=== PATIENT | female | born 1945 | race Caucasian/White ===

== ENCOUNTER 2025-06-15 09:45 | Outpatient (AMB) | payer OTHER, MEDICARE, SELFPAY ==
--- NOTE | 2025-06-15 09:57 | MHC.OFFVIS ---
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 Patient had CT abdomen/pelvis with contrast on 05/16/25. 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 From reports it appears to be stage II to stage III. 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 This was an incidental finding. She reports she does not know about this previously. 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 She has a known history of osteoarthritis and bursitis of the left hip. She is a nonsmoker but reports a fair amount of secondhand smoke. She is a nondiabetic with the last hemoglobin A1c at 6.3. She reports no other issues at the current time. She is quite concerned about this hypogastric aneurysm as she has a family history of embolism and stroke. She now presents for vascular evaluation. Review of Systems Const All systems reviewed & are unremarkable except as noted in HPI and below Reports no additional complaints ENT Reports Normal hearing present Card Denies chest pain, Denies chest pain at rest, Denies chest pain with activity and Denies pedal edema Resp Denies cough GI Denies abdominal pain Musc Denies abnormal gait, Denies muscle cramps and Denies radiating pain into limb Skin/Breast Denies skin ulcer and Denies wounds Neuro Reports Normal hearing present and Denies abnormal gait Psych Reports no additional complaints Physical Exam Const General: cooperative, healthy appearing and comfortable Orientation/consciousness: oriented to person, oriented to place and oriented to time HEENT Head: Yes normal to inspection Neck Neck: Yes normal visual inspection Carotids: no bruits Chest Chest palpation & inspection: normal inspection of the chest Resp Effort & Inspection: normal respiratory effort and able to speak in complete sentences Auscultation: clear to auscultation bilaterally, no crackles, no rales, no rhonchi and no wheezes Cardio Other: Bilateral palpable dorsalis pedis pulses Rate: regular rate Rhythm: regular rhythm Heart sounds: S1 normal heart sound present and S2 normal heart sound present Bruits: no carotid bruits Peripheral pulses: Peripheral pulses 2+ throughout GI Inspection: Yes normal to inspection Skin Wounds: no wounds Hair: normal Neuro General: oriented to person, oriented to place and oriented to time Cranial nerves: Yes CN's II-XII intact bilaterally and Yes Normal hearing present Cognition (Neuro): normal cognition Motor exam (neuro): 5/5 motor strength present throughout Extrem Other: venous exam: +2 edema with skin color changes General: No clubbing, No cyanosis and No edema Psych Appearance: grossly normal Mental Status: mental status grossly normal Speech and movement: Normal speech and movement present Results Reviewed Results Reviewed: Written report from CAT scan dated 05/16/2025 demonstrates 3 x 3.5 left internal iliac artery aneurysm completely thrombosed compared to 2.9 x 3.1 on prior exam. No evidence of abdominal aortic aneurysm. 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 We have discussed the pathophysiology of hypogastric aneurysms and the risk of ruptures. We have discussed rupture risk based on size. In addition we did discuss that she is at a low risk of rupture as it appears to be thrombosed now. In addition this is not at risk for embolization to the brain as well which was her big concern. In addition we have discussed conservative measures and risk factor modification for prevention of increase in size of the aneurysm. the patient is scheduled for surveillance follow-up in approximately 3 months for surveillance.. Thank you for allowing us to participate in the care of this patient Orders: Orders Blood Urea Nitrogen 3 Months I72.3 - Aneurysm of iliac artery Creatinine 3 Months I72.3 - Aneurysm of iliac artery CT angio abdomen pelvis 3 Months I72.3 - Aneurysm of iliac artery Coding Level of Care Code New Pt Level 4 (55821) Complex EM visit Add On G2211 Diagnoses Aneurysm of left internal iliac artery I72.3
--- OUTSIDE RECORDS SUMMARY | 2025-06-15 10:26 | XMS_ITS | Clinical Summary ---
Author Organization [facility], Address [address] [place] [address] Phone Care Team Providers Care Escalator Service Mechanic Name Role Phone Rachna Dickerson Primary Care Provider [phone] Allergies Active Allergy Reactions Criticality Noted Date Comments Oxycodone-Acetaminophen 05/08/2022 Sulfa Antibiotics Nausea And Vomiting 6 Medications hydroCHLOROthia zide 25 MG tablet Take 1 tablet by mouth 1 (one) time each day if needed For swelling 1 Active lisinopril 20 MG tablet Take 10 mg by mouth 1 (one) time each day if needed For Bps >130/80 1 Active dicyclomine (BENTYL) 20 MG tablet Take 20 mg by mouth every 6 (six) hours Active ibuprofen (ADVIL,MOTRIN) 600 MG tablet Take 600 mg by mouth every 6 (six) hours if needed for mild pain Active Diclofenac Sodium 1 % gel Apply topically Active diphenhydrAMINE (BENADRYL) 25 MG capsule Take 25 mg by mouth at night if needed for itching Active Active Problems Problem Noted Date Diagnosed Date Acute nontraumatic kidney injury, not otherwise specified 05/14/2022 Stage 3a chronic kidney disease 05/06/2022 Hyperlipidemia 06/11/2020 Hypertension 06/11/2020 Type 2 diabetes mellitus without complication Overview (05/06/2022): Has not been on med tx, she declined in the past. A1c stable Resolved Problems Problem Noted Date Diagnosed Date Resolved Date Primary osteoarthritis of left hip 07/15/2021 05/06/2022 Trochanteric bursitis of left hip 07/15/2021 05/06/2022 Gluten sensitivity 05/31/2021 2 Overweight 06/11/2020 05/06/2022 Immunizations Immunization Administration Dates Next Due Influenza Split High Dose Preservative Free IM 1 11/06/2017 Influenza, Trivalent, Adjuvanted 09/01/2017 Influenza, Unspecified 08/03/2017 Tdap 02/27/2016 Zoster 08/03/2017 Family History Medical History Relation Comments No Known Problems Father No Known Problems Mother Relation Status Comments Father Mother Social History Tobacco Use Types Packs/Day Years Used Date Smoking Tobacco: Never Smokeless Tobacco: Never Alcohol Use Standard Drinks/Week Comments Yes 0 (1 standard drink = 0.6 oz pur e alcohol) Rarely Comments Unknown Sex and Gender Information Value Date Recorded Sex Assigned at Not on file Legal Sex Female 1:48 PM EDT Gender Identity Not on file Sexual Orientation Not on file Last Filed Vital Signs Vital Sign Reading Time Taken Comments Blood Pressure 128/78 05/14/2022 4:05 PM EDT Pulse - - Temperature - - Respiratory Rate - - Oxygen Saturation - - Inhaled Oxygen Concentration - - Weight - - Height - - Body Mass Index - - Plan of Treatment Health Maintenance Due Date Last Done Comments Pneumococcal Vaccine: 50+ Years (1 of 2 - PCV) 1965 Diabetes: Hemoglobin A1C 03/13/2022 Diabetes: Ophthalmology Exam 03/13/2022 Diabetes: Pedal Pulse Checked 03/13/2022 Diabetes: Sensory Foot Exam 03/13/2022 Diabetes: Visual Foot Exam 03/13/2022 Influenza Vaccine (#1) 2025 8, 09/01/2017, 08/03/2017 Hepatitis B Vaccine Aged Out No longe r eligible based on patient's age to complete this topic Insurance [facility] Health Care Teams Escalator Service Mechanic Relationship Specialty Start Date End Date Rachna Dickerson [address] [place] [phone] PCP - General 03/12/22
--- OUTSIDE RECORDS SUMMARY | 2025-06-15 10:26 | XMS_ITS | Clinical Summary ---
Author Organization [facility] Address [address] [place] [address] Phone Care Team Providers Care Dynamite Packing Machine Feeder Name Role Phone Avtargeni Natashasukhdev Primary Care Provider [phone] Surgical History Surgery Date Site/Laterality Comments ABDOMINAL SURGERY PROCEDURE: HISTORICAL ABDOMINAL SURGERY Medical History Medical History Date Comments Headache DX:Headache Double vision DX:Double vision Essential hypertension DX:Essent ial hypertension Diabetes mellitus type 2, co ntrolled, with complications (CMS/HCC V24, CMS/HCC V28) DX:Diabetes mellitus type 2, controlled, with complications ([facility]) Social History Tobacco Use Types Packs/Day Years Used Date Smoking Tobacco: Never Smokeless Tobacco: Never Comments Unknown Sex and Gender Information Value Date Recorded Sex Assigned at Not on file Legal Sex Female 11:07 AM EDT Gender Identity Not on file Sexual Orientation Not on file Obstetrics History Last Filed Vital Signs Vital Sign Reading Time Taken Comments Blood Pressure - - Pulse - - Temperature - - Respiratory Rate - - Oxygen Saturation - - Inhaled Oxygen Concentration - - Weight 90.7 kg (200 lb) 02/04/2024 2:51 PM EDT Height 162.6 cm (5' 4 ) 02/04/2024 2:51 PM EDT Body Mass Index 34.33 02/04/2024 2:51 PM EDT Plan of Treatment Health Maintenance Due Date Last Done Comments DTaP,Tdap,and Td Vaccines (1 - Tdap) 1964 Pneumococcal Vaccine: 50+ Ye ars (1 of 1 - PCV) 1996 Zoster Vaccines (1 of 2) 1996 RSV Immunization Adult Patie nts (1 - 1-dose 75+ series) 2021 Falls Risk Assessment 05/27/2024 Hepatitis C Screening 05/27/2024 Medicare Annual Wellness Visit 05/27/2024 Osteoporosis Screening (Bone Density Screening) 05/27/2024 Social Influencers of Health Screening 05/27/2024 COVID-19 Vaccine (1 - 2023-2 5 season) 2024 Depression Screening 11/02/2024 Influenza Vaccine (#1) 2025 HIB Vaccines Aged Out No longer eligi ble based on patient's age to complete this topic HPV Vaccines Aged Out No longer eligi ble based on patient's age to complete this topic Hepatitis A Vaccines Aged Out No long er eligible based on patient's age to complete this topic Hepatitis B Vaccines Aged Out No long er eligible based on patient's age to complete this topic IPV Vaccines Aged Out No longer eligi ble based on patient's age to complete this topic MMR Vaccines Aged Out No longer eligi ble based on patient's age to complete this topic Meningococcal ACWY Vaccine Aged Out N o longer eligible based on patient's age to complete this topic Meningococcal B Vaccine Aged Out No l onger eligible based on patient's age to complete this topic RSV Immunization Patients Un bubba 20 months Aged Out No longer eligible b ased on patient's age to complete this topic Varicella Vaccines Aged Out No longer eligible based on patient's age to complete this topic Insurance [employer] Care Teams Dynamite Packing Machine Feeder Relationship Specialty Start Date End Date Duke Lopes DO [address] [place] [address] [phone] PCP - General 01/25/24
--- OUTSIDE RECORDS SUMMARY | 2025-06-15 10:26 | XMS_ITS | Encounter Summary ---
Author Organization [facility] Address [address] [place] [address] [place] [address] Phone Care Team Providers Care Dermatologist And Dermatopathologist Name Role Phone Pcp, Unknown Unavailable Unavailable Duke Lopes DO Primary Care Provider [phone] Mer Sellers MD Unavailable [phone] Hung Merchant EQUIPMENT MAINT TECH Primary Care Provider [phone] Encounter Details Date Type Department Care Team (Late st Contact Info) Description 03/01/2024 Procedure Pass [facility], Ct Scan - [address] [address] Social History Tobacco Use Types Packs/Day Years Used Date Smoking Tobacco: Never Smokeless Tobacco: Never Alcohol Use Standard Drinks/Week Comments Yes 0 (1 standard drink = 0.6 oz pur e alcohol) occ Education Answer Date Recorded Are you interested in more education? Not on bentley e 02/27/2023 Are you concerned about learning? Not on file 02/27/2023 No 02/27/2023 No 02/27/2023 Digital Access Answer Date Recorded No 03/30/2023 No 03/30/2023 Reliable internet access at home? Not on file 03/30/2023 Device with a working camera? Not on file Comments No Sex and Gender Information Value Date Recorded Sex Assigned at Not on file Legal Sex Female 10:37 PM EDT Gender Identity Not on file Sexual Orientation Not on file documented as of this encounter Plan of Treatment Upcoming Encounters Date Type Department Care Team (Late st Contact Info) Description 05/23/2025 Procedure Pass [facility], Mammography- [address] [address] 11/24/2025 10:00 AM EST Office Visit [facility] [address] [place] [address] Mer Sellers MD [address] [place] [phone] [email or web address] 11/29/2025 4:00 PM EST Office Visit [address] [address] Hung Merchant CNP [address] [place] [address] 01/05/2026 10:45 AM EST Appointment [address] [address] Mer Sellers MD [address] [place] [email or web address] documented as of this encounter Visit Diagnoses Not on filedocumented in this encounter Additional Health Concerns Assessment Noted Time PHQ-2 Depression Total Score: 0 05/31/20 21 12:36 PM EDT documented as of this encounter Care Teams Dermatologist And Dermatopathologist Relationship Specialty Start Date End Date Duke Lopes DO [address] [place] [phone] [email or web address] PCP - General Internal Medicine 03/05/23 05/10/24 Hung Merchant, EQUIPMENT MAINT TECH [address] [place] [phone] PCP - General Nurse Practitioner 05/11/24 Pcp, Unknown 11/05/17 Mer Sellers MD [address] [place] [address] [email or web address] Medical Oncology 04/14/23 documented as of this encounter Additional Source Comments The information contained in this document represents components of the legal health record. It is not the complete legal health record.[facility]
== END 2025-06-15 10:31 | disposition home or self-care (01) ==
LOC: HO.HVS 09:46
PROVIDERS: Visit Provider Surgery Vascular Surgery
DX: I72.3 Aneurysm of iliac artery (principal)
CPT/HCPCS: 99204; G2211

== ENCOUNTER 2025-08-23 09:19 | Outpatient (REF) | payer OTHER, SELFPAY ==
[2025-08-23 09:44] LABS: MANUAL DIFF FLAG NO
--- OUTSIDE RECORDS SUMMARY | 2025-08-23 10:41 | XMS_ITS | Encounter Summary ---
Author Organization [facility] Address [address] [place] [address] [place] [address] Phone Care Team Providers Care Senior Application Programmer Name Role Phone Pcp, Unknown Unavailable Unavailable Mer Sellers MD Unavailable [phone] Hung Merchant CNP Primary Care Provider [phone] Reason for Visit * Reason Comments Medication Refill Encounter Details Date Type Department Care Team (Late st Contact Info) Description 07/19/2025 Refill [facility] Family Medicine [address] [place] [address] Hung Merchant CNP [address] [place] [address] [email or web address] Medication Refill Social History Tobacco Use Types Packs/Day Years Used Date Smoking Tobacco: Never Smokeless Tobacco: Never Alcohol Use Standard Drinks/Week Comments Yes 1 (1 standard drink = 0.6 oz pur e alcohol) occ Child or Family Care Answer Date Record ed Do you have problems with on e of the following making it difficult for you to work, study, or receive health care? I choose not to answer 05/11/2024 Education Answer Date Recorded Are you interested in more education? Not on bentley e 02/27/2023 Are you concerned about learning? Not on file 02/27/2023 No 02/27/2023 No 02/27/2023 Food Answer Date Recorded Within the past 6 months we worried whether our food would run out before we got money to buy more. Never True 05/11/2024 Within the past 6 months the food we bought just didn't last and we didn't have enough money to get more. Never True Residential Stability Answer Date Recor ded What is your housing situation today? I have della jaramillo 05/11/2024 How many times have you move d in the past 12 months? Zero (I did not move) 05/11/2024 Paying for Meds Answer Date Recorded Do you have trouble paying for medicines? I stephon se not to answer 05/11/2024 Paying Utility Bills Answer Date Record ed Do you have trouble paying your heating or elect ricity bill? No 05/11/2024 Transportation Answer Date Recorded Has the lack of transportati on kept you from medical appointments or from getting medications? No 05/11/2024 Digital Access Answer Date Recorded No 05/11/2024 No 05/11/2024 Do you have reliable internet access at home? I choose not to answer 05/11/2024 Do you have a device (e.g., phone, tablet, computer) with a working camera? I choose not to answer 05/11/2024 Comments No Sex and Gender Information Value Date Recorded Sex Assigned at Not on file Legal Sex Female 10:37 PM EDT Gender Identity Not on file Sexual Orientation Not on file documented as of this encounter Progress Notes * Darlene Lucas - 07/19/2025 12:36 PM EDT Called patient again left a VM to see if she is taking this more often the usual Patient has not called back yet Refill will not be sent until we hear back from patient. documented in this encounter Plan of Treatment Upcoming Encounters Date Type Department Care Team (Late st Contact Info) Description 05/23/2025 Procedure Pass [address] [place] [address] 09/19/2025 9:30 AM EST Procedure visit [facility] Orthopedics & Sports Medicine [address] [place] [address] Ana Kirkpatrick MD [address] [place] [address] Orthopedics & Sports Medicine, [facility] [place] [address] 11/24/2025 10:00 AM EST Office Visit [facility] at [address] [address] Mer Sellers MD [address] [place] [address] 11/29/2025 4:00 PM EST Office Visit [address] [address] Hung Merchant CNP [address] [place] [address] 12/06/2025 8:15 AM EST Appointment [facility] [address] [address] Hung eMrchant CNP [address] [place] [address] 01/05/2026 10:45 AM EST Appointment [address] [address] Mer Sellers MD [address] [place] [address] documented as of this encounter Visit Diagnoses Diagnosis Bilateral hip pain Pain in joint, pelvic region and thigh documented in this encounter Additional Health Concerns Assessment Noted Time PHQ-2 Depression Total Score: 0 05/31/20 21 12:36 PM EDT documented as of this encounter Care Teams Senior Application Programmer Relationship Specialty Start Date End Date Hung Merchant CNP [address] [place] [address] PCP - General Nurse Practitioner 05/11/24 Pcp, Unknown 11/05/17 Mer Sellers MD [address] [place] [address] [email or web address] Medical Oncology 04/14/23 documented as of this encounter Additional Source Comments The information contained in this document represents components of the legal health record. It is not the complete legal health record.[facility]
--- OUTSIDE RECORDS SUMMARY | 2025-08-23 10:41 | XMS_ITS | Encounter Summary ---
Author Organization [facility] Address [address] [place] [address] [place] [address] Phone Care Team Providers Care Claims Coordinator Name Role Phone Pcp, Unknown Unavailable Unavailable Duke Lopes DO Primary Care Provider [phone] Mer Sellers MD Unavailable [phone] Hung Merchant CNP Primary Care Provider [phone] Encounter Details Date Type Department Care Team (Late st Contact Info) Description 09/10/2023 Procedure Pass [address] [address] Social History Tobacco Use Types Packs/Day Years [...] (Late st Contact Info) Description 05/23/[address] [address] 09/19/2025 9:30 AM EST Procedure visit [facility] Orthopedics & Sports Medicine [address] [place] [address] Ana Kirkpatrick MD [address] [place] [address] Orthopedics & Sports Medicine, [facility] [place] [address] 11/24/2025 10:00 AM EST Office Visit [facility] at [address] [address] Mer Sellers MD [address] [place] [address] 11/29/2025 4:00 PM EST Office Visit [address] [address] Hung Merchant, DRYWALL TAPER [address] [place] [address] 12/06/2025 8:15 AM EST Appointment [address] [address] Hung Merchant, DRYWALL TAPER [address] [place] [address] 01/05/2026 10:45 AM EST Appointment [address] [address] Mer Sellers MD [address] [place] [address] documented as of this encounter Visit Diagnoses Not on filedocumented in this encounter Additional Health Concerns Assessment Noted Time PHQ-2 Depression Total Score: 0 05/31/20 21 12:36 PM EDT documented as of this encounter Care Teams Claims Coordinator Relationship Specialty Start Date End Date Duke Lopes DO [address] [place] [address] [phone] [email or web address] PCP - General Internal Medicine 03/05/23 05/10/24 Hung Merchant CNP [address] [place] [phone] PCP - General Nurse Practitioner 05/11/24 Pcp, Unknown 11/05/17 Mer Sellers MD [address] [place] [address] Medical Oncology 04/14/23 documented as of this encounter Additional Source Comments The information contained in this document represents components of the legal health record. It is not the complete legal health record.[facility]
--- OUTSIDE RECORDS SUMMARY | 2025-08-23 10:41 | XMS_ITS | Encounter Summary ---
Author Organization [facility] Address [address] [place] [address] [place] [address] Phone Care Team Providers Care Sheet Hanger Name Role Phone Pcp, Unknown Unavailable Unavailable Duke Lopes DO Primary Care Provider [phone] Mer Sellers MD Unavailable [phone] Hung Merchant CNP Primary Care Provider [phone] Encounter Details Date Type Department Care Team (Late st Contact Info) Description 05/01/2023 Procedure Pass [address] [address] Social History Tobacco Use Types Packs/Day Years [...] (Late st Contact Info) Description 05/23/[address] [address] 09/19/2025 9:30 AM EST Procedure visit [facility] Orthopedics & Sports Medicine [address] [place] [address] Ana Kirkpatrick MD [address] [place] [address] Orthopedics & Sports Medicine, [place] [address] 11/24/2025 10:00 AM EST Office Visit [facility] at [address] [address] Mer Sellers MD [address] [place] [address] 11/29/2025 4:00 PM EST Office Visit [address] [address] Hung Merchant, CHEMIST HELPER [address] [place] [address] 12/06/2025 8:15 AM EST Appointment [address] [address] Hung Merchant, CHEMIST HELPER [address] [place] [address] 01/05/2026 10:45 AM EST Appointment [address] [address] Mer Sellers MD [address] [place] [address] documented as of this encounter Visit Diagnoses Not on filedocumented in this encounter Additional Health Concerns Assessment Noted Time PHQ-2 Depression Total Score: 0 05/31/20 21 12:36 PM EDT documented as of this encounter Care Teams Sheet Hanger Relationship Specialty Start Date End Date Duke Lopes DO [address] [place] [address] [phone] [email or web address] PCP - General Internal Medicine 03/05/23 05/10/24 Hung Merchant CNP [address] [place] [address] PCP - General Nurse Practitioner 05/11/24 Pcp, Unknown 11/05/17 Mer Sellers MD [address] [place] [address] Medical Oncology 04/14/23 documented as of this encounter Additional Source Comments The information contained in this document represents components of the legal health record. It is not the complete legal health record.[facility]
--- OUTSIDE RECORDS SUMMARY | 2025-08-23 10:41 | XMS_ITS | Encounter Summary ---
Author Organization [facility] Address [address] [place] [address] Phone Care Team Providers Care Elevator Mechanic Apprentice Name Role Phone Pcp, Unknown Unavailable Unavailable Mer Sellers MD Unavailable [phone] Hung Merchant KNITTER HAND Primary Care Provider [phone] Reason for Referral * MRI/CAT Scan - Closed Specialty Diagnoses / Procedures Referred By Contac t Referred To Contact Radiology Diagnoses Meningioma Brain mass Procedures MRI Brain CHG MRI BRAIN COMBO Roxanne Hansen PA [address] [place] [address] Phone: tel: fax: Referral ID Status Reason Start Date Expiration Date Visits Re quested Visits Authorized [id number] Closed 09/28/2024 11/26/2024 1 1 Encounter Details Date Type Department Care Team (Late st Contact Info) Description 09/28/2024 Transcribe Orders Virtual Department [address] [place] [address] Roxanne Hansen PA [address] [place] [address] Meningioma (Primary Dx); Brain mass Social History Tobacco Use Types Packs/Day Years [...] your housing situation today? I have della sing 05/11/2024 How many times have you move [...] st Contact Info) Description 05/23/2025 Procedure Pass [address] [address] 09/19/2025 9:30 AM EST Procedure visit [facility] Orthopedics & Sports Medicine [address] [place] [address] Ana Kirkpatrick MD [address] [place] [address] Orthopedics & Sports Medicine, [facility] [place] [place] [address] 11/24/2025 10:00 AM EST Office Visit [facility] at [address] [address] Mer Sellers MD [address] [place] [phone] [email or web address] 11/29/2025 4:00 PM EST Office Visit [address] [address] Hung Merchant, KNITTER HAND [address] [place] [phone] [email or web address] 12/06/2025 8:15 AM EST Appointment [address] [address] Hung Merchant, KNITTER HAND [address] [place] [address] 01/05/2026 10:45 AM EST Appointment [address] [address] Mer Sellers MD [address] [place] [address] documented as of this encounter Results * MRI BRAIN (SKULL BASE) WITH AND WITHOUT CONTRAST (11/07/2024 3:29 PM EST) Anatomical Region Laterality Modality Head Magnetic Resonan ce 11/09/2024 1:29 PM EST Impressions 11/09/2024 1:48 PM EST 1. No significant interval change in size and appearance of an enhancing mass centered in the posterior aspect of the right cavernous sinus, likely representing a meningioma. 2. 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 3. No acute intracranial abnormality. Narrative 11/09/2024 1:48 PM EST MRI BRAIN (SKULL BASE) WITH AND WITHOUT CONTRAST Referring clinician's provided indication for this examination in Epic: Outside Radiology Order; meningioma TECHNIQUE: Multi-sequence, multi-planar MRI of the brain including high resolution images of the skull base was performed before and after intravenous contrast. COMPARISON: MRI BRAIN (SKULL BASE) WITH AND WITHOUT CONTRAST FINDINGS: Petrous Apices, Clivus, Basilar Cisterns, Cavernous Sinuses, Sella, Cranial Nerves, Jugular Foramina and Post-styloid Parapharyngeal Spaces: There is redemonstration of a diffusely enhancing mass centered in the posterior aspect of the right cavernous sinuses. A current measurement of this mass is limited by appears unchanged compared to prior study, now measuring 1.6 x 1 cm, previously measured 1.7 x 1 cm. There is redemonstration of minimal extension into the superior aspect of the right Meckel's cave and minimal dorsal extension into the right prepontine cistern. This mass again encases the proximal aspect of the right cavernous ICA without evidence of caliber change or stenosis of the vessel. Brain Parenchyma: No evidence of acute infarct, mass, hemorrhage or abnormal enhancement. There are scattered foci of T2 hyperintensity in the white matter, likely a manifestation of chronic small vessel disease. Ventricular System and Extra-Axial Spaces: There is no evidence of midline shift or hydrocephalus. There is redemonstration of a 0.7 x 0.8 x 0.7 cm mildly lobulated cystic mass and the right posterior aspect of the pituitary gland, not significantly changed, previously measured 0.8 x 0.7 x 0.6 cm (remeasured). Miscellaneous: There are normal flow voids of the major intracranial vessels. There is mild mucosal thickening in the visualized paranasal sinuses. The mastoid air cells appear clear. The orbits and soft tissues are unremarkable. Procedure Note Deb Rosario MD - 11/09/2024 MRI BRAIN (SKULL BASE) WITH AND WITHOUT CONTRAST Referring clinician's provided indication for this examination in [facility]:Outside Radiology Order; meningioma TECHNIQUE: Multi-sequence, multi-planar MRI of the brain including highresolution images of the skull base was performed before and afterintravenous contrast. COMPARISON: MRI BRAIN (SKULL BASE) WITH AND WITHOUT CONTRAST FINDINGS: Petrous Apices, Clivus, Basilar Cisterns, Cavernous Sinuses, Sella,Cranial Nerves, Jugular Foramina and Post-styloid Parapharyngeal Spaces:There is redemonstration of a diffusely enhancing mass centered in theposterior aspect of the right cavernous sinuses. A current measurement ofthis mass is limited by appears unchanged compared to prior study, nowmeasuring 1.6 x 1 cm, previously measured 1.7 x 1 cm. There isredemonstration of minimal extension into the superior aspect of the rightMeckel's cave and minimal dorsal extension into the right prepontinecistern. This mass again encases the proximal aspect of the rightcavernous ICA without evidence of caliber change or stenosis of thevessel. Brain Parenchyma: No evidence of acute infarct, mass, hemorrhage orabnormal enhancement. There are scattered foci of T2 hyperintensity in thewhite matter, likely a manifestation of chronic small vessel disease. Ventricular System and Extra-Axial Spaces: There is no evidence of midlineshift or hydrocephalus. There is redemonstration of a 0.7 x 0.8 x 0.7 cmmildly lobulated cystic mass and the right posterior aspect of thepituitary gland, not significantly changed, previously measured 0.8 x 0.7x 0.6 cm (remeasured). Miscellaneous: There are normal flow voids of the major intracranialvessels. There is mild mucosal thickening in the visualized paranasalsinuses. The mastoid air cells appear clear. The orbits and soft tissuesare unremarkable. IMPRESSION: 1. No significant interval change in size and appearance of an enhancingmass centered in the posterior aspect of the right cavernous sinus, likelyrepresenting a meningioma. 2. No significant interval change in size of a 0.8 cm mildly lobulatedcystic mass in the right posterior aspect of the pituitary gland, likelyrepresenting a Rathke's cleft cyst. 3. No acute intracranial abnormality. Roxanne KING IMG MR HEAD/NECK Final Res ult documented in this encounter Visit Diagnoses Diagnosis Meningioma- Primary Benign neoplasm of cerebral meninges Brain mass Unspecified condition of brain Meningioma Benign neoplasm of cerebral meninges Brain mass Unspecified condition of brain documented in this encounter Additional Health Concerns Assessment Noted Time PHQ-2 Depression Total Score: 0 05/31/20 21 12:36 PM EDT documented as of this encounter Care Teams Elevator Mechanic Apprentice Relationship Specialty Start Date End Date Hung Merchant CNP [address] [place] [address] PCP - General Nurse Practitioner 05/11/24 Pcp, Unknown 11/05/17 Mer Sellers MD [address] [place] [address] Medical Oncology 04/14/23 documented as of this encounter Additional Source Comments The information contained in this document represents components of the legal health record. It is not the complete legal health record.[facility]
--- OUTSIDE RECORDS SUMMARY | 2025-08-23 10:41 | XMS_ITS | Encounter Summary ---
Author Organization [facility] Address [address] [place] [address] [place] [address] Phone Care Team Providers Care Irrigation Equipment Installer Name Role Phone Pcp, Unknown Unavailable Unavailable Duke Lopes DO Primary Care Provider [phone] Mer Sellers MD Unavailable [phone] Hung Merchant CNP Primary Care Provider [phone] Reason for Referral * MRI/CAT Scan - Closed Specialty Diagnoses / Procedures Referred By Malik brown Referred To Contact Radiology Diagnoses Pituitary lesion Procedures MRI Brain CHG MRI BRAIN COMBO Juanito Hassan MD [address] [place] [address], [address] [place] [address] Phone: tel: fax: [email or web address] Referral ID Status Reason Start Date Expiration Date Visits Re quested Visits Authorized [id number] Closed 09/10/2023 11/09/2023 1 1 Encounter Details Date Type Department Care Team (Latest Contact Info) Description 09/10/2023 Transcribe Orders Virtual Department [address] [place], [place] [phone] Juanito Hassan MD [address] [place] [address], [address] [place] [phone] [email or web address] Pituitary lesion (Primary Dx) Social History Tobacco Use Types Packs/Day Years [...] st Contact Info) Description 05/23/2025 Procedure Pass [facility], [address] [address] 09/19/2025 9:30 AM EST Procedure visit [facility] Orthopedics & Sports Medicine [address] [place] [address] Ana Kirkpatrick MD [address] [place] [address] Orthopedics & Sports Medicine, [place] [address] 11/24/2025 10:00 AM EST Office Visit [facility] at [address] [address] Mer Sellers MD [address] [place] [address] 11/29/2025 4:00 PM EST Office Visit [facility] [address] [place] [address] Hung Merchant, FLORENTINO [address] [place] [address] 12/06/2025 8:15 AM EST Appointment [facility], Bone Density [address] [address] Hung Merchant, FLORENTINO [address] [place] [address] 01/05/2026 10:45 AM EST Appointment [address] [address] Mer Sellers MD [address] [place] [address] [email or web address] documented as of this encounter Results * MRI BRAIN (SKULL BASE) WITH AND WITHOUT CONTRAST (10/19/2023 3:17 PM EST) Anatomical Region Laterality Modality Head Magnetic Resonan ce 10/22/2023 7:17 AM EST Impressions 10/23/2023 9:39 PM EST Similar ill-defined approximately 1.5 cm mass along the posterior aspect of the right cavernous sinus, minimally extending into the prepontine cistern and superior aspect of Meckel's cave on the right, likely a meningioma. 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 Narrative 10/23/2023 9:39 PM EST MRI BRAIN (SKULL BASE) WITH AND WITHOUT CONTRAST Referring clinician's provided indication for this examination in Epic: Outside Radiology Order; PITUITARY LESION TECHNIQUE: Multi-sequence, multi-planar MRI of the brain including high resolution images of the skull base was performed before and after intravenous contrast. COMPARISON: Brain MRI 09/12/2022 FINDINGS: Brain Parenchyma: No evidence of acute infarct, mass lesion, or hemorrhage. There is redemonstration of an a 7 x 8 x 5 mm (AP x TRV x SI) nonenhancing cystic lesion along the posterior pituitary gland. Skull base and associated structures: There is redemonstration of asymmetric mild soft tissue prominence involving the posterior right cavernous sinus, with minimal extension into the prepontine cistern, with the overall abnormality difficult to precisely measure but likely at least 1.5 x 1.1 cm (12:119). There is partial encasement of the cavernous portion of right internal carotid artery without significant narrowing. There is also minimal effacement of the superior aspect of Meckel's cave on the right on 600:96. Ventricular System and Extra-Axial Spaces: Normal. No evidence of midline shift or hydrocephalus. Extracranial Structures: Arterial flow voids in the skull base are present. Right maxillary sinus mucus retention cysts. Procedure Note Henry Reyes MD - 10/23/2023 MRI BRAIN (SKULL BASE) WITH AND WITHOUT CONTRAST Referring clinician's provided indication for this examination in Epic:Outside Radiology Order; PITUITARY LESION TECHNIQUE: Multi-sequence, multi-planar MRI of the brain including highresolution images of the skull base was performed before and afterintravenous contrast. COMPARISON: Brain MRI 09/12/2022 FINDINGS: Brain Parenchyma: No evidence of acute infarct, mass lesion, orhemorrhage. There is redemonstration of an a 7 x 8 x 5 mm (AP x TRV x SI)nonenhancing cystic lesion along the posterior pituitary gland. Skull base and associated structures: There is redemonstration ofasymmetric mild soft tissue prominence involving the posterior rightcavernous sinus, with minimal extension into the prepontine cistern, withthe overall abnormality difficult to precisely measure but likely at least1.5 x 1.1 cm (12:119). There is partial encasement of the cavernousportion of right internal carotid artery without significant narrowing.There is also minimal effacement of the superior aspect of Meckel's caveon the right on 600:96. Ventricular System and Extra-Axial Spaces: Normal. No evidence of midlineshift or hydrocephalus. Extracranial Structures: Arterial flow voids in the skull base arepresent. Right maxillary sinus mucus retention cysts. IMPRESSION: Similar ill-defined approximately 1.5 cm mass along the posterior aspectof the right cavernous sinus, minimally extending into the prepontinecistern and superior aspect of Meckel's cave on the right, likely ameningioma. 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 Juanito Hassan MD IMG MR HEAD/NECK Final Resul t documented in this encounter Visit Diagnoses Diagnosis Pituitary lesion- Primary Pituitary lesion documented in this encounter Additional Health Concerns Assessment Noted Time PHQ-2 Depression Total Score: 0 05/31/20 21 12:36 PM EDT documented as of this encounter Care Teams Irrigation Equipment Installer Relationship Specialty Start Date End Date Duke Lopes DO [address] [place] [address] [address] [place] [address] [email or web address] PCP - General Internal Medicine 03/05/23 05/10/24 Hung Merchant CNP [address] [place] [address] PCP - General Nurse Practitioner 05/11/24 Pcp, Unknown 11/05/17 Mer Sellers MD [address] [place] [address] Medical Oncology 04/14/23 documented as of this encounter Additional Source Comments The information contained in this document represents components of the legal health record. It is not the complete legal health record.[facility]
--- OUTSIDE RECORDS SUMMARY | 2025-08-23 10:41 | XMS_ITS | Encounter Summary ---
Author Organization [facility] Address [address] [place] [address] [place] [address] Phone Care Team Providers Care Statistical Methods Professor Name Role Phone Pcp, Unknown Unavailable Unavailable Duke Lopes DO Primary Care Provider [phone] Mer Sellers MD Unavailable [phone] Hung Merchant ENVIRONMENTAL COMPLIANCE ENGINEER Primary Care Provider [phone] Encounter Details Date Type Department Care Team (Late st Contact Info) Description 03/01/2024 Procedure Pass [facility], Ct Scan - [address] [address] Social History Tobacco Use Types Packs/Day Years [...] st Contact Info) Description 05/23/2025 Procedure Pass [facility], Mammography- [facility] [address] [place] [address] 09/19/2025 9:30 AM EST Procedure visit [facility] Orthopedics & Sports Medicine [address] [place] [address] Ana Kirkpatrick MD [address] [place] [address] Orthopedics & Sports Medicine, [facility] [place] [address] 11/24/2025 10:00 AM EST Office Visit [facility] at [address] [address] Mer Sellers MD [address] [place] [address] 11/29/2025 4:00 PM EST Office Visit [address] [address] Hung Merchant, ENVIRONMENTAL COMPLIANCE ENGINEER [address] [place] [address] 12/06/2025 8:15 AM EST Appointment [address] [address] Hung Merchant, ENVIRONMENTAL COMPLIANCE ENGINEER [address] [place] [address] 01/05/2026 10:45 AM EST Appointment [address] [address] Mer Sellers MD [address] [place] [email or web address] documented as of this encounter Visit Diagnoses Not on filedocumented in this encounter Additional Health Concerns Assessment Noted Time PHQ-2 Depression Total Score: 0 05/31/20 21 12:36 PM EDT documented as of this encounter Care Teams Statistical Methods Professor Relationship Specialty Start Date End Date Duke Lopes DO [address] [place] [phone] [email or web address] PCP - General Internal Medicine 03/05/23 05/10/24 Hung Merchant CNP [address] [place] [address] PCP - General Nurse Practitioner 05/11/24 Pcp, Unknown 11/05/17 Mer Sellers MD [address] [place] [address] Medical Oncology 04/14/23 documented as of this encounter Additional Source Comments The information contained in this document represents components of the legal health record. It is not the complete legal health record.[facility]
--- OUTSIDE RECORDS SUMMARY | 2025-08-23 10:41 | XMS_ITS | Clinical Summary ---
Author Organization [facility] Address [address] [place] [address] Phone Care Team Providers Care Truck Shop Mechanic Name Role Phone Pcp, Unknown Unavailable Unavailable Mer Sellers MD Unavailable [phone] Hung Merchant CNP Primary Care Provider [phone] Allergies Active Allergy Reactions Criticality Noted Date Comments Oxycodone-Acetaminophen 05/08/2022 Sulfa (Sulfonamide Antibiotics) Nausea and/or Vomiting 02/27/2016 Medications diclofenac sodium (VOLTAREN) 1 % Gel Apply topically. Active ibuprofen (ADVIL,MOTRIN) 600 MG tablet Take 600 mg by mouth every 6 (six) hours as needed. Active fluorouraciL (EFUDEX) 5 % cream Apply 1 Application topically 2 (two) times a day. 11/09/19 25 Active lisinopril (PRINIVIL,ZESTRIL) 20 MG tablet TAKE 1 TABLET(20 MG) BY MOUTH DAILY 90 tablet 05/24/20 25 Active hydroCHLOROthiazid e 25 MG tablet TAKE 1 TABLET(25 MG) BY MOUTH DAILY 90 tablet 05/24/20 25 Active atorvastatin (LIPITOR) 40 MG tabletIndications: Mixed hyperlipidemia Take 1 tablet (40 mg total) by mouth daily. 90 tablet 07/21/20 25 Active traMADoL (ULTRAM) 50 mg tabletIndications: Bilateral hip pain Take 1 tablet (50 mg total) by mouth every 6 (six) hours as needed for pain (specific location in comments) (hip pain). 30 tablet 08/07/20 25 Active colchicine (COLCRYS) 0.6 mg tablet Take 1 tablet (0.6 mg total) by mouth daily. 30 tablet 08/08/20 25 Active traMADoL (ULTRAM) 50 mg tabletIndications: Bilateral hip pain Take 1 tablet (50 mg total) by mouth every 6 (six) hours as needed for pain (specific location in comments). 20 tablet 07/21/20 025 Discontin ued(Reord er) Active Problems Problem Noted Date Diagnosed Date Postmenopausal 08/07/2025 Assessment & Plan (08/07/2025 2:37 PM EDT): Requesting to complete bone density for screening, has never completed. Order entered and phone # provided for patient for scheduling Bilateral hip pain 03/01/2025 Assessment & Plan (08/07/2025 2:37 PM EDT): Met with Dr. Hernandez Likely will benefit from hip replacement in the future. For now, is going to do injections scheduled 09/19/25. Using Tramadol sparingly as needed, requesting refill. PDMP verified. Advised after injections, hope to no longer use. Continue with Tylenol/Ibuprofen as needed Assessment & Plan (03/02/2025 9:59 AM EDT): Intermittent pain, worse on left side, primarily affected when working in the yard. Is not interested in PT/ortho. Has used OTC remedies with no improvement. Had rx for Tramadol and uses sparingly, requesting refill. Advised short rx sent for patient to use only as needed when pain is severe, no driving/ETOH use. Reviewed risks/benefits. PDMP verified and rx sent Medicare annual wellness visit, subsequent 11/23 Assessment & Plan (11/23/2024 8:28 PM EST): Preventive care reviewed. Fasting labs done 01/2024. Reports has HCP/will. Immunizations reviewed and will confirm with [facility] for what she is due for as that is where she gets them done. Plan for recheck in 3 months, aware to follow- up sooner if needed Female stress incontinence 08/26/2022 High alkaline phosphatase 08/26/2022 History of colon cancer 07/29/2022 Assessment & Plan (03/02/2025 9:58 AM EDT): Following with Dr. Sellers through [facility], has CT scan scheduled 05/2025 Assessment & Plan (11/23/2024 8:23 PM EST): Sees Dr. Sellers every six months. Has repeat CT scans 05/2025 Assessment & Plan (05/12/2024 6:49 AM EDT): Following with Dr. Sellers every six months. Sees [facility], last colonoscopy 03/2023 and on [address] abdomen/pelvis and chest scheduled later this month. Feels well with no acute concerns Primary adenocarcinoma of colon 07/29/2022 Stage 3a chronic kidney disease 05/06/2022 Assessment & Plan (05/12/2024 6:51 AM EDT): Last CMP done 01/2024 and normal/baseline creatinine/GFR Trochanteric bursitis of left hip 07/15/2021 Primary osteoarthritis of left hip 07/15/2021 Gluten intolerance 05/31/2021 Hyperlipidemia 06/11/2020 Assessment & Plan (08/07/2025 2:36 PM EDT): Lipid panel done 01/2025 with LDL slightly above goal, working on diet/exercise. Assessment & Plan (03/01/2025 3:48 PM EDT): Tolerating statin without apparent side effects. Lipid panel done recently and improvement in LDL. Will keep at current dose with plan to work on diet/exercise. Assessment & Plan (11/23/2024 8:26 PM EST): Has been on statin but stopped as was unsure if it was causing weakness in her legs. Last lipid panel 01/2024. Is agreeable to restart and will she how she tolerates, if develops side effects could consider changing agent. Plan for repeat fasting labs 12/2024 Assessment & Plan (05/12/2024 6:50 AM EDT): Last lipid panel 01/2024 and LDL above goal. Had been on Atorvastatin but caused her skin to be itchy therefore stopped. Declines to restart a statin, prefers to focus on diet/exercise White coat syndrome with diagnosis of hypertensi on 06/11/2020 Assessment & Plan (08/07/2025 2:38 PM EDT): BP at goal, continue medications as prescribed Assessment & Plan (03/01/2025 3:47 PM EDT): BP at goal today, continue medications as prescribed. DASH diet/regular exercise, CMP done 08/2024 Assessment & Plan (11/23/2024 8:25 PM EST): Notes BP always elevated during office visits. Checks BP consistently at home, typically 130/70's. Is taking medications as prescribed. Routine labs done 01/2024, plan to repeat 12/3024 Assessment & Plan (05/12/2024 6:49 AM EDT): Managed on current regimen of medications. Labs done 01/2024. Encourage healthy diet/regular exercise Overweight 06/11/2020 Type 2 diabetes mellitus without complications 0 06/11/2020 Overview (05/31/2021): Has not been on med tx, she declined in the past. A1c stable Assessment & Plan (08/07/2025 2:36 PM EDT): POC today 4%, unsure how accurate as much lower than previous. Lab draw ordered, prefers to do with labs at [facility], ordered by Dr. Harris, orders printed/provided for patient, will follow-up with results once received Assessment & Plan (03/01/2025 3:47 PM EDT): Most recent A1C at goal. Continue to work on diet/exercise Assessment & Plan (11/23/2024 8:27 PM EST): Not currently on medication. Last A1C 07/2024. Ordered to repeat and will follow- up with results. Encourage healthy diet/regular exercise Assessment & Plan (05/12/2024 6:50 AM EDT): Is not currently on medications and declines. Feels working on diet/exercise is helping. Last A1C 01/2024 6.5%. Will repeat today to ensure remains stable/normal with continued focus on diet/exercise Encounters Date Type Department Care Team Description 08/08/[address] [address] Darlene Lucas 08/07/2025 1:45 PM EDT Office Visit [address] [address] Hung Merchant CNP Bilateral hip pain (Primary Dx); Type 2 diabetes mellitus without complication, without long-term current use of insulin; White coat syndrome with diagnosis of hypertension; Postmenopausal; Mixed hyperlipidemia 07/31/2025 2:15 PM EDT Office Visit [facility] Orthopedics & Sports Medicine [address] [place] [address] Ana Kirkpatrick MD Primary localized osteoarthritis of left hip (Primary Dx); Pain; Primary localized osteoarthritis of right hip 07/31/2025 2:12 PM EDT - 07/31/2025 11:59 PM EDT Hospital Encounter [address] [address] Ana Kirkpatrick MD Discharge Disposition: Home or Self Care [address] [address] Hung Merchant CNP Medication Refill [address] [address] Hung Merchant CNP Medication Refill [address] [address] Hung Merchant CNP Triage (Hip pain ) [address] [place] [address] Hung Merchant CNP 07/19/[address] [address] Hung Merchant CNP Medication Refill 07/17/[address] [address] Hung Merchant CNP Medication Refill 06/23/2025 Orders Only [place] [address] [place] [address] Provider, MD Cesilia 06/01/[address] [address] Hung Merchant CNP Results; Request For Records 05/25/[address] [address] Hung Merchant CNP Referral 05/24/[address] [address] Hung Merchant CNP Medication Refill (Lisinopril, hydrochlorothiazide) 05/23/2025 11:00 AM EDT Office Visit [facility] at [address] [address] Mer Sellers MD Screening mammogram for breast cancer (Primary Dx) from Last 3 Months Immunizations Immunization Administration Dates Next Due COVID-19 (Pre-08/24) Luis E Vaccine, rS-Ad26, P F 03/01/2021 INFLUENZA, SPLIT VIRUS, TRIVALENT W/ PRESERVATIV E IM 08/06/2011 Influenza High-Dose Trivalent Preservative Free IM 09/06/2018 Influenza Quadrivalent Adjuvanted Preservative F ree IM 08/04/2022 Influenza Trivalent Adjuvanted Preservative free IM 09/01/2017 Influenza, Unspecified Formulation 08/03/2017 Pneumococcal conjugate PCV20 05/16/2023 Tdap 02/27/2016 Zoster live 08/03/2017 Family History Medical History Relation Comments Hodgkins lymphoma Brother Hodgkins lymphoma Sister Breast cancer Neg Hx Colon cancer Neg Hx Relation Status Comments Brother Father Mother Sister Social History Tobacco Use Types Packs/Day Years Used Date Smoking Tobacco: Never Smokeless Tobacco: Never Tobacco Cessation:Counseling Given: Not Answered Alcohol Use Standard Drinks/Week Comments Yes 1 [...] Sign Reading Time Taken Comments Blood Pressure 132/72 08/07/2025 1:54 PM EDT Pulse 78 08/07/2025 1:54 PM EDT Temperature 36.6 C (97.8 F) 08/07/2025 1:54 PM EDT Respiratory Rate 20 03/01/2025 3:16 PM EDT Oxygen Saturation 96% 08/07/2025 1:54 PM EDT Inhaled Oxygen Concentration - - Weight 94.4 kg (208 lb 3.2 oz) 08/07/2025 1:54 P M EDT Height 163 cm (5' 4.17 ) 05/23/2025 11:13 AM EDT Body Mass Index 35.55 05/23/2025 11:13 AM EDT Plan of Treatment Upcoming Encounters Date Type Department Care Team (Late st Contact Info) Description 05/23/2025 Procedure Pass [facility], [address] [address] 09/19/2025 9:30 AM EST Procedure visit [facility] Orthopedics & Sports Medicine [address] [place] [address] Ana Kirkpatrick MD [address] [place] [address] Orthopedics & Sports Medicine, [place] [address] 11/24/2025 10:00 AM EST Office Visit Located Within [facility] at [address] [address] Mer Sellers MD [address] [place] [address] 11/29/2025 4:00 PM EST Office Visit [address] [address] Hung Merchant, FLORENTINO [address] [place] [address] 12/06/2025 8:15 AM EST Appointment [facility], Bone Density [address] [address] Hung Merchant, PHYS THER [address] [place] [address] 01/05/2026 10:45 AM EST Appointment [facility], Mammography[address] [address] Mer Sellers MD [address] [place] [address] [email or web address] Health Maintenance Due Date Last Done Comments ZOSTER VACCINES (1 of 2) 09/28/2017 08/03/2017 RSV VACCINE (1 - 1-dose 75+ series) 2021 INFLUENZA VACCINE (#1) 2025 , 09/06/2018, 09/01/2017, Additional history exists COVID-19 VACCINE (2 - season) 2025 03/01/2021 HEMOGLOBIN A1C 08/22/2025 02/20/2025, 07/04, 01/25/2024, Additional history exists BLOOD PRESSURE 02/05/2026 08/07/2025 Adult Td,Tdap Booster 02/26/2026 02/27/2016 CREATININE LEVEL 05/18/2026 05/18/2025, , 02/26/2024, Additional history exists POTASSIUM LEVEL 05/18/2026 05/18/2025, 08/03, 02/26/2024, Additional history exists DIABETIC EYE EXAM 06/23/2026 06/23/2025 DEPRESSION SCREENING 08/07/2026 08/07/2025, 06/11/20 OSTEOPOROSIS SCREENING INITIAL (ONE-TIME) 06/13/2030 Postponed from 2011 (Patient Cannot Afford / Insurance Does Not Cover) HEPATITIS C SCREENING Completed 10/24/2020 PNEUMOCOCCAL VACCINES (50+ years) Completed 05/16/2023 SMOKING STATUS SCREENING (Once After 26 Yrs) Completed 08/07/2025 HEPATITIS A VACCINES Aged Out No long er eligible based on patient's age to complete this topic HIB VACCINES Aged Out No longer eligi ble based on patient's age to complete this topic MENINGOCOCCAL VACCINES (ACWY) Aged Out No longer eligible based on patient's age to complete this topic MENINGOCOCCAL VACCINES (B) Aged Out N o longer eligible based on patient's age to complete this topic Medical Devices Not on file Procedures Procedure Name Priority Date/Time Associated Diagnosis Comments XR HIPS BILATERAL 1-2 VIEWS Routine 07/31/2025 2:23 PM EDT Pain DIABETES EYE EXAM FOR RESULT ENTRY ONLY Routine 06/23/2025 4:49 PM EDT COMPREHENSIVE METABOLIC PANEL STAT 05/18/2025 9:03 AM EDT History of colon cancer HEMOGLOBIN A1C Routine 02/20/2025 12:49 PM EDT Type 2 diabetes mellitus without complication, without long-term current use of insulin HEPATITIS C ANTIBODY, QUALITATIVE Routine 10/24/2020 8:17 AM EST Well adult health check from Last 3 Months or Most Recently Relevant to Health Maintenance Results * XR HIPS BILATERAL 1-2 VIEWS (07/31/2025 2:23 PM EDT) Narrative SYSTEMGENERATED, DOCUMENTATION - 07/31/2025 2:23 PM EDT This image report has been auto-finalized and has not been read by a Radiologist. Interpretation has been included in the provider encounter note for this date of service. Ana Kirkpatrick MD IMG XR PELVIS Final Res ult * DIABETES EYE EXAM FOR RESULT ENTRY ONLY (06/23/2025 4:49 PM EDT) Historical Provider HEALTH MAINTENANCE Edited Result - Final * (ABNORMAL) Comprehensive metabolic panel (05/18/2025 9:03 AM EDT) SODIUM 139 133 - 146 mmol/L [facility] POTASSIUM 3.8 3.3 - 5.1 mmol/L [facility] CHLORIDE 98 96 - 108 mmol/L [facility] CO2 29 21 - 35 mmol/L [facility] BUN 36(H) 6 - 19 mg/dL [facility] CREATININE 1.40 0.5 - 1.5 mg/dL [facility] GLUCOSE 143(H) 70 - 99 mg/dL [facility] ALBUMIN 4.5 3.9 - 4.8 g/dL [facility] TOTAL PROTEIN 7.6 6.5 - 8.0 g/dL [facility] CALCIUM 10.1 8.4 - 10.3 mg/dL [facility] ALKALINE PHOSPHATASE 110 39 - 117 U/L [facility] TOTAL BILIRUBIN 0.7 0.0 - 1.2 mg/dL [facility] AST 27 0 - 37 U/L [facility] ALT 28 0 - 40 U/L [facility] GLOBULIN 3.1 1 - 4.8 g/dL [facility] EGFR 39(L) >59 mL/min/1.7 3m2 [facility] Comment:Estimated glomerular filtration rate calculated using the CKD-EPI refit equation. ANION GAP 16 10 - 20 mmol/L [facility] Blood 05/18/2025 9:03 AM EDT 05/18/2025 9:08 AM EDT us Mer Sellers MD LAB BLOOD ORDERABLES Final Re sult [address] [address] * (ABNORMAL) Hemoglobin A1c (02/20/2025 12:49 PM EDT) HEMOGLOBIN A1C 6.3(H) 4.3 - 5.8 % [facility] Blood 02/20/2025 12:4 9 PM EDT 02/20/2025 12:54 PM EDT us Hung Merchant CNP LAB BLOOD ORDERABLES Final Result [address] [address] * Hepatitis C antibody, qualitative (10/24/2020 8:17 AM EST) HCV NON-REACTIV E NON-REACTI VE [facility] Blood 10/24/2020 8:17 AM EST 10/24/2020 8:21 AM EST us Vignesh Serrano MD LAB BLOOD ORDERABLES Final Resu lt [address] [address] from Last 3 Months or Most Recently Relevant to Health Maintenance Insurance [employer] RE[employer] [place] RE[employer] [place] H[employer] [facility]PLACEMENT [facility] [address] [place], [place] [facility] [address] [place], [place] [facility] [address] [place] [facility] [address] [place], [place] Care Teams Truck Shop Mechanic Relationship Specialty Start Date End Date Hung Merchant CNP [address] [place] [id number] [email or web address] PCP - General Nurse Practitioner 05/11/24 Pcp, Unknown 11/05/17 Mer Sellers MD [address] [place] [email or web address] Medical Oncology 04/14/23 Additional Source Comments The information contained in this document represents components of the legal health record. It is not the complete legal health record.[facility]
--- OUTSIDE RECORDS SUMMARY | 2025-08-23 10:41 | XMS_ITS | Encounter Summary ---
Author Organization [facility] Address [address] [place] [address] [place] [address] Phone Care Team Providers Care Optical Coating Technician Name Role Phone Pcp, Unknown Unavailable Unavailable Duke Lopes DO Primary Care Provider [phone] Mer Sellers MD Unavailable [phone] Hung Merchant LIFE SCIENCES MANAGER Primary Care Provider [phone] Encounter Details Date Type Department Care Team (Late st Contact Info) Description 03/01/2024 Procedure Pass [facility], Ct Scan - [address] [address] Social History Tobacco Use Types Packs/Day Years [...] st Contact Info) Description 05/23/2025 Procedure Pass [facility], Mammography- [facility] [address] [place] [address] 09/19/2025 9:30 AM EST Procedure visit [facility] Orthopedics & Sports Medicine [address] [place] [address] Ana Kirkpatrick MD [address] [place] [address] Orthopedics & Sports Medicine, [facility] [place] [address] 11/24/2025 10:00 AM EST Office Visit [facility] at [address] [address] Mer Sellers MD [address] [place] [address] 11/29/2025 4:00 PM EST Office Visit [address] [address] Hung Merchant, LIFE SCIENCES MANAGER [address] [place] [address] 12/06/2025 8:15 AM EST Appointment [address] [address] Hung Merchant, LIFE SCIENCES MANAGER [address] [place] [address] 01/05/2026 10:45 AM EST Appointment [address] [address] Mer Sellers MD [address] [place] [address] documented as of this encounter Visit Diagnoses Not on filedocumented in this encounter Additional Health Concerns Assessment Noted Time PHQ-2 Depression Total Score: 0 05/31/20 21 12:36 PM EDT documented as of this encounter Care Teams Optical Coating Technician Relationship Specialty Start Date End Date Duke Lopes DO [address] [place] [phone] [email or web address] PCP - General Internal Medicine 03/05/23 05/10/24 Hung Merchant CNP [address] [place] [address] PCP - General Nurse Practitioner 05/11/24 Pcp, Unknown 11/05/17 Mer Sellers MD [address] [place] [address] Medical Oncology 04/14/23 documented as of this encounter Additional Source Comments The information contained in this document represents components of the legal health record. It is not the complete legal health record.[facility]
--- OUTSIDE RECORDS SUMMARY | 2025-08-23 10:41 | XMS_ITS | Encounter Summary ---
Author Organization [facility] Address [address] [place] [address] Phone Care Team Providers Care Building Equipment Operator Name Role Phone Pcp, Unknown Unavailable Unavailable Mer Sellers MD Unavailable [phone] Hung Merchant CNP Primary Care Provider [phone] Encounter Details Date Type Department Care Team (Late st Contact Info) Description 09/28/2024 Procedure Pass [facility], [address] [address] Social History Tobacco Use Types Packs/Day Years [...] st Contact Info) Description 05/23/2025 Procedure Pass [address] [address] 09/19/2025 9:30 AM EST Procedure visit [facility] Orthopedics & Sports Medicine [address] [place] [address] Ana Kirkpatrick MD [address] [place] [address] Orthopedics & Sports Medicine, [place] [address] 11/24/2025 10:00 AM EST Office Visit [facility] at [address] [address] Mer Sellers MD [address] [place] [email or web address] 11/29/2025 4:00 PM EST Office Visit [address] [address] Hung Merchant, [address] [place] [address] 12/06/2025 8:15 AM EST Appointment [facility] Bone Density [address] [address] Hung Merchant CNP [address] [place] [address] 01/05/2026 10:45 AM EST Appointment [facility] [address]amm[address] [address] Mer Sellers MD [address] [place] [address] documented as of this encounter Visit Diagnoses Not on filedocumented in this encounter Additional Health Concerns Assessment Noted Time PHQ-2 Depression Total Score: 0 05/31/20 21 12:36 PM EDT documented as of this encounter Care Teams Building Equipment Operator Relationship Specialty Start Date End Date Hung Merchant CNP [address] [place] [address] PCP - General Nurse Practitioner 05/11/24 Pcp, Unknown 11/05/17 Mer Sellers MD [address] [place] [address] Medical Oncology 04/14/23 documented as of this encounter Additional Source Comments The information contained in this document represents components of the legal health record. It is not the complete legal health record.[facility]
--- OUTSIDE RECORDS SUMMARY | 2025-08-23 10:41 | XMS_ITS | Encounter Summary ---
Author Organization [facility] Address [address] [place] [address] [place] [address] Phone Care Team Providers Care Personnel Counselor Name Role Phone Pcp, Unknown Unavailable Unavailable Mer Sellers MD Unavailable [phone] Hung Merchant CNP Primary Care Provider [phone] Reason for Visit * Reason Comments Medication Refill Encounter Details Date Type Department Care Team (Late st Contact Info) Description 07/17/2025 Refill [facility] [address] [place] [address] Hung Merchant CNP [address] [place] [address] [email or web address] Medication Refill Social History [...] encounter Progress Notes * Darlene Lucas - 07/17/2025 3:21 PM EDT VM left for patient to see how often she is using the medication as it was just filled on 06/10/25, asked patient to give us a call back and let us know. * Hung Merchant CNP - 07/17/2025 3:15 PM EDT Please call patient, has she been using this medication more frequently. Had only been using sparingly and last filled 06/10/25 * Darlene Lucas - 07/17/2025 2:45 PM EDT Rx Care Gap Status - Instructions for Clinical Staff (prescriber discretion applies): > Mismatch review guide > Check PDMP for all controlled medication requests. Visit Info Last visit: 03/01/2025 Hung Merchant, FLORENTINO - Family Medicine [facility] Neftali VERGARA > Requested f/u: Return in about 6 months (around 08/31/2025) for Recheck. Upcoming visit: 11/29/2025 Hung Merchant CNP - Family [facility] Neftali [facility] [employer] ACTIONS TAKEN BY Darlene Lucas - Checked PDMP/MassPAT. 06/10/2025 1 Tramadol Hcl 50 Mg Tablet 20 5 Opioid Rx Protocol - tramadol HClPRESCRIBER ATTENTION REQUIRED - Please evaluate Controlled substance renewals are at prescriber discretion. Pain mgmt profile/toxicology (urine/saliva) may be considered annually or more frequently if indicated. In-person visit in past 2 years: Yes (Last in-person visit: 03/01/2025 (Hung Merchant CNP - [facility]ftali [facility] [employer])) Visit in past 4 months: No No benzodiazepine on medication list Opioid agreement on file: No Pain management profile/toxicology in past 12 months: No documented in this encounter Plan of Treatment Upcoming Encounters Date Type Department Care Team (Late st Contact Info) Description 05/23/2025 Procedure Pass [address] [address] 09/19/2025 9:30 AM EST Procedure visit [facility] Orthopedics & Sports Medicine [address] [place] [address] Ana Kirkpatrick MD [address] [place] [address] Orthopedics & Sports Medicine, [facility] [place] [address] 11/24/2025 10:00 AM EST Office Visit [facility] at [address] [address] Mer Sellers MD [address] [place] [address] [email or web address] 11/29/2025 4:00 PM EST Office Visit [address] [address] Hung Merchant CNP [address] [place] [email or web address] 12/06/2025 8:15 AM EST Appointment [address] [address] Hung Merchant CNP [address] [place] [address] 01/05/2026 10:45 AM EST Appointment [address] [address] Mer Sellers MD [address] [place] [address] documented as of this encounter Visit Diagnoses Diagnosis Bilateral hip pain Pain in joint, pelvic region and thigh documented in this encounter Additional Health Concerns Assessment Noted Time PHQ-2 Depression Total Score: 0 05/31/20 21 12:36 PM EDT documented as of this encounter Care Teams Personnel Counselor Relationship Specialty Start Date End Date Hung Merchant, FLORENTINO [address] [place] [address] PCP - General Nurse Practitioner 05/11/24 Pcp, Unknown 11/05/17 Mer Sellers MD [address] [place] [address] [email or web address] Medical Oncology 04/14/23 documented as of this encounter Additional Source Comments The information contained in this document represents components of the legal health record. It is not the complete legal health record.[facility]
--- OUTSIDE RECORDS SUMMARY | 2025-08-23 10:41 | XMS_ITS | Encounter Summary ---
Author Organization [facility] Address [address] [place] [address] [place] [address] Phone Care Team Providers Care Clinical Sciences Professor Name Role Phone Pcp, Unknown Unavailable Unavailable Duke Lopes DO Primary Care Provider [phone] Mer Sellers MD Unavailable [phone] Hung Merchant HOT STONE SETTER Primary Care Provider [phone] Encounter Details Date Type Department Care Team (Late st Contact Info) Description 05/01/2023 Procedure Pass [facility], Ct Scan - [address] [address] Social History Tobacco Use Types Packs/Day Years [...] st Contact Info) Description 05/23/2025 Procedure Pass [facility], Mammography- [address] [address] 09/19/2025 9:30 AM EST Procedure visit [facility] Orthopedics & Sports Medicine [address] [place] [address] Ana Kirkpatrick MD [address] [place] [address] Orthopedics & Sports Medicine, [facility] [place] [address] 11/24/2025 10:00 AM EST Office Visit [facility] at [address] [address] Mer Sellers MD [address] [place] [address] 11/29/2025 4:00 PM EST Office Visit [address] [address] Hung Merchant, HOT STONE SETTER [address] [place] [address] 12/06/2025 8:15 AM EST Appointment [address] [address] Hung Merchant, HOT STONE SETTER [address] [place] [address] 01/05/2026 10:45 AM EST Appointment [address] [address] Mer Sellers MD [address] [place] [address] documented as of this encounter Visit Diagnoses Not on filedocumented in this encounter Additional Health Concerns Assessment Noted Time PHQ-2 Depression Total Score: 0 05/31/20 21 12:36 PM EDT documented as of this encounter Care Teams Clinical Sciences Professor Relationship Specialty Start Date End Date Duke Lopes DO [address] [place] [address] [phone] [email or web address] PCP - General Internal Medicine 03/05/23 05/10/24 Hung Merchant CNP [address] [place] [address] [email or web address] PCP - General Nurse Practitioner 05/11/24 Pcp, Unknown 11/05/17 Mer Sellers MD [address] [place] [address] Medical Oncology 04/14/23 documented as of this encounter Additional Source Comments The information contained in this document represents components of the legal health record. It is not the complete legal health record.[facility]
--- OUTSIDE RECORDS SUMMARY | 2025-08-23 10:41 | XMS_ITS | Encounter Summary ---
Author Organization [facility] Address [address] [place] [address] [place] [address] Phone Care Team Providers Care Network Operations Specialist Name Role Phone Pcp, Unknown Unavailable Unavailable Duke Lopes DO Primary Care Provider [phone] Mer Sellers MD Unavailable [phone] Hung Merchant KETTLE OPERATOR Primary Care Provider [phone] Encounter Details Date Type Department Care Team (Late st Contact Info) Description 05/01/2023 Procedure Pass [facility], Ct Scan - [address] [address] Social History Tobacco Use Types Packs/Day Years [...] st Contact Info) Description 05/23/2025 Procedure Pass [facility], Mammography- [address] [address] 09/19/2025 9:30 AM EST Procedure visit [facility] Orthopedics & Sports Medicine [address] [place] [address] Ana Kirkpatrick MD [address] [place] [address] Orthopedics & Sports Medicine, [facility] [place] [address] 11/24/2025 10:00 AM EST Office Visit [facility] at [address] [address] Mer Sellers MD [address] [place] [address] 11/29/2025 4:00 PM EST Office Visit [address] [address] Hung Merchant, KETTLE OPERATOR [address] [place] [address] 12/06/2025 8:15 AM EST Appointment [address] [address] Hung Merchant, KETTLE OPERATOR [address] [place] [address] 01/05/2026 10:45 AM EST Appointment [address] [address] Mer Sellers MD [address] [place] [address] documented as of this encounter Visit Diagnoses Not on filedocumented in this encounter Additional Health Concerns Assessment Noted Time PHQ-2 Depression Total Score: 0 05/31/20 21 12:36 PM EDT documented as of this encounter Care Teams Network Operations Specialist Relationship Specialty Start Date End Date Duke Lopes DO [address] [place] [address] [phone] [email or web address] PCP - General Internal Medicine 03/05/23 05/10/24 Hung Merchant CNP [address] [place] [phone] [email or web address] PCP - General Nurse Practitioner 05/11/24 Pcp, Unknown 11/05/17 Mer Sellers MD [address] [place] [address] [email or web address] Medical Oncology 04/14/23 documented as of this encounter Additional Source Comments The information contained in this document represents components of the legal health record. It is not the complete legal health record.[facility]
--- OUTSIDE RECORDS SUMMARY | 2025-08-23 10:42 | XMS_ITS | Encounter Summary ---
Author Organization [facility] Address [address] [place] [address] Phone Care Team Providers Care Wallpaper Remover Steam Name Role Phone Pcp, Unknown Unavailable Unavailable Mer Sellers MD Unavailable [phone] Hung Merchant CNP Primary Care Provider [phone] Encounter Details Date Type Department Care Team (Late st Contact Info) Description 08/31/2024 Procedure Pass [facility], Ct Scan - [address] [address] Social History Tobacco Use Types Packs/Day Years [...] is your housing situation today? I have delal sing 05/11/2024 How many times have you [...] st Contact Info) Description 05/23/2025 Procedure Pass [address] [address] 09/19/2025 9:30 AM EST Procedure visit [facility] Orthopedics & Sports Medicine [address] [place] [address] Ana Kirkpatrick MD [address] [place] [address] Orthopedics & Sports [place], [place] [address] 11/24/2025 10:00 AM EST Office Visit [facility] at [address] [address] Mer Sellers MD [address] [place] [address] 11/29/2025 4:00 PM EST Office Visit [address] [address] Hung Merchant, [address] [place] [address] 12/06/2025 8:15 AM EST Appointment [facility], Bone Density [address] [address] Hung Merchant CNP [address] [place] [address] 01/05/2026 10:45 AM EST Appointment [address] [address] Mer Sellers MD [address] [place] [address] documented as of this encounter Visit Diagnoses Not on filedocumented in this encounter Additional Health Concerns Assessment Noted Time PHQ-2 Depression Total Score: 0 05/31/20 21 12:36 PM EDT documented as of this encounter Care Teams Wallpaper Remover Steam Relationship Specialty Start Date End Date Hung Merchant CNP [address] [place] [address] [email or web address] PCP - General Nurse Practitioner 05/11/24 Pcp, Unknown 11/05/17 Mre Sellers MD [address] [place] [address] Medical Oncology 04/14/23 documented as of this encounter Additional Source Comments The information contained in this document represents components of the legal health record. It is not the complete legal health record.[facility]
--- OUTSIDE RECORDS SUMMARY | 2025-08-23 10:42 | XMS_ITS | Encounter Summary ---
Author Organization [facility] [place] [facility] Address [address] [place] [address] Phone Care Team Providers Care Developer Advocate Name Role Phone Pcp, Unknown Unavailable Unavailable Mer Sellers MD Unavailable [phone] Hung Merchant CNP Primary Care Provider [phone] Reason for Visit * Reason Onset Date Comments Triage 2025 Hip pain Encounter Details Date Type Department Care Team (Late st Contact Info) Description 2025 Telephone [employer] [facility] Medicine [address] [place] [address] Hung Merchant CNP [address] [place] [address] [email or web address] Triage (Hip pain ) Social History Tobacco Use Types Packs/Day Years [...] as of this encounter Progress Notes * Dilcia Jackson - 2025 9:59 AM EDT CD PEN Top Smart Phrases: Red Yellow Green Guidelines Select Red, Yellow, Green Triage Intake *Route to appropriate staff member/pool according to practice guidelines* Green Call Intake Call Back Number: (if not patient, name/relationship [phone] Green Symptom(s): Triage (Hip pain ) When did these symptoms start? On going Have you ever experienced these symptoms before? Reason patient was not scheduled? Additional Information: Pt needs RX Schedule appointment or offer Care Alternative Options provided in RYOG Tool Follow practice guidelines for routing directions Reason for Call = TRIAGE Comment = GREEN + symptom or NURSING ADVICE REQUEST if requesting to speak with nursing documented in this encounter Plan of Treatment Upcoming Encounters Date Type Department Care Team (Late st Contact Info) Description 05/23/2025 Procedure Pass [address] [address] 09/19/2025 9:30 AM EST Procedure visit [facility] Orthopedics & Sports Medicine [address] [place] [address] Ana Kirkpatrick MD [address] [place] [address] Orthopedics & Sports Medicine, [place] [address] 11/24/2025 10:00 AM EST Office Visit [facility] at [address] [address] Mer Sellers MD [address] [place] [address] 11/29/2025 4:00 PM EST Office Visit [address] [address] Hung Merchant, SAW STRAIGHTENER [address] [place] [address] 12/06/2025 8:15 AM EST Appointment [facility] Bone Density [address] [address] Hung Merchant, SAW STRAIGHTENER [address] [place] [address] [email or web address] 01/05/2026 10:45 AM EST Appointment [address] [address] Mer Sellres MD [address] [place] [address] documented as of this encounter Visit Diagnoses Not on filedocumented in this encounter Additional Health Concerns Assessment Noted Time PHQ-2 Depression Total Score: 0 05/31/20 21 12:36 PM EDT documented as of this encounter Care Teams Developer Advocate Relationship Specialty Start Date End Date Hung Merchant CNP [address] [place] [address] PCP - General Nurse Practitioner 05/11/24 Pcp, Unknown 11/05/17 Mer Sellers MD [address] [place] [address] Medical Oncology 04/14/23 documented as of this encounter Additional Source Comments The information contained in this document represents components of the legal health record. It is not the complete legal health record.[facility]
--- OUTSIDE RECORDS SUMMARY | 2025-08-23 10:42 | XMS_ITS | Encounter Summary ---
Author Organization [facility] Address [address] [place] [address] Phone Care Team Providers Care Fruit Loader Machine Operator Name Role Phone Pcp, Unknown Unavailable Unavailable Mer Sellers MD Unavailable [phone] Hung Merchant CNP Primary Care Provider [phone] Encounter Details Date Type Department Care Team (Late st Contact Info) Description 08/31/2024 Procedure Pass [facility], Ct Scan - [address] [address] Social History Tobacco Use Types Packs/Day Years [...] st Contact Info) Description 05/23/2025 Procedure Pass [address] [address] 09/19/2025 9:30 AM EST Procedure visit [facility] Orthopedics & Sports Medicine [address] [place] [address] Ana Kirkpatrick MD [address] [place] [address] Orthopedics & Sports Medicine, [place] [address] 11/24/2025 10:00 AM EST Office [facility] Center at [address] [address] Mer Sellers MD [address] [place] [address] 11/29/2025 4:00 PM EST Office Visit [address] [address] Hung Merchant, [address] [place] [address] [email or web address] 12/06/2025 8:15 AM EST Appointment [facility], Bone Density [address] [address] Hung Merchant CNP [address] [place] [address] 01/05/2026 10:45 AM EST Appointment [address] [address] Mer Sellers MD [address] [place] [address] documented as of this encounter Visit Diagnoses Not on filedocumented in this encounter Additional Health Concerns Assessment Noted Time PHQ-2 Depression Total Score: 0 05/31/20 21 12:36 PM EDT documented as of this encounter Care Teams Fruit Loader Machine Operator Relationship Specialty Start Date End Date Hung Merchant CNP [address] [place] [address] PCP - General Nurse Practitioner 05/11/24 Pcp, Unknown 11/05/17 Mer Sellers MD [address] [place] [address] Medical Oncology 04/14/23 documented as of this encounter Additional Source Comments The information contained in this document represents components of the legal health record. It is not the complete legal health record.[facility]
--- OUTSIDE RECORDS SUMMARY | 2025-08-23 10:42 | XMS_ITS | Clinical Summary ---
Author Organization [facility] Address [address] [place] [address] Phone Care Team Providers Care Arch Support Maker Name Role Phone Avtargeni Natashasukhdev Primary Care Provider [phone] Surgical History Surgery Date Site/Laterality Comments ABDOMINAL SURGERY PROCEDURE: HISTORICAL ABDOMINAL SURGERY Medical History Medical History Date Comments Headache DX:Headache Double vision DX:Double vision Essential hypertension DX:Essent ial hypertension Diabetes mellitus type 2, co ntrolled, with complications (CMS/HCC V24, CMS/HCC V28) DX:Diabetes mellitus type 2, controlled, with complications ([facility]) Social History Tobacco Use Types [...] 05/27/2024 Social Influencers of Health Screening 05/27/2024 Depression Screening 11/02/2024 COVID-19 Vaccine (1 - 2023-2 5 season) 2025 Influenza Vaccine (#1) 2025 HIB Vaccines Aged [...] [employer] [place] [employer] Care Teams Arch Support Maker Relationship Specialty Start Date End Date Duke Lopes DO [address] [place] [phone] PCP - General 01/25/24
--- OUTSIDE RECORDS SUMMARY | 2025-08-23 10:42 | XMS_ITS | Encounter Summary ---
Author Organization [facility] Address [address] [place] [address] [place] [address] Phone Care Team Providers Care Second Crusher Name Role Phone Pcp, Unknown Unavailable Unavailable Mer Sellers MD Unavailable [phone] Hung Merchant CNP Primary Care Provider [phone] Reason for Visit * Reason Onset Date Comments rx refill 03/01/2025 Encounter Details Date Type Department Care Team (Late st Contact Info) Description 03/01/[address] [facility] Medicine [address] [place] [address] Hung Merchant CNP [address] [place] [address] [email or web address] rx refill Social History Tobacco Use Types Packs/Day Years [...] as of this encounter Progress Notes * Yulissa Christopher MA - 03/02/2025 9:56 AM EDT Rx Care Gap Status - Instructions for Clinical Staff (prescriber discretion applies): > Please check PDMP/MassPAT for all controlled substances requested. Visit Info Last visit: 03/01/2025 Hung Merchant CNP - Family Medicine [facility] Neftali VERGARA > Requested f/u: Return in about 6 months (around 08/31/2025) for Recheck. Upcoming visit: 11/29/2025 Hung Merchant CNP - Family Medicine [facility] Neftali VERGARA ACTIONS TAKEN BY Yulissa Christopher MA - Refill protocol passed: no action needed. - Checked PDMP/MassPAT Opioid Rx Protocol - tramadol HCl Controlled substance renewals are at prescriber discretion. Pain management profile/toxicology testing (urine/saliva) may be considered annually or more frequently if clinically indicated. In-person visit in the past 2 years: Yes (Last in-person visit: 03/01/2025 (Hung Merchant, FLORENTINO - [facility] Neftali VERGARA)) Visit in the past 4 months: Yes No benzodiazepine on medication list Opioid agreement on file: No Pain management profile/toxicology testing in past 12 months: No * Lizbeth Patel - 03/01/2025 3:59 PM EDT Tramadol 50 MG send to [facility] documented in this encounter Plan of Treatment Upcoming Encounters Date Type Department Care Team (Late st Contact Info) Description 05/23/2025 Procedure Pass [address] [address] 09/19/2025 9:30 AM EST Procedure visit [facility] Orthopedics & Sports Medicine [address] [place] [address] Ana Kirkpatrick MD [address] [place] [address] Orthopedics & Sports Medicine, [place] [address] 11/24/2025 10:00 AM EST Office Visit [facility] at [address] [address] Mer Sellers MD [address] [place] [address] 11/29/2025 4:00 PM EST Office Visit [address] [address] Hung Merchant, FLORENTINO [address] [place] [address] 12/06/2025 8:15 AM EST Appointment [facility], Bone Density [address] [address] Hung Merchant CNP [address] [place] [address] 01/05/2026 10:45 AM EST Appointment [facility], Mammography[address] [address] Mer Sellers MD [address] [place] [address] documented as of this encounter Visit Diagnoses Diagnosis Bilateral hip pain Pain in joint, pelvic region and thigh documented in this encounter Additional Health Concerns Assessment Noted Time PHQ-2 Depression Total Score: 0 05/31/20 21 12:36 PM EDT documented as of this encounter Care Teams Second Crusher Relationship Specialty Start Date End Date Hung Merchant CNP [address] [place] [address] PCP - General Nurse Practitioner 05/11/24 Pcp, Unknown 11/05/17 Mer Sellers MD [address] [place] [address] Medical Oncology 04/14/23 documented as of this encounter Additional Source Comments The information contained in this document represents components of the legal health record. It is not the complete legal health record[facility]
--- OUTSIDE RECORDS SUMMARY | 2025-08-23 10:42 | XMS_ITS | Encounter Summary ---
Author Organization [facility] Address [address] [place] [address] Phone Care Team Providers Care Tip Printer Name Role Phone Pcp, Unknown Unavailable Unavailable Mer Sellers MD Unavailable [phone] Hung Merchant CNP Primary Care Provider [phone] Encounter Details Date Type Department Care Team (Late st Contact Info) Description 2025 Telephone [employer] [facility] [address] [place] [address] Hung Merchant, FLORENTINO [address] [place] [address] [email or web address] Social History Tobacco Use Types Packs/Day Years [...] st Contact Info) Description 05/23/2025 Procedure Pass [address] [address] 09/19/2025 9:30 AM EST Procedure visit [facility] [address] [place] [address] Ana Kirkpatrick MD [address] [place] [address] [facility] [place] [address] 11/24/2025 10:00 AM EST Office Visit [facility] at [address] [address] Mer Sellers MD [address] [place] [address] 11/29/2025 4:00 PM EST Office Visit [address] [address] Hung Merchant CNP [address] [place] [address] 12/06/2025 8:15 AM EST Appointment [facility] [address] [address] Hung Merchant CNP [address] [place] [address] 01/05/2026 10:45 AM EST Appointment [address] [address] Mer Sellers MD [address] [place] [address] documented as of this encounter Visit Diagnoses Not on filedocumented in this encounter Additional Health Concerns Assessment Noted Time PHQ-2 Depression Total Score: 0 05/31/20 21 12:36 PM EDT documented as of this encounter Care Teams Tip Printer Relationship Specialty Start Date End Date Hung Merchant CNP [address] [place] [address] PCP - General Nurse Practitioner 05/11/24 Pcp, Unknown 11/05/17 Mer Sellers MD [address] [place] [address] Medical Oncology 04/14/23 documented as of this encounter Additional Source Comments The information contained in this document represents components of the legal health record. It is not the complete legal health record.[facility]
[2025-08-23 11:15] LABS: Hematocrit 40.7 % (37.0-47.0); Hemoglobin 13.9 g/dl (12.0-16.0); Imm Gran Abs Auto 0.02 X10*3/uL (0.00-0.03); Imm Gran Pct Auto 0.2 % (0.0-0.4); Lymphocytes Absolute Auto 2.8 X10*3/uL (1.2-4.9); Mean Corpuscular HGB Conc 34.2 g/dl (31.0-35.0); Mean Corpuscular Hemoglobin 31.4 pg (27.0-33.0); Mean Corpuscular Volume 91.9 fL (80.0-98.0); NRBC Abs Auto 0.000 X10*3/uL (0.0-0.012); NRBC Pct Auto 0.0 /100WBC (0.0-0.2); Platelet Count 249 X10*3/uL (160-400); Red Blood Count 4.43 X10*6/uL (4.20-5.50); White Blood Count 8.6 X10*3/uL (4.8-10.8)
[2025-08-23 11:52] LABS: Alanine Aminotransferase 24 U/L (0-31); Albumin Level 4.7 g/dL (3.5-5.0); Alkaline Phosphatase 90 U/L (39-117); Anion Gap 16 (12-20); Aspartate Amino Transferase 25 U/L (5-31); Blood Urea Nitrogen 52 mg/dL (9-16); Calcium 9.3 mg/dL (8.4-10.2); Carbon Dioxide 26 mmol/L (22-29); Chloride 100 mmol/L (96-108); Estimated Glomerular Filt Rate 38; Potassium 3.5 mmol/L (3.3-5.1); Sodium 138 mmol/L (135-145); Total Protein 7.5 g/dL (6.5-8.0)
== END 2025-08-23 09:20 | disposition home or self-care (01) ==
LOC: HO.LAB 09:19
PROVIDERS: Absent Provider Surgery Vascular Surgery; PCP Registered Nurse; Visit Provider Registered Nurse
DX: E11.9 Type 2 diabetes mellitus without complications (principal); I10 Essential (primary) hypertension
CPT/HCPCS: 36415; 80053; 83036; 85025

== ENCOUNTER 2025-08-31 12:49 | Outpatient (REF) | payer OTHER, SELFPAY ==
--- NOTE | ~2025-08-31 | CT_ITS ---
EXAMINATION: CT ANGIOGRAM ABDOMEN AND PELVIS CLINICAL INFORMATION: I72.3. Aneurysm of iliac artery, left hypogastric. COMPARISON: None available. TECHNIQUE: Multiple axial images were obtained through the abdomen and pelvis following the administration of 80 mL of Omnipaque 350 intravenous contrast during the arterial phase. Images were reviewed on a dedicated 3-D workstation. Maximum intensity projections. This CT examination was performed using dose optimization techniques as appropriate, variously including the following: *Automated exposure control *Adjustment of mA and/or kV according to patient size (this includes techniques or standardized protocols for targeted exams where dose is matched to indication/reason for exam; i.e. extremities or head) *Use of iterative reconstruction technique DLP: 364 mGy-cm FINDINGS: Abdominal aorta: Normal patency. Irregular shaped mixed plaques throughout the wall. Suprarenal segment measures 22 mm in maximum diameter. Infrarenal segment measures 21 mm in maximum diameter. Distal segment measures 18 mm in maximum diameter. There is a 4 mm contrast-filled vascular abnormality at the 10:00 position of the wall. Right common iliac artery is patent and measures 10 mm in maximal diameter. Irregular shaped mixed plaque. Right external iliac artery is patent with a 6 mm diameter. Right internal iliac artery is patent with a 9 mm diameter. Left common iliac arteries patent and measures 13 mm in maximum diameter. Left external iliac artery is patent and measures 6 mm in maximum diameter. Left internal iliac artery is patent. There is a 41 mm nonenhancing low density measuring 45 Hounsfield units in the proximal to mid segment with punctate calcifications. Celiac trunk is patent without focal stenosis. Calcified plaque in the origin. Superior mesenteric artery is patent with focal calcification in the origin. No focal stenosis. No intimal flap. Normal diameter. Inferior mesenteric artery is patent without gross calcification. Right main renal artery is patent with mixed plaques. Left main renal artery is patent with a mixed plaque. Inadequate evaluation of the intra-abdominal and retroperitoneal organs secondary to the arterial phase acquisition. There is a hiatal hernia, moderate size. Spleen measures 10 cm. Liver measures 17 cm.. No peripancreatic fluid collection. Gallbladder is nondistended. No intrahepatic or extrahepatic biliary ductal dilatation. Soft tissue fullness, left adrenal gland without gross nodular lesions. Diastases abdominal rectus muscles in a gas-filled nondilated distal small bowel loops. Sutures in the transverse colon and absent right hemicolon. Prominent nonspecific mesenteric and retroperitoneal lymph nodes. Mixed plaques in the thoracic aorta and coronary arteries. Calcified uterine fibroids. Moderate to severe degenerative changes in the left coxofemoral joint. Moderate degenerative changes in the right coxofemoral joint. Sclerosis and the sacroiliac joints. Multilevel thoracolumbar spondylosis resulting in grade 1 anterolisthesis L4-5 on a degenerative basis. Osteopenia versus osteoporosis.. 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 Coronary artery disease and atherosclerosis disease. Umbilical hernia containing omental fat and nondilated segment of small bowel loop. Status post right hemicolectomy. Multilevel spondylosis resulting in grade 1 anterolisthesis L4-5. 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 Fleischner guidelines were followed. Electronically signed by: Eugene Poe MD 08/31/2025 02:15 PM EDT
[2025-08-31] MEDS: iohexoL 350 MG/ML 100 ML INFUS..BTL IV (13:55)
--- OUTSIDE RECORDS SUMMARY | 2025-08-31 15:42 | XMS_ITS | Clinical Summary ---
Author Organization [facility] Address [address] [place] [address] Phone Care Team Providers Care Margin Clerk Name Role Phone Pcp, Unknown Unavailable Unavailable Mer Sellers MD Unavailable [phone] Hung Merchant CNP Primary Care Provider [phone] Allergies Active Allergy Reactions Criticality Noted Date Comments Oxycodone-Acetaminophen 05/08/2022 Sulfa (Sulfonamide Antibiotics) Nausea and/or Vomiting 02/27/2016 Medications diclofenac sodium (VOLTAREN) 1 % Gel Apply topically. Active ibuprofen (ADVIL,MOTRIN) 600 MG tablet Take 600 mg by mouth every 6 (six) hours as needed. Active fluorouraciL (EFUDEX) 5 % cream Apply 1 Application topically 2 (two) times a day. Active atorvastatin (LIPITOR) 40 MG tabletIndications :Mixed hyperlipidemia Take 1 tablet (40 mg total) by mouth daily. 90 tablet 025 Active colchicine (COLCRYS) 0.6 mg tablet Take 1 tablet (0.6 mg total) by mouth daily. 30 tablet 025 Active lisinopril (PRINIVIL,ZESTRIL ) 20 MG tablet TAKE 1 TABLET(20 MG) BY MOUTH DAILY 90 tablet 025 Active hydroCHLOROthiazi de 25 MG tablet TAKE 1 TABLET(25 MG) BY MOUTH DAILY 90 tablet 025 Active traMADoL (ULTRAM) 50 mg tabletIndications :Bilateral hip pain Take 1 tablet (50 mg total) by mouth every 6 (six) hours as needed for pain (specific location in comments) (hip pain). 30 tablet 10/27/2 025 Active lisinopril (PRINIVIL,ZESTRIL ) 20 MG tablet TAKE 1 TABLET(20 MG) BY MOUTH DAILY 90 tablet 2024 Discontinued hydroCHLOROthiazi de 25 MG tablet TAKE 1 TABLET(25 MG) BY MOUTH DAILY 90 tablet 025 2024 Discontinued traMADoL (ULTRAM) 50 mg tabletIndications :Bilateral hip pain Take 1 tablet (50 mg total) by mouth every 6 (six) hours as needed for pain (specific location in comments). 20 tablet 025 2024 Discontinued(R eorder) traMADoL (ULTRAM) 50 mg tabletIndications :Bilateral hip pain Take 1 tablet (50 mg total) by mouth every 6 (six) hours as needed for pain (specific location in comments) (hip pain). 30 tablet 2024 Discontinued(R eorder) Active Problems Problem Noted Date Diagnosed Date [...] AM EDT): Following with Dr. Sellers through [facility], has CT scan scheduled 05/2025 Assessment & Plan (11/23/2024 8:23 PM EST): Sees Dr. Sellers every six months. Has repeat CT scans 05/2025 Assessment & Plan (05/12/2024 6:49 AM EDT): Following with Dr. Sellers every six months. Sees [facility], last colonoscopy 03/2023 and on 3 year [...] ordered, prefers to do with labs at [facility], ordered by Dr. Harris, orders printed/provided for [...] Encounters Date Type Department Care Team Description 08/31/2025 Orders Only [facility] [address] [place] [address] ProviderCesilia MD 08/28/2025 Telephone [facility] [address] [place] [address] Hung Merchant CNP 08/28/2025 Refill [facility] [address] [place] [address] Richard Mercado MA Medication Refill 08/25/2025 Refill [facility] [address] [place] [address] Judy Becerra PA-C Medication Refill 08/24/2025 Orders Only [facility] [address] [place] [address] Hung Merchant CNP Type 2 diabetes mellitus without complication, without long-term current use of insulin; White coat syndrome with diagnosis of hypertension 08/08/2025 Refill [facility] [address] [place] [address] Darlene Lucas 08/07/2025 1:45 PM EDT Office Visit [address] [address] Hung Merchant CNP Bilateral hip pain (Primary Dx); Type 2 diabetes mellitus without complication, without long-term current use of insulin; White coat syndrome with diagnosis of hypertension; Postmenopausal; Mixed hyperlipidemia 07/31/2025 2:15 PM EDT Office Visit [facility] Orthopedics & Sports Medicine [address] [place] [address] Ana Kirkpatrcik MD Primary localized osteoarthritis of left hip (Primary Dx); Pain; Primary localized osteoarthritis of right hip 07/31/2025 2:12 PM EDT - 07/31/2025 11:59 PM EDT Hospital Encounter [address] [address] Ana Kirkpatrick MD Discharge Disposition: Home or Self Care [address] [address] Hung Merchant CNP Medication Refill [address] [address] Hung Merchant CNP Medication Refill [address] [address] Hung Merchant CNP Triage (Hip pain ) [address] [address] Hung Merchant CNP 07/19/[address] [address] Hung Merchant CNP Medication Refill 07/17/[address] [address] Hung Merchant CNP Medication Refill 06/23/2025 Orders Only [facility] [address] [place] [address] ProviderCesilia MD 06/01/2025 Telephone [facility] [address] [place] [address] Hung Merchant CNP Results; Request For Records from Last 3 Months Immunizations Immunization Administration Dates Next Due COVID-19 (Pre-08/24) Morphy Vaccine, rS-Ad26, P F 03/01/2021 INFLUENZA, SPLIT [...] have trouble paying for medicines? I stephon lopes not to answer 05/11/2024 Paying Utility Bills [...] st Contact Info) Description 05/23/2025 Procedure Pass [facility] [address] [place] [address] 09/19/2025 9:30 AM EST Procedure visit [facility] Orth[facility] Medicine [address] [place] [address] Ana Kirkpatrick MD [address] [place] [address] Orthopedics & Sports Medicine, [facility] [place] [address] 11/24/2025 10:00 AM EST Office Visit [facility] at [address] [address] Mer Sellers MD [address] [place] [address] 11/29/2025 4:00 PM EST Office Visit [address] [address] Hung Merchant, DICE DEALER [address] [place] [email or web address] 12/06/2025 8:15 AM EST Appointment [address] [address] Hung Merchant, DICE DEALER [address] [place] [address] 01/05/2026 10:45 AM EST Appointment [address] [address] Mer Sellers MD [address] [place] [address] Health Maintenance Due Date Last Done Comments ZOSTER VACCINES (1 of 2) 09/28/2017 08/03/2017 RSV VACCINE (1 - 1-dose 75+ series) 2021 INFLUENZA VACCINE (#1) 2025 2, 09/06/2018, 09/01/2017, Additional history exists COVID-19 VACCINE (2 - 2024-26 season) 2025 03/01/2021 HEMOGLOBIN A1C 08/22/2025 02/20/2025, 07/04, 01/25/2024, Additional history exists BLOOD PRESSURE 02/05/2026 08/07/2025 Adult Td,Tdap Booster 02/26/2026 02/27/2016 POTASSIUM LEVEL 05/18/2026 05/18/2025, 08/03, 02/26/2024, Additional history exists DIABETIC EYE EXAM 06/23/2026 06/23/2025 DEPRESSION SCREENING 08/07/2026 08/07/2025, 06/11/20 CREATININE LEVEL 08/23/2026 08/23/2025, , 08/25/2024, Additional history exists OSTEOPOROSIS SCREENING INITIAL (ONE-TIME) 06/13/2030 Postponed from [...] Procedure Name Priority Date/Time Associated Diagnosis Comments OUTSIDE IMAGING Routine 08/31/2025 2:39 PM EDT HEMOGLOBIN A1C Routine 08/23/2025 12:06 PM EDT Type 2 diabetes mellitus without complication, without long-term current use of insulin COMPREHENSIVE METABOLIC PANEL Routine 08/23/2025 12:06 PM EDT Type 2 diabetes mellitus without complication, without long-term current use of insulin White coat syndrome with diagnosis of hypertension CBC Routine 08/23/2025 12:05 PM EDT Type 2 diabetes mellitus without complication, without long-term current use of insulin White coat syndrome with diagnosis of hypertension XR HIPS BILATERAL 1-2 VIEWS Routine 07/31/2025 2:23 PM EDT Pain HM DIABETES EYE EXAM FOR RESULT ENTRY ONLY [...] Recently Relevant to Health Maintenance Results * Outside Imaging Report Only (08/31/2025 2:39 PM EDT) Historical Provider MD GEE XR CHEST Final Res ult * Hemoglobin A1c (08/23/2025 12:06 PM EDT) Only the most recent of2 resultswithin the time period is included. Blood Hung Merchant [facility] LAB BLOOD ORDERABLES Final Result Performing Organization Address [facility] Co de Phone Number [address] [address] * Comprehensive metabolic panel (08/23/2025 12:06 PM EDT) Only the most recent of2 resultswithin the time period is included. Blood Hung Merchant [facility] LAB BLOOD ORDERABLES Final Result Performing Organization Address City/[facility]/ZIP Co de Phone Number [address] [address] * CBC (08/23/2025 12:05 PM EDT) Blood us Hung Merchant CNP LAB BLOOD ORDERABLES Final Result Performing Organization Address City/[facility]/ZIP Co de Phone Number [address] [address] * XR HIPS BILATERAL 1-2 VIEWS (07/31/2025 2:23 PM EDT) Narrative SYSTEMGENERATED, DOCUMENTATION - 07/31/2025 2:23 PM EDT This image report has been auto-finalized and has not been read by a Radiologist. Interpretation has been included in the provider encounter note for this date of service. us Ana Kirkpatrick MD IMG XR PELVIS Final Res ult * DIABETES EYE EXAM FOR RESULT ENTRY ONLY (06/23/2025 4:49 PM EDT) us Historical Provider HEALTH MAINTENANCE Edited Result - Final * Hepatitis C antibody, qualitative (10/24/2020 8:17 AM EST) HCV NON-REACTIV E NON-REACTI VE [facility] Blood 10/24/2020 8:17 AM EST 10/24/2020 8:21 AM EST us Vignesh Serrano MD LAB BLOOD ORDERABLES Final Resu lt Performing Organization Address [facility]/ZIP Co de Phone Number [address] [address] from Last 3 Months or Most Recently Relevant to Health Maintenance Insurance [employer] RE[employer] Care Teams Margin Clerk Relationship Specialty Start Date End Date Hung Merchant CNP [address] [facility] [place] [address] PCP - General Nurse Practitioner 05/11/24 Pcp, Unknown 11/05/17 Mer Sellers MD [address] [place] [address] Medical Oncology 04/14/23 Additional Source Comments The information contained in this document represents components of the legal health record. It is not the complete legal health record.[facility]
--- OUTSIDE RECORDS SUMMARY | 2025-08-31 15:42 | XMS_ITS | Data Portability ---
Author Organization [facility], [employer] Address [address] [place] [id number] Care Team Providers Care Swim Coach Name Role Phone YVONNE RANGEL Primary Care Provider Unavailabl e Assessment Encounter Date Assessment Date Assessment LastModified by Organization Details LastModified Time 07/29/2022 07/29/2022 45 minutes spent on clinical encounter including review of history and documentation on date of visit. [email or web address] Not available 07/29/2022 12:04:58 Plan of Treatment Reminders Order Date Submit Date Provider Last Modified By Organization Details Last Modified Time Details Appointments None recorded. Lab gamma-gluta myl transferase (ggt), serum 2021 [facility], [address] [place], [address], 10:44:19 TSH, serum or plasma 2021 [facility], [address] [place], [address], 10:44:20 vitamin D, 25-hydroxy, total, serum 2021 [facility], [address] [place], [address], 10:44:19 lipid panel, serum 2021 [facility], [address] [place], [address], 10:44:19 CMP, serum or plasma 2021 [facility], [address] [place], [address], 10:44:20 uric acid, serum or plasma 2021 [facility], [address], [place], [address], 20:09:27 HbA1c (hemoglobin A1c), blood 2021 [facility], [address], [place], [address], 19:54:59 lipid panel, serum 2021 [facility], [address], [place], [address], 20:09:26 CBC w/ auto diff 2021 [facility], [address], [place], [address], 19:26:37 ferritin, serum or plasma 2021 [facility], [address], [place], [address], 20:12:03 CMP, serum or plasma 2021 [facility], [address], [place], [address], 20:09:23 Referral None recorded. Procedures None recorded. Surgeries None recorded. Imaging MRI, brain, w/wo contrast - Double vision, unilateral COFFEY. Recent surgical revision of adenocarcin tracy. Concern form jannet/tumor. 2021 [facility] ([facility]), [address] [facility], [place], [address], 09:35:42 XR, foot, 3 or more view - Log fell on R foot - edema, erythema forefoot. Ecchymosis resolving. r/o fracure. Fracture vs gouty arthritis R great toe. 2021 [facility] ([facility]), [address], [place], [address], 14:13:45 Medication Orders lisinopril 20 mg tablet 2021 [id number], [address], [place], [place], [id number], 12:50:47 hydrochloro thiazide 25 mg tablet 2021 [id number], [address], [place], [place], [id number], 12:50:01 colchicine 0.6 mg tablet 2021 [id number], [address], [place], [place], [id number], 09:47:48 Patient TargetsNo targets recorded. Patient InstructionsNo instructions recorded. Reason for Referral None Reported. Results Created Date Observation Date Name Description Value Unit Range Abnormal Flag Note LastModifiedBy Organization Detail LastModifiedTime 07/29/2007/29/2022 COMPL ETE CBC WITH DIFF WBC 7.8 K/mm3 (4.0-1 1.0) Not Available [facility] (Centralized Electronic Ordering - All Locations) Patient Can Go To The Location Of Their Choice, 07/29/2022 19:26:37 07/29/2007/29/2022 COMPL ETE CBC WITH DIFF RBC 4.56 M/mm3 (4.20- 5.40) Not Available [facility] (Centralized Electronic Ordering - All Locations) Patient Can Go To The Location Of Their Choice, 07/29/2022 19:26:37 07/29/2007/29/2022 COMPL ETE CBC WITH DIFF HGB 11.8 gm/dL (11.7- 15.5) Not Available [facility] (Centralized Electronic Ordering - All Locations) Patient Can Go To The Location Of Their Choice, 07/29/2022 19:26:37 07/29/2007/29/2022 COMPL ETE CBC WITH DIFF HCT 37.8 % (35.7- 45.8) Not Available [facility] (Centralized Electronic Ordering - All Locations) Patient Can Go To The Location Of Their Choice, 07/29/2022 19:26:37 07/29/2007/29/2022 COMPL ETE CBC WITH DIFF MCV 82.9 fL (80.0- 100.0) Not Available [facility] (Centralized Electronic Ordering - All Locations) Patient Can Go To The Location Of Their Choice, 07/29/2022 19:26:37 07/29/2007/29/2022 COMPL ETE CBC WITH DIFF MCH 25.9 pg (27.0- 34.0) low Not Available [facility] (Centralized Electronic Ordering - All Locations) Patient Can Go To The Location Of Their Choice, 07/29/2022 19:26:37 07/29/2007/29/2022 COMPL ETE CBC WITH DIFF MCHC 31.2 g/dL (33.0- 37.0) low Not Available [facility] (Centralized Electronic Ordering - All Locations) Patient Can Go To The Location Of Their Choice, 07/29/2022 19:26:37 07/29/2007/29/2022 COMPL ETE CBC WITH DIFF plt 296 K/mm3 (150-4 60) Not Available [facility] (Centralized Electronic Ordering - All Locations) Patient Can Go To The Location Of Their Choice, 07/29/2022 19:26:37 07/29/2007/29/2022 COMPL ETE CBC WITH DIFF RDW-SD 64.3 fL (<47.0 ) high Not Available [facility] (Centralized Electronic Ordering - All Locations) Patient Can Go To The Location Of Their Choice, 07/29/2022 19:26:37 07/29/2007/29/2022 COMPL ETE CBC WITH DIFF MPV 9.2 fL (9.4-1 2.4) low Not Available [facility] (Centralized Electronic Ordering - All Locations) Patient Can Go To The Location Of Their Choice, 07/29/2022 19:26:37 07/29/2007/29/2022 COMPL ETE CBC WITH DIFF automated NRBC 0.0 #/100 _WBC' s Not Available [facility] (Centralized Electronic Ordering - All Locations) Patient Can Go To The Location Of Their Choice, 07/29/2022 19:26:37 07/29/2007/29/2022 COMPL ETE CBC WITH DIFF abs. NRBC 0.0 K/mm3 Not Available [facility] (Centralized Electronic Ordering - All Locations) Patient Can Go To The Location Of Their Choice, 07/29/2022 19:26:37 07/29/2007/29/2022 COMPL ETE CBC WITH DIFF neut # 3.7 K/mm3 (1.3-7 .0) Not Available [facility] (Centralized Electronic Ordering - All Locations) Patient Can Go To The Location Of Their Choice, 07/29/2022 19:26:07/29/2007/29/2022 COMPL ETE CBC WITH DIFF lymph # 3.0 K/mm3 (0.8-3 .1) Not Available [facility] (Centralized Electronic Ordering - All Locations) Patient Can Go To The Location Of Their Choice, 07/29/2022 19:26:37 07/29/2007/29/2022 COMPL ETE CBC WITH DIFF mono# 0.5 K/mm3 (0.4-0 .9) Not Available [facility] (Centralized Electronic Ordering - All Locations) Patient Can Go To The Location Of Their Choice, 07/29/2022 19:26:37 07/29/2007/29/2022 COMPL ETE CBC WITH DIFF eo # 0.6 K/mm3 (0.0-0 .4) high Not Available [facility] (Centralized Electronic Ordering - All Locations) Patient Can Go To The Location Of Their Choice, 07/29/2022 19:26:37 07/29/2007/29/2022 COMPL ETE CBC WITH DIFF baso # 0.0 K/mm3 (0.0-0 .1) Not Available [facility] (Centralized Electronic Ordering - All Locations) Patient Can Go To The Location Of Their Choice, 07/29/2022 19:26:37 07/29/2007/29/2022 COMPL ETE CBC WITH DIFF abs. imm gran 0.0 K/mm3 Not Available [facility] (Centralized [facility] Ordering - All Locations) Patient Can Go To The Location Of Their Choice, 07/29/2022 19:26:37 07/29/2007/29/2022 COMPL ETE CBC WITH DIFF neut 47.0 % (44-76 ) Not Available [facility] (Centralized Electronic Ordering - All Locations) Patient Can Go To The Location Of Their Choice, 07/29/2022 19:26:37 07/29/2007/29/2022 COMPL ETE CBC WITH DIFF lymph 38.8 % (15-43 ) Not Available [facility] (Centralized Electronic Ordering - All Locations) Patient Can Go To The Location Of Their Choice, 07/29/2022 19:26:37 07/29/2007/29/2022 COMPL ETE CBC WITH DIFF monocyte 6.4 % (4.5-1 0.5) Not Available [facility] (Centralized Electronic Ordering - All Locations) Patient Can Go To The Location Of Their Choice, 07/29/2022 19:26:37 07/29/2007/29/2022 COMPL ETE CBC WITH DIFF eo 7.0 % (0-6) high Not Available [facility] (Centralized Electronic Ordering - All Locations) Patient Can Go To The Location Of Their Choice, 07/29/2022 19:26:37 07/29/2007/29/2022 COMPL ETE CBC WITH DIFF baso 0.5 % (0-2) Not Available [facility] (Centralized Electronic Ordering - All Locations) Patient Can Go To The Location Of Their Choice, 07/29/2022 19:26:37 07/29/2007/29/2022 COMPL ETE CBC WITH DIFF imm gran 0.3 % Not Available [facility] (Centralized Electronic Ordering - All Locations) Patient Can Go To The Location Of Their Choice, 07/29/2022 19:26:37 07/29/2007/29/2022 HEMOG LOBIN A1C hemoglobin A1C 5.6 % (4.0-5 .6) MONIT ORING : In known diabe tic patie nts, hemog lobin A1c targe ts shoul d be discu ssed with healt h care provi bubba. DIAGN OSTIC USE: The Ameri can Diabe faustino Assoc iatio n (ADA) and the World Healt h Organ izati on (WHO) recom mend the use of HbA1c to diagn ose diabe faustino using a thres hold of 6.5%. Patie nts who have an HbA1c betwe en 5.7% and 6.4% are consi dered at incre ased risk for devel oping diabe faustino in the futur e. CAUTI ON: False ly low HbA1c resul ts may be obser skinny in patie nts with hemol ytic anemi a, homoz ygous forms of abnor mal hemog lobin (e.g. SS, CC, SC), pregn jeff, recen t blood loss or hemog lobin F great er than 7%. Fruct osami ne may be used as an alter nkechi test in these cases . REFER ENCE: ADA: Stand ards of Medic al Care in Diabe faustino 2019, The Journ al of Clini williams and Appli ed Resea rch and Educa tion Volum e 43, Suppl ement 1 Not Available [facility] (Centralized Electronic Ordering - All Locations) Patient Can Go To The Location Of Their Choice, 07/29/2022 19:54:59 07/29/2007/29/2022 COMPR EHENS SERGE METAB OLIC PANL glucose 93 mg/dL (70-99 ) Not Available [facility] (Centralized Electronic Ordering - All Locations) Patient Can Go To The Location Of Their Choice, 07/29/2022 20:09:23 07/29/2007/29/2022 COMPR EHENS SERGE METAB OLIC PANL BUN 29 mg/dL (8-23) high Not Available [facility] (Centralized Electronic Ordering - All Locations) Patient Can Go To The Location Of Their Choice, 07/29/2022 20:09:23 07/29/2007/29/2022 COMPR EHENS SERGE METAB OLIC PANL creatinine 0.8 mg/dL (0.5-1 .0) Not Available [facility] (Centralized Electronic Ordering - All Locations) Patient Can Go To The Location Of Their Choice, 07/29/2022 20:09:07/29/2007/29/2022 COMPR EHENS SERGE METAB OLIC PANL sodium 142 mmol/ L (133-1 45) Not Available [facility] (Centralized Electronic Ordering - All Locations) Patient Can Go To The Location Of Their Choice, 07/29/2022 20:09:07/29/2007/29/2022 COMPR EHENS SERGE METAB OLIC PANL potassium 3.9 mmol/ L (3.6-5 .2) Not Available [facility] (Centralized Electronic Ordering - All Locations) Patient Can Go To The Location Of Their Choice, 07/29/2022 20:09:07/29/2007/29/2022 COMPR EHENS SERGE METAB OLIC PANL chloride 101 mmol/ L (98-10 7) Not Available [facility] (Centralized Electronic Ordering - All Locations) Patient Can Go To The Location Of Their Choice, 07/29/2022 20::07/29/2007/29/2022 COMPR EHENS SERGE METAB OLIC PANL bicarbonate 30 mmol/ L (22-29 ) high Not Available [facility] (Centralized Electronic Ordering - All Locations) Patient Can Go To The Location Of Their Choice, 07/29/2022 20::07/29/2007/29/2022 COMPR EHENS SERGE METAB OLIC PANL anion gap 11 (4-17) Not Available [facility] (Centralized Electronic Ordering - All Locations) Patient Can Go To The Location Of Their Choice, 07/29/2022 20:09:07/29/2007/29/2022 COMPR EHENS SERGE METAB OLIC PANL albumin 4.6 gm/dL (3.4-4 .8) Not Available [facility] (Centralized Electronic Ordering - All Locations) Patient Can Go To The Location Of Their Choice, 07/29/2022 20:09:07/29/2007/29/2022 COMPR EHENS SERGE METAB OLIC PANL calcium 10.2 mg/dL (8.6-1 0.5) Not Available [facility] (Centralized Electronic Ordering - All Locations) Patient Can Go To The Location Of Their Choice, 07/29/2022 20:09:07/29/2007/2907/29/2022 COMPR EHENS SERGE METAB OLIC PANL bilirubin,to julián 0.2 mg/dL (0-1.2 ) Not Available [facility] (Centralized Electronic Ordering - All Locations) Patient Can Go To The Location Of Their Choice, 07/29/2022 20:09:23 07/29/20 22 07/29/2022 COMPR EHENS SERGE METAB OLIC PANL total protein 7.0 gm/dL (6.2-8 .2) Not Available [facility] (Centralized Electronic Ordering - All Locations) Patient Can Go To The Location Of Their Choice, 07/29/2022 20:09:07/29/2007/29/2022 COMPR EHENS SERGE METAB OLIC PANL Ag ratio 1.9 Not Available [facility] (Centralized Electronic Ordering - All Locations) Patient Can Go To The Location Of Their Choice, 07/29/2022 20:09:07/29/2007/29/2022 COMPR EHENS SERGE METAB OLIC PANL AST 14 U/L (0-32) Not Available [facility] (Centralized Electronic Ordering - All Locations) Patient Can Go To The Location Of Their Choice, 07/29/2022 20:09:23 07/29/2007/29/2022 COMPR EHENS SERGE METAB OLIC PANL alk phos 138 U/L (35-10 4) high Not Available [facility] (Centralized Electronic Ordering - All Locations) Patient Can Go To The Location Of Their Choice, 07/29/2022 20:09:23 07/29/2007/29/2022 COMPR EHENS SERGE METAB OLIC PANL ALT 12 U/L (0-33) Not Available [facility] (Centralized Electronic Ordering - All Locations) Patient Can Go To The Location Of Their Choice, 07/29/2022 20:09:07/29/2007/29/2022 COMPR EHENS SERGE METAB OLIC PANL estimated GFR creatinine 75 mL/mi n/1.7 3_M2 Creat inine based estim ated glome rular filtr ation (eGFR ) in adult s is calcu lated using the Natio nal Kidne y Found ation recom rebeca d 2020 CKD-E PI equat ion. Estim ates GFR from serum creat inine , age and sex. Not Available [facility] (Centralized Electronic Ordering - All Locations) Patient Can Go To The Location Of Their Choice, 07/29/2022 20:09:07/29/2007/29/2022 LIPID PANEL cholesterol, total 230 mg/dL (<200) high Not Available [facility] ([facility] Ordering - All Locations) Patient Can Go To The Location Of Their Choice, 07/29/2022 20::07/29/2007/29/2022 LIPID PANEL triglyceride 187 mg/dL (<150) high Not Available [facility] ([facility] - [facility] Locations) Patient Can Go To The Location Of Their Choice, 07/29/2022 20::07/29/2007/29/2022 LIPID PANEL HDL chol 59 mg/dL (>39) Not Available [facility] (Centralized Electronic Ordering - All Locations) Patient Can Go To The Location Of Their Choice, 07/29/2022 20:09:07/29/2007/29/2022 LIPID PANEL LDL cholesterol, calculated 134 mg/dL (0-130 ) high Not Available [facility] (Centralized Electronic Ordering - All Locations) Patient Can Go To The Location Of Their Choice, 07/29/2022 20::07/29/2007/29/2022 LIPID PANEL non HDL cholesterol (calc) 171 mg/dL (<160) high Not Available [facility] ([facility] Ordering - All Locations) Patient Can Go To The Location Of Their Choice, 07/29/2022 20::07/29/2007/29/2022 URIC ACID uric acid 6.7 mg/dL (1.6-7 .6) Not Available [facility] (Centralized Electronic Ordering - All Locations) Patient Can Go To The Location Of Their Choice, 07/29/2022 20::07/29/2007/29/2022 CALOS TIN ferritin 25 NG/mL (14-28 3) Not Available [facility] (Centralized Electronic Ordering - All Locations) Patient Can Go To The Location Of Their Choice, 07/29/2022 20:12:03 07/29/20 22 07/29/2022 XR, foot, 3 or more view Foot Min 3 Views Right, 3 views Reason : edema, erythe ma, trauma COMPAR NEL: None. FINDIN GS: No fractu res or bone lesion s. No arthri tic change s. Normal soft tissue s. IMPRES MIGUEL: Normal . WSN: [id number] Orderi ng Physic daron: Yvonne Choi Dictat ed By: Sana Mason MD Dictat ed Date/T horacio: 2:10 pm Review ed By: Sana Mason MD Signed By: Sana Mason MD Signed Date/T horacio: 2:10 pm Transc ribed By: KELSY Transc ribed Date/T horacio: 2:09 pm Patien t Class: 5 [email or web address] [facility] ([facility]) [address] [place] [address], [address], 07/29/2022 14:47:29 Result Notes Documentation Provider Name and Address Organization Details Recorded Time Xr, Foot, 3 Or More View : Foot Min 3 Views Right, 3 views Reason: edema, erythema, trauma COMPARISON: None. FINDINGS: No fractures or bone lesions. No arthritic changes. Normal soft tissues. IMPRESSION: Normal. WSN: [id number] Ordering Physician: Yvonne Rangel Dictated By: Tristen Ignacio MD Dictated Date/Time: 07/29/22 2:10 pm Reviewed By: Tristen Ignacio MD Signed By: Tristen Ignacio MD Signed Date/Time: 07/29/22 2:10 pm Transcribed By: KELSY Transcribed Date/Time: 07/29/22 2:09 pm Patient Class: 5 Yvonne Rangel null, [place] [facility] 07/29/2022 14:47:29 Problems Name Problem SNOMED Code Status Onset Date Resolution Date Notes Provider Name and Address Organization Details Recorded Time Anemia 511007821 Active 2021 Yvonne Rangel null, [place] [facility] 11:32:16 Gout 95554061 Active 2021 Yvonne Rangel null, [place] [facility] 2 11:41:36 Primary adenocarcin tracy of colon 3362571131726 Active [facility] [place] [facility] 2 11:44:14 Electrolyte imbalance 993742569 Active 2021 [facility], [place] [facility] 2 11:44:52 Female urinary stress incontinenc e 29927784 Active 2021 Yvonne Claire null, [place] - [facility] 2 10:15:29 Alkaline phosphatase above reference range 032994901 Active 2021 Yvonne Claire null, [place] - [facility] 2 10:40:07 Hyperlipide jacqui 34155623 Active 2021 Yvonne Claire null, [place] - [facility] 2 10:42:21 Problem Notes None recorded. Procedures Surgical History Date Name Laterality Status Provider Name and Address Organization Details Recorded Time Colonoscopy completed Reshma Reyes [place] - [facility] 08/25/2022 11:45:18 Imaging Results None recorded. Procedure Notes None recorded. Medical Equipment None Reported. Allergies Allergen ID Allergen Name Allergen Category Reaction Reaction Severity Criticality Documentation Date Start Date Code Code System Note Provider Name and Address Organization Details Recorded Time 2324 Substance with sulfonami de structure and antibacte rial mechanism of action (substanc e) medicatio n Not available Not available Not available 07/29/2022 81552 8003 SNOMED Reshma Reyes [facility], [place] - [facility] 2 10:45:46 Medications Name Sig Start Date Stop Date Status Note LastModified by Organization Details LastModified Time atorvastati n 40 mg tablet Take 1 tablet every day by oral route. active Not Available Not Available No t Available lisinopril 20 mg tablet 1 tablet daily 2021 active Not Available Not Available Not Avai lable metronidazo le 500 mg tablet THE NIGHT BEFORE SURGERY TAKE 4 TABLETS AT 7PM AND 4 TABLETS AT 11PM 08/26 completed Not Available Not Available Not Available sulfamethox azole 800 mg-trimetho prim 160 mg tablet TAKE 1 TABLET BY MOUTH EVERY 12 HOURS WITH MEALS FOR 7 DAYS 07/29 completed Not Available Not Available Not Available tramadol 50 mg tablet TAKE 1 TABLET BY MOUTH EVERY 4 HOURS NEEDED FOR PAIN 08/26 completed Not Available Not Available Not Available pantoprazol e 40 mg tablet,romain yed release TAKE 1 TABLET BY MOUTH DAILY 08/26 completed Not Available Not Available Not Available lisinopril 10 mg tablet TAKE 1 TABLET BY MOUTH EVERY DAY IN THE MORNING 09/18 completed Not Available Not Available Not Available hydrochloro thiazide 25 mg tablet 1 tablet daily 2021 active Not Available Not Available Not Avai lable neomycin 500 mg tablet THE NIGHT BEFORE SURGERY TAKE 4 TABLETS AT 7PM AND 4 TABLETS AT 11PM 08/26 completed Not Available Not Available Not Available colchicine 0.6 mg tablet TAKE 2 TABLETS BY MOUTH ONCE THEN 1 TABLET BY MOUTH 1 HOUR LATER 08/26 completed Not Available Not Available Not Available dicyclomine 10 mg capsule TAKE 2 CAPSULES BY MOUTH FOUR TIMES DAILY FOR 14 DAYS 07/29 completed Not Available Not Available Not Available amoxicillin 875 mg-potassiu m clavulanate 125 mg tablet TAKE 1 TABLET BY MOUTH EVERY 12 HOURS FOR 5 DAYS 07/29 completed Not Available Not Available Not Available hydrocodone 5 mg-ibuprofe n 200 mg tablet TAKE 1 TABLET BY MOUTH DAILY AT BEDTIME FOR 7 DAYS NEEDED FOR PAIN 07/29 completed Not Available Not Available Not Available atorvastati n 08/26 completed Not Available Not Available Not Available hydrochloro thiazide 12.5 mg tablet TAKE 1 TABLET BY MOUTH EVERY DAY IN THE MORNING 09/18 completed Not Available Not Available Not Available peg 3350-electr olytes 236 gram-22.74 gram-6.74 gram-5.86 gram solution 08/26 completed Not Available Not Available Not Available Vitals Date Recorded Body weight Body mass index (BMI) Body height Oxygen saturation Oxygen saturation in Arterial blood by Pulse oximetry Heart rate Systolic And Diastolic Provider Name and Address Organization Details Last Updated DateTime 2 07482.4 6 g 30.9 kg/m2 165.1 cm 97 % 97 % 75 /min 134/68 mm[Hg] Reshma Reyes [place] - [facility] 2 10:45:19 Date Recorded Body height Body mass index (BMI) Body weight Heart rate Oxygen saturation Oxygen saturation in Arterial blood by Pulse oximetry Systolic And Diastolic Provider Name and Address Organization Details Last Updated DateTime 2 165.1 cm 31.5 kg/m2 02083.9 6 g 76 /min 97 % 97 % 142/76 mm[Hg] Reshma Reyes [place] - [facility] 2 09:44:09 Date Recorded Body height Body mass index (BMI) Body weight Oxygen saturation Oxygen saturation in Arterial blood by Pulse oximetry Heart rate Systolic And Diastolic Provider Name and Address Organization Details Last Updated DateTime 2 165.1 cm 32 kg/m2 95679.4 4 g 98 % 98 % 84 /min 132/74 mm[Hg] Reshma Reyes [facility] 2 10:37:10 Social History None recorded. Functional Status None recorded. Mental Status None recorded. Family History Nothing Reported. Medical History No medical history recorded. Gynecological History Statement/Question Response Colonoscopy 05/19/2022 Obstetrics History GPAL:G 0 P 0 0 0 0 Immunizations Vaccine Type Date Status Note Provider Nam e and Address Organization Details Recorded Time zoster live 08/03/2017 completed Reshmavinod Reyes null, [place] - [facility] 08/25/2022 11:40:34 Influenza, high-dose, trivalent, PF 09/06/2018 completed Reshma Re[place] null, [place] [facility] 08/25/2022 11:40:34 COVID-19 vaccine, vector-nr, rS-Ad26, PF, 0.5 mL 03/01/2021 completed Reshma [place], [place] [facility] 08/25/2022 11:40:34 Influenza, adjuvanted, trivalent, PF 09/01/2017 completed Reshma Amy null, [place] [facility] 08/25/2022 11:40:34 influenza, unspecified formulation 08/03/2017 completed Reshma Fiske null[place] [facility] 08/25/2022 11:40:34 Influenza, adjuvanted, quadrivalent, PF 08/04/2022 completed Reshma Fiske null[place] [facility] 08/26/2022 09:40:35 Tdap 02/27/2016 completed Reshma Re[place] null, [place] [facility] 07/29/2022 10:52:20 Past Encounters Encounter ID Performer Location Encounter Start Date Encounter Closed Date Diagnosis/Indication Diagnosis SNOMED-CT Code Diagnosis ICD10 Code Diagnosis IMO Codes Diagnosis Note [id number] ЮЛИЯ Benitez Main Office [address] [place] [address],[address] [place] [address] 07/29/2022 10:35:17 07/29/2022 11:54:45 Pain in right foot 1926914875 11133 M79.671 R foot injury, will investigat e with Xray - also history of gout. R great toe with marked erythema, no warmth, mild edema. Will call with results and plan Gout 97433353 M10.9 Uses colchicine prn - requested refill. Anemia 153689295 D64.9 Has been on liquid iron in the past - anemia may have resolved as it may be related to blood loss from bleeding tumor/surg leon. Will eval today. Electrolyte imbalance 10 3554802 E87.8 History of hypokalemi a - will check CMP. Also hx of CKD. Primary adenocarcinoma of colon 7759855729 [address] Garcia as planned. Diabetes m ellitus screening 550007575 Z13.1 [id number] Yvonne Rangel Main Office [address] [place] [address] [address] [place] [address] 08/26/2022 09:38:16 08/26/2022 10:35:05 Diplopia 63436977 H53.2 Will get MRI - will work on getting this relatively quickly. Has appt with opthal today as well. No other neuro deficit, but does have unilateral COFFEY. Defers all other work ups at this time. Alkaline p hosphatase above reference range 771583534 R74.8 Would like to get further labs for this, but Roseanne defers at this time. Will FU with this next appt. Hyperlipidemia 99929950 E78.5 Adult heal th examination 231802506 Z00.00 Will discuss labs, mammo, dexa, PNA vaccine, and shingles vaccine next appt. She defers at this time due to concern for diploplia and headache. [id number] Mago Jama NP Main Office [address] [facility],[address] [place] [address] 09/18/2022 10:27:30 09/18/2022 11:05:36 Hyperlipidemia 22018789 E78.5 Hypertensive disorder 38 454445 I10 Diplopia 03176621 H53.2 I reviewed pt's MRI and suggest we obtain a repeat study utilizing cavernous sinus protocol per radiology recommenda tions. I also recommend a consult with neuro surgery. She asks if this would be through [facility], or in [place] , and I stated no. She would not like to pursue any care through [facility] but would consider [facility], but also states I will not travel . She defers any further imaging or workup until December . She states symptoms are resolving and doesn't feel that her imaging results are worrisome. I asked her to call me if any symptoms change or worsen. Health Concerns Section Related Observation LastModified by Organization Detai ls LastModified Time None Recorded Concern Status LastModified by Organization Details LastModified Time None Recorded Advance Directives Directive None Recorded Payers Insurance Date Sequence Insurance Name Policy Number Policy Cosme Covered Member ID Cosme Member ID Guarantor Name 09/15/2022 1 [facility] MEDICARE [facility]VANTAGE PLAN (MEDICARE REPLACEMENT HMO) [id number] 1 Roseanne Ponce [id number] Roseanne Ponce Notes Date Note Type Note Provider Name and Address Organization Details Recorded Time 07/29/2022 text/html New patient appt - 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 Recovered well form surgery which was successful. Currently in active surveillance. To have a colonoscopy in one year (next summer) and then every 3 years. Wishes to be followed by Dr. Garcia and Nikunj. Wears glasses and has recently had a change in vision - no dizziness, gait disturbance, numbness, tremor, confusion or the like. Had complete excision of tumor. No lyphovascular invasion or perineural invasion. 12 lymph nodes were examined and were neg for carcinoma. Will check labs. She will consult Dr. Andino and I will discuss with her again at her next appt. Log fell on foot two weeks ago - pain, edema, ecchymosis of R foot resolving, but still present. Ambulatory without distress. Erythema present on R great toe. Yvonne gonzalez MA - [facility] 07/29/2022 12:28:29 08/26/2022 text/html PPE - Last mammo many years ago. Defers dexa scan. 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 Had eye exam and new glasses without improvement. Denies balance disturbance, denies dizziness, unilateral COFFEY L side x several weeks. Will get MRI due to recent cancer hx. Bump in alk phos over past two months, but could be r/t post op cholestasis - will get GGT, CMP. Ca+, Vit D, TSH - would like to defer this for now. More concerned about her double vision and COFFEY. LDL high, but was off her statin - she started taking it again 3-4 weeks ago. Yvonne gonzalez, LESLY [facility] 08/26/2022 10:49:45 09/18/2022 text/html ROS as noted in the HPI She is here to follow up on MRI/headaches.She and I are meeting for the first time. At her last visit, she complained of unilateral headache and diplopia. She was seen by opthamology and her glasses/prisms were adjusted and issue is improved. Left sided unilateral headaches are nearly gone.MRI shows1) Abnormal enhancing soft tissue is seen in the posterior aspect of the right cavernous sinus bulging into the prepontine cistern. This may represent a meningioma though a metastatic lesion is difficult to exclude. Asmmetric venous plexus is considered much less likely. MRI of the brain w + w/o contrast UTILIZING CAVERNOUS SINUS PROTOCOL would be helpful to better characterize the lesion.2) 6 mm hypoenhancing lesion within the pituitary gland may represent a microadenoma or perhaps Rathke's cleft cyst. This should be correlated with patient's endocrinologic function.3) Scattered foci of t2 signal abnormality in the tentorial white matter are not unusual for the patient's age, most likely related to mild chronic microvascular ischemia change. Still having intermittent but less severe left sided headches. Mago Jama, PHLEBOTOMY LAB ASSISTANT [address] [facility], [facility] [address], [place], [address], [place] LESLY - [facility] 09/18/2022 13:40:37 OBGyn Episode No OBEpisode recorded.
--- OUTSIDE RECORDS SUMMARY | 2025-08-31 15:42 | XMS_ITS | Encounter Summary ---
Author Organization [facility] Address [address] [place] [address] [place] [address] Phone Care Team Providers Care Tie Tape Machine Operator Name Role Phone Pcp, Unknown Unavailable Unavailable Duke Lopes DO Primary Care Provider [phone] Mer Sellers MD Unavailable [phone] Hung Merchant HIGH SCHOOL MUSIC DIRECTOR Primary Care Provider [phone] Encounter Details Date Type Department Care Team (Late st Contact Info) Description 03/01/2024 Procedure Pass [facility], Ct Scan - [address] [address] Social History Tobacco Use Types Packs/Day Years [...] st Contact Info) Description 05/23/2025 Procedure Pass [facility], Mammography- [facility] [address] [place] [address] 09/19/2025 9:30 AM EST Procedure visit [facility] Orthopedics & Sports Medicine [address] [place] [address] Ana Kirkpatrick MD [address] [place] [address] Orthopedics & Sports Medicine, [facility] [place] [address] 11/24/2025 10:00 AM EST Office Visit [facility] at [address] [address] Mer Sellers MD [address] [place] [address] 11/29/2025 4:00 PM EST Office Visit [address] [address] Hung Merchant, HIGH SCHOOL MUSIC DIRECTOR [address] [place] [address] 12/06/2025 8:15 AM EST Appointment [address] [address] Hung Merchant, HIGH SCHOOL MUSIC DIRECTOR [address] [place] [address] 01/05/2026 10:45 AM EST Appointment [address] [address] Mer Sellers MD [address] [place] [address] documented as of this encounter Visit Diagnoses Not on filedocumented in this encounter Additional Health Concerns Assessment Noted Time PHQ-2 Depression Total Score: 0 05/31/20 21 12:36 PM EDT documented as of this encounter Care Teams Tie Tape Machine Operator Relationship Specialty Start Date End Date Duke Lopes DO [address] [place] [phone] PCP - General Internal Medicine 03/05/23 05/10/24 Hung Merchant CNP [address] [place] [address] [email or web address] PCP - General Nurse Practitioner 05/11/24 Pcp, Unknown 11/05/17 Mer Sellers MD 30 [place] [address] Medical Oncology 04/14/23 documented as of this encounter Additional Source Comments The information contained in this document represents components of the legal health record. It is not the complete legal health record.[facility]
--- OUTSIDE RECORDS SUMMARY | 2025-08-31 15:42 | XMS_ITS | Encounter Summary ---
Author Organization [facility] Address [address] [place] [address] [place] [address] Phone Care Team Providers Care Instructional Consultant Name Role Phone Pcp, Unknown Unavailable Unavailable Duke Lopes DO Primary Care Provider [phone] Mer Sellers MD Unavailable [phone] Hung Merchant SAWDUST DRIER Primary Care Provider [phone] Encounter Details Date Type Department Care Team (Late st Contact Info) Description 03/01/2024 Procedure Pass [facility], Ct Scan - [address] [address] Social History Tobacco Use Types Packs/Day Years [...] st Contact Info) Description 05/23/2025 Procedure Pass [facility], Mammography- [facility] [address] [place] [address] 09/19/2025 9:30 AM EST Procedure visit [facility] Orthopedics & Sports Medicine [address] [place] [address] Ana Kirkpatrick MD [address] [place] [address] Orthopedics & Sports Medicine, [place] [address] 11/24/2025 10:00 AM EST Office Visit [facility] at [address] [address] Mer Sellers MD [address] [place] [address] 11/29/2025 4:00 PM EST Office Visit [address] [address] Hung Merchant, SAWDUST DRIER [address] [place] [address] 12/06/2025 8:15 AM EST Appointment [address] [address] Hung Merchant, SAWDUST DRIER [address] [place] [address] 01/05/2026 10:45 AM EST Appointment [address] [address] Mer Sellers MD [address] [place] [address] documented as of this encounter Visit Diagnoses Not on filedocumented in this encounter Additional Health Concerns Assessment Noted Time PHQ-2 Depression Total Score: 0 05/31/20 21 12:36 PM EDT documented as of this encounter Care Teams Instructional Consultant Relationship Specialty Start Date End Date Duke Lopes DO [address] [place] [phone] [email or web address] PCP - General Internal Medicine 03/05/23 05/10/24 Hung Merchant CNP [address] [place] [address] PCP - General Nurse Practitioner 05/11/24 Pcp, Unknown 11/05/17 Mer Sellers MD 30 [place] [address] Medical Oncology 04/14/23 documented as of this encounter Additional Source Comments The information contained in this document represents components of the legal health record. It is not the complete legal health record.[facility]
--- OUTSIDE RECORDS SUMMARY | 2025-08-31 15:42 | XMS_ITS | Encounter Summary ---
Author Organization [facility] Address [address] [place] [address] [place] [address] Phone Care Team Providers Care Gear Keeper Name Role Phone Pcp, Unknown Unavailable Unavailable Duke Lopes DO Primary Care Provider [phone] Mer Sellers MD Unavailable [phone] Hung Merchant CNP Primary Care Provider [phone] Encounter Details Date Type Department Care Team (Late st Contact Info) Description 05/01/2023 Procedure Pass [address] [address] Social History Tobacco Use Types Packs/Day Years [...] (Late st Contact Info) Description 05/23/[address] [address] 09/19/2025 9:30 AM EST Procedure visit [facility] Orthopedics & Sports Medicine [address] [place] [address] Ana Kirkpatrick MD [address] [place] [address] Orthopedics & Sports Medicine, [facility] [place] [address] 11/24/2025 10:00 AM EST Office Visit [facility] at [address] [address] Mer Sellers MD [address] [place] [address] 11/29/2025 4:00 PM EST Office Visit [address] [address] Hung Merchant, PLATE KEEPER [address] [place] [address] 12/06/2025 8:15 AM EST Appointment [address] [address] Hung Merchant, PLATE KEEPER [address] [place] [address] 01/05/2026 10:45 AM EST Appointment [address] [address] Mer Sellers MD [address] [place] [address] documented as of this encounter Visit Diagnoses Not on filedocumented in this encounter Additional Health Concerns Assessment Noted Time PHQ-2 Depression Total Score: 0 05/31/20 21 12:36 PM EDT documented as of this encounter Care Teams Gear Keeper Relationship Specialty Start Date End Date Duke Lopes DO [address] [place] [address] [phone] [email or web address] PCP - General Internal Medicine 03/05/23 05/10/24 Hung Merchant CNP [address] [place] [address] PCP - General Nurse Practitioner 05/11/24 Pcp, Unknown 11/05/17 Mer Sellers MD 30 [place] [address] [email or web address] Medical Oncology 04/14/23 documented as of this encounter Additional Source Comments The information contained in this document represents components of the legal health record. It is not the complete legal health record.[facility]
--- OUTSIDE RECORDS SUMMARY | 2025-08-31 15:42 | XMS_ITS | Encounter Summary ---
Author Organization [facility] Address [address] [place] [address] [place] [address] Phone Care Team Providers Care Migration Specialist Name Role Phone Pcp, Unknown Unavailable Unavailable Duke Lopes DO Primary Care Provider [phone] Mer Sellers MD Unavailable [phone] Hung Merchant DENTAL HYGIENE TEACHER Primary Care Provider [phone] Encounter Details Date Type Department Care Team (Late st Contact Info) Description 05/01/2023 Procedure Pass [facility], Ct Scan - [address] [address] Social History Tobacco Use Types Packs/Day Years [...] st Contact Info) Description 05/23/2025 Procedure Pass [facility], Mammography- [address] [address] 09/19/2025 9:30 AM EST Procedure visit [facility] Orthopedics & Sports Medicine [address] [place] [address] Ana Kirkpatrick MD [address] [place] [address] Orthopedics & Sports Medicine, [facility] [place] [address] 11/24/2025 10:00 AM EST Office Visit [facility] at [address] [address] Mer Sellers MD [address] [place] [address] 11/29/2025 4:00 PM EST Office Visit [address] [address] Hung Merchant, DENTAL HYGIENE TEACHER [address] [place] [address] 12/06/2025 8:15 AM EST Appointment [address] [address] Hung Merchant, DENTAL HYGIENE TEACHER [address] [place] [address] 01/05/2026 10:45 AM EST Appointment [address] [address] Mer Sellers MD [address] [place] [address] documented as of this encounter Visit Diagnoses Not on filedocumented in this encounter Additional Health Concerns Assessment Noted Time PHQ-2 Depression Total Score: 0 05/31/20 21 12:36 PM EDT documented as of this encounter Care Teams Migration Specialist Relationship Specialty Start Date End Date Duke Lopes DO [address] [place] [phone] [email or web address] PCP - General Internal Medicine 03/05/23 05/10/24 Hung Merchant CNP [address] [place] [address] PCP - General Nurse Practitioner 05/11/24 Pcp, Unknown 11/05/17 Mer Sellers MD 30 [place] [address] Medical Oncology 04/14/23 documented as of this encounter Additional Source Comments The information contained in this document represents components of the legal health record. It is not the complete legal health record.[facility]
--- OUTSIDE RECORDS SUMMARY | 2025-08-31 15:42 | XMS_ITS | Encounter Summary ---
Author Organization [facility] Address [address] [place] [address] [place] [address] Phone Care Team Providers Care Box Inspector Name Role Phone Pcp, Unknown Unavailable Unavailable Duke Lopes DO Primary Care Provider [phone] Mer Sellers MD Unavailable [phone] Hung Merchant CLIENT SUCCESS MANAGER Primary Care Provider [phone] Encounter Details Date Type Department Care Team (Late st Contact Info) Description 05/01/2023 Procedure Pass [facility], Ct Scan - [address] [address] Social History Tobacco Use Types Packs/Day Years [...] st Contact Info) Description 05/23/2025 Procedure Pass [facility], Mammography- [address] [address] 09/19/2025 9:30 AM EST Procedure visit [facility] Orthopedics & Sports Medicine [address] [place] [address] Ana Kirkpatrick MD [address] [place] [address] Orthopedics & Sports Medicine, [place] [address] 11/24/2025 10:00 AM EST Office Visit [facility] at [address] [address] Mer Sellers MD [address] [place] [address] 11/29/2025 4:00 PM EST Office Visit [address] [address] Hung Merchant, CLIENT SUCCESS MANAGER [address] [place] [address] 12/06/2025 8:15 AM EST Appointment [address] [address] Hung Merchant, CLIENT SUCCESS MANAGER [address] [place] [address] 01/05/2026 10:45 AM EST Appointment [address] [address] Mer Sellers MD [address] [place] [address] documented as of this encounter Visit Diagnoses Not on filedocumented in this encounter Additional Health Concerns Assessment Noted Time PHQ-2 Depression Total Score: 0 05/31/20 21 12:36 PM EDT documented as of this encounter Care Teams Box Inspector Relationship Specialty Start Date End Date Duke Lopes DO [address] [place] [phone] [email or web address] PCP - General Internal Medicine 03/05/23 05/10/24 Hung Merchant CNP [address] [place] [address] [email or web address] PCP - General Nurse Practitioner 05/11/24 Pcp, Unknown 11/05/17 Mer Sellers MD 30 [place] [address] [email or web address] Medical Oncology 04/14/23 documented as of this encounter Additional Source Comments The information contained in this document represents components of the legal health record. It is not the complete legal health record.[facility]
--- OUTSIDE RECORDS SUMMARY | 2025-08-31 15:43 | XMS_ITS | Encounter Summary ---
Author Organization [facility] Address [address] [place] [address] Phone Care Team Providers Care Armament Installer Name Role Phone Pcp, Unknown Unavailable Unavailable Mer Sellers MD Unavailable [phone] Hung Merchant CNP Primary Care Provider [phone] Encounter Details Date Type Department Care Team (Late st Contact Info) Description 08/28/2025 Telephone [employer] [facility] [address] [place] [address] Hung Merchant, FLORENTINO [address] [place] [address] [email or web address] Social History Tobacco Use Types Packs/Day Years [...] as of this encounter Progress Notes * Hung Merchant CNP - 08/28/2025 5:38 PM EDT Spoke with patient. Reviewed recent labs. A1C at 6.2%. CBC/CMP normal. Is using Tramadol as needed for pain, is scheduled with Dr. Sales for bilateral hip injections. Advised to use Tramadol sparingly asneeded. Reports restarted Zetia a few weeks ago, had previously been prescribed- is not interested in repeating fasting at this time, last done 01/2025. 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 Advised to follow-up in office as needed documented in this encounter Plan of Treatment Upcoming Encounters Date Type Department Care Team (Late st Contact Info) Description 05/23/2025 Procedure Pass [address] [address] 09/19/2025 9:30 AM EST Procedure visit [facility] Orthopedics & Sports Medicine [address] [place] [address] Ana Kirkpatrick MD [address] [place] [address] Orthopedics & Sports Medicine, [facility] [place] [address] 11/24/2025 10:00 AM EST Office Visit [facility] at [address] [address] Mer Sellers MD [address] [place] [address] 11/29/2025 4:00 PM EST Office Visit [address] [address] Hung Merchant, GRADING SUPERVISOR [address] [place] [address] 12/06/2025 8:15 AM EST Appointment [address] [address] Hung Merchant, GRADING SUPERVISOR [address] [place] [address] 01/05/2026 10:45 AM EST Appointment [address] [address] Mer Sellers MD [address] [place] [address] documented as of this encounter Visit Diagnoses Not on filedocumented in this encounter Additional Health Concerns Assessment Noted Time PHQ-2 Depression Total Score: 0 08/07/20 25 1:50 PM EDT documented as of this encounter Care Teams Armament Installer Relationship Specialty Start Date End Date Hung Merchant CNP [address] [place] [address] [email or web address] PCP - General Nurse Practitioner 05/11/24 Pcp, Unknown 11/05/17 Mer Sellers MD 30 [place] [address] [email or web address] Medical Oncology 04/14/23 documented as of this encounter Additional Source Comments The information contained in this document represents components of the legal health record. It is not the complete legal health record.[facility]
--- OUTSIDE RECORDS SUMMARY | 2025-08-31 15:43 | XMS_ITS | Encounter Summary ---
Author Organization [facility] Address [address] [place] [address] Phone Care Team Providers Care Loan Inspector Name Role Phone Pcp, Unknown Unavailable Unavailable Mer Sellers MD Unavailable [phone] Hung Merchant CNP Primary Care Provider [phone] Encounter Details Date Type Department Care Team (Late st Contact Info) Description 2025 Telephone [employer] [facility] 29 [place] [address] Hung Merchant, FLORENTINO [address] [place] [address] [email or web address] Social History Tobacco Use Types Packs/Day Years [...] st Contact Info) Description 05/23/2025 Procedure Pass [address] [address] 09/19/2025 9:30 AM EST Procedure visit [facility] Orthopedics & Sports Medicine [address] [place] [address] Ana Kirkpatrick MD [address] [place] [address] Orthoped[facility] Sports [facility] [place] [address] 11/24/2025 10:00 AM EST Office Visit [facility] at [address] [address] Mer Sellers MD [address] [place] [address] 11/29/2025 4:00 PM EST Office Visit [address] [address] Hung Merchant CNP [address] [place] [address] [email or web address] 12/06/2025 8:15 AM EST Appointment [facility] [address] [address] Hung Merchant CNP [address] [place] [email or web address] 01/05/2026 10:45 AM EST Appointment [address] [address] Mer Sellers MD [address] [place] [email or web address] documented as of this encounter Visit Diagnoses Not on filedocumented in this encounter Additional Health Concerns Assessment Noted Time PHQ-2 Depression Total Score: 0 05/31/20 21 12:36 PM EDT documented as of this encounter Care Teams Loan Inspector Relationship Specialty Start Date End Date Hung Merchant CNP [address] [place] [address] [email or web address] PCP - General Nurse Practitioner 05/11/24 Pcp, Unknown 11/05/17 Mer Sellers MD [address] [place] [address] Medical Oncology 04/14/23 documented as of this encounter Additional Source Comments The information contained in this document represents components of the legal health record. It is not the complete legal health record.[facility]
--- OUTSIDE RECORDS SUMMARY | 2025-08-31 15:43 | XMS_ITS | Encounter Summary ---
Author Organization [facility] Address [address] [facility] [address] [place] [address] Phone Care Team Providers Care Draw Bench Operator Helper Name Role Phone Pcp, Unknown Unavailable Unavailable Mer Sellers MD Unavailable [phone] Hung Merchant [facility] Primary Care Provider [phone] Reason for Referral * MRI/CAT Scan - Closed Specialty Diagnoses / Procedures Referred By Contac t Referred To Contact Radiology Diagnoses Meningioma Brain mass Procedures MRI Brain CHG MRI BRAIN COMBO Roxanne Hansen PA [address] [place] [address] Phone: tel: fax: Referral ID Status Reason Start Date Expiration Date Visits Re quested Visits Authorized [id number] Closed 09/28/2024 11/26/2024 1 1 Encounter Details Date Type Department Care Team (Latest Contact Info) Description 09/28/2024 Transcribe Orders Virtual Department [address] [place] [address] Roxanne Hansen PA [address] [place] [address] Meningioma (Primary Dx); Brain mass Social History [...] st Contact Info) Description 05/23/2025 Procedure Pass [address] [address] 09/19/2025 9:30 AM EST Procedure visit [facility] Orthopedics & Sports Medicine [address] [place] [address] Ana Kirkpatrick MD [address] [place] [address] [facility] [place] [address] 11/24/2025 10:00 AM EST Office Visit [facility] at [address] [address] Mer Sellers MD [address] [place] [address] 11/29/2025 4:00 PM EST Office Visit [address] [address] Hung Merchant, FUR JOINER [address] [place] [address] 12/06/2025 8:15 AM EST Appointment [address] [address] Hung Merchant, FUR JOINER [address] [place] [address] [email or web address] 01/05/2026 10:45 AM EST Appointment [address] [address] Mer Sellers MD [address] [place] [address] [email or web address] documented as of this encounter Results * [...] unremarkable. Procedure Note Deb Rosario MD - 01/08/2025 MRI BRAIN (SKULL BASE) WITH AND WITHOUT CONTRAST Referring clinician's provided indication for this examination in [facility]:Outside Radiology Order; meningioma TECHNIQUE: Multi-sequence, multi-planar [...] abnormality. Roxanne KING IMG MR HEAD/NECK Final Resul t documented [...] documented as of this encounter Care Teams Draw Bench Operator Helper Relationship Specialty Start Date End Date Hung Merchant CNP [address] [place] [address] PCP - General Nurse Practitioner 05/11/24 Pcp, Unknown 11/05/17 Mer Sellers MD [address] [place] [address] Medical Oncology 04/14/23 documented as of this encounter Additional Source Comments The information contained in this document represents components of the legal health record. It is not the complete legal health record.[facility]
--- OUTSIDE RECORDS SUMMARY | 2025-08-31 15:43 | XMS_ITS | Encounter Summary ---
Author Organization [facility] Address [address] [place] [address] [place] [address] Phone Care Team Providers Care Bookmobile Driver Name Role Phone Pcp, Unknown Unavailable Unavailable Duke Lopes DO Primary Care Provider [phone] Mer Sellers MD Unavailable [phone] Hung Merchant CNP Primary Care Provider [phone] Encounter Details Date Type Department Care Team (Late st Contact Info) Description 09/10/2023 Procedure Pass [address] [address] Social History Tobacco Use Types Packs/Day Years [...] (Late st Contact Info) Description 05/23/[address] [address] 09/19/2025 9:30 AM EST Procedure visit [facility] Orthopedics & Sports Medicine [address] [place] [address] Ana Kirkpatrick MD [address] [place] [address] Orthopedics & Sports Medicine, [facility] [place] [address] 11/24/2025 10:00 AM EST Office Visit [facility] at [address] [address] Mer Sellers MD [address] [place] [address] 11/29/2025 4:00 PM EST Office Visit [address] [address] Hung Merchant, X RAY PHYSICIAN [address] [place] [address] [email or web address] 12/06/2025 8:15 AM EST Appointment [address] [address] Hung Merchant, X RAY PHYSICIAN [address] [place] [address] [email or web address] 01/05/2026 10:45 AM EST Appointment [address] [address] Mer Sellers MD [address] [place] [address] [email or web address] documented as of this encounter Visit Diagnoses Not on filedocumented in this encounter Additional Health Concerns Assessment Noted Time PHQ-2 Depression Total Score: 0 05/31/20 21 12:36 PM EDT documented as of this encounter Care Teams Bookmobile Driver Relationship Specialty Start Date End Date Duke Lopes DO [address] [place] [phone] [email or web address] PCP - General Internal Medicine 03/05/23 05/10/24 Hung Merchant CNP [address] [place] [email or web address] PCP - General Nurse Practitioner 05/11/24 Pcp, Unknown 11/05/17 Mer Sellers MD [address] [place] [address] Medical Oncology 04/14/23 documented as of this encounter Additional Source Comments The information contained in this document represents components of the legal health record. It is not the complete legal health record.[facility]
--- OUTSIDE RECORDS SUMMARY | 2025-08-31 15:43 | XMS_ITS | Encounter Summary ---
Author Organization [facility] Address [address] [facility] [address] [place] [address] Phone Care Team Providers Care Food Safety Manager Name Role Phone Pcp, Unknown Unavailable Unavailable Mer Sellers MD Unavailable [phone] Hung Merchant CNP Primary Care Provider [phone] Reason for Visit * Reason Onset Date Comments Triage 2025 Hip pain Encounter Details Date Type Department Care Team (Late st Contact Info) Description 2025 Telephone [facility] Medicine [address] [place] [address] Hung Merchant CNP [address] [place] [address] [email or web address] Triage (Hip pain ) Social History Tobacco [...] Call Back Number: (if not patient, name/relationship [phone] Green Symptom(s): Triage (Hip pain ) When [...] st Contact Info) Description 05/23/2025 Procedure Pass [address] [address] 09/19/2025 9:30 AM EST Procedure visit [facility] Orthopedics & Sports Medicine [address] [place] [address] Ana Kirkpatrick MD [address] [place] [address] Orthopedics & Sports [place], [place] [address] 11/24/2025 10:00 AM EST Office Visit [facility] at [address] [address] Mer Sellers MD [address] [place] [address] 11/29/2025 4:00 PM EST Office Visit [address] [address] Hung Merchant, DIRECTOR GLOBAL [address] [place] [address] 12/06/2025 8:15 AM EST Appointment [facility] Bone Density [address] [address] Hung Merchant, DIRECTOR GLOBAL [address] [place] [address] 01/05/2026 10:45 AM EST Appointment [address] [address] Mer Sellers MD [address] [place] [address] documented as of this encounter Visit Diagnoses Not on filedocumented in this encounter Additional Health Concerns Assessment Noted Time PHQ-2 Depression Total Score: 0 05/31/20 21 12:36 PM EDT documented as of this encounter Care Teams Food Safety Manager Relationship Specialty Start Date End Date Hung Merchant CNP [address] [place] [address] PCP - General Nurse Practitioner 05/11/24 Pcp, Unknown 11/05/17 Mer Sellers MD [address] [place] [address] [email or web address] Medical Oncology 04/14/23 documented as of this encounter Additional Source Comments The information contained in this document represents components of the legal health record. It is not the complete legal health record.[facility]
--- OUTSIDE RECORDS SUMMARY | 2025-08-31 15:43 | XMS_ITS | Encounter Summary ---
Author Organization [facility] Address [address] [place] [address] [place] [address] Phone Care Team Providers Care Supervisor Dried Yeast Name Role Phone Pcp, Unknown Unavailable Unavailable Mer Sellers MD Unavailable [phone] Hung Merchant CNP Primary Care Provider [phone] Reason for Visit * Reason Comments Medication Refill Encounter Details Date Type Department Care Team (Late st Contact Info) Description 07/17/2025 Refill [facility] Family Medicine [address] [place] [address] Hung Merchant CNP [address] [place] [address] [email or web address] Medication Refill Social History [...] 03/01/2025 Hung Merchant, FLORENTINO - Family Medicine [facility] Neftali VERGARA > Requested f/u: Return in about 6 months (around 08/31/2025) for Recheck. Upcoming visit: 11/29/2025 Hung Merchant CNP - Family [facility] Neftali [facility] ACTIONS TAKEN BY Darlene Lucas - Checked PDMP/[place]. 06/10/2025 1 Tramadol Hcl 50 Mg Tablet 20 5 Opioid Rx Protocol - tramadol HClPRESCRIBER ATTENTION REQUIRED - Please evaluate Controlled substance renewals are at prescriber discretion. Pain mgmt profile/toxicology (urine/saliva) may be considered annually or more frequently if indicated. In-person visit in past 2 years: Yes (Last in-person visit: 03/01/2025 (Hung Merchant CNP - [facility] Neftali [facility])) Visit in past 4 months: No No benzodiazepine on medication list Opioid agreement on file: No Pain management profile/toxicology in past 12 months: No documented in this encounter Plan of Treatment Upcoming Encounters Date Type Department Care Team (Late st Contact Info) Description 05/23/2025 Procedure Pass [address] [address] 09/19/2025 9:30 AM EST Procedure visit [facility] Orthopedics & Sports Medicine [address] [place] [address] nAa Kirkpatrick MD [address] [place] [address] Orthopedics & Sports Medicine, [facility] [address] 11/24/2025 10:00 AM EST Office Visit [facility] at [address] [address] Mer Sellers MD [address] [place] [address] [email or web address] 11/29/2025 4:00 PM EST Office Visit [address] [address] Hung Merchant CNP [address] [place] [address] [email or web address] 12/06/2025 8:15 AM EST Appointment [address] [address] Hung Merchant CNP [address] [place] [address] [email or web address] 01/05/2026 10:45 AM EST Appointment [address] [address] Mer Sellers MD [address] [place] [address] documented as of this encounter Visit Diagnoses Diagnosis Bilateral hip pain Pain in joint, pelvic region and thigh documented in this encounter Additional Health Concerns Assessment Noted Time PHQ-2 Depression Total Score: 0 05/31/20 21 12:36 PM EDT documented as of this encounter Care Teams Supervisor Dried Yeast Relationship Specialty Start Date End Date Hung Merchant, FLORENTINO [address] [place] [address] [email or web address] PCP - General Nurse Practitioner 05/11/24 Pcp, Unknown 11/05/17 Mer Sellers MD [address] [place] [address] [email or web address] Medical Oncology 04/14/23 documented as of this encounter Additional Source Comments The information contained in this document represents components of the legal health record. It is not the complete legal health record.[facility]
--- OUTSIDE RECORDS SUMMARY | 2025-08-31 15:43 | XMS_ITS | Encounter Summary ---
Author Organization [facility] Address [address] [facility] [address] [place] [address] Phone Care Team Providers Care Hot Blaster Name Role Phone Pcp, Unknown Unavailable Unavailable Mer Sellers MD Unavailable [phone] Hung Merchant CNP Primary Care Provider [phone] Encounter Details Date Type Department Care Team (Late st Contact Info) Description 08/24/2025 Orders Only [facility] [address] [place], [place] [id number] Hung Merchant, FLORENTINO [address] [place] [address] [email or web address] Type 2 diabetes mellitus without complication, without long-term current use of insulin; White coat syndrome with diagnosis of hypertension Social History Tobacco Use Types Packs/Day Years [...] st Contact Info) Description 05/23/2025 Procedure Pass [address] [address] 09/19/2025 9:30 AM EST Procedure visit [facility] Orthopedics & Sports Medicine [address] [place] [address] Ana Kirkpatrick MD [address] [place] [address] Orthopedics & Sports Medicine, [facility] [place] [address] 11/24/2025 10:00 AM EST Office [facility] at [address] [address] Mer Sellers MD [address] [place] [address] 11/29/2025 4:00 PM EST Office Visit [address] [address] Hung Merchant, SHIFT NURSE MANAGER [address] [place] [address] 12/06/2025 8:15 AM EST Appointment [address] [address] Hung Merchant, FLORENTINO [address] [place] [address] 01/05/2026 10:45 AM EST Appointment [address] [address] Mer Sellers MD [address] [place] [address] documented as of this encounter Procedures Procedure Name Priority Date/Time Associated Diagnosis Comments HEMOGLOBIN A1C Routine 08/23/2025 12:06 PM EDT [...] White coat syndrome with diagnosis of hypertension documented in this encounter Results * Hemoglobin A1c (08/23/2025 12:06 PM EDT) Blood Hung Medina Mayur SHIFT NURSE MANAGER LAB BLOOD ORDERABLES Final Result Performing Organization Address City/[facility]/ZIP Co de Phone Number [address] [address] * Comprehensive metabolic panel (08/23/2025 12:06 PM EDT) Blood Hung Medina Mayur GOOD LAB BLOOD ORDERABLES Final Result Performing Organization Address City/[facility]/ZIP Co de Phone Number [address] [address] * CBC (08/23/2025 12:05 PM EDT) Blood Hung Medina Mayur SHIFT NURSE MANAGER LAB BLOOD ORDERABLES Final Result Performing Organization Address [facility] Co de Phone Number [address] [address] documented in this encounter Visit Diagnoses Diagnosis Type 2 diabetes mellitus without complication, without long-term current use of insulin White coat syndrome with diagnosis of hypertension documented in this encounter Additional Health Concerns Assessment Noted Time PHQ-2 Depression Total Score: 0 08/07/20 25 1:50 PM EDT documented as of this encounter Care Teams Hot Blaster Relationship Specialty Start Date End Date Hung Merchant CNP [address] [place] [address] [place] [address] PCP - General Nurse Practitioner 05/11/24 Pcp, Unknown 11/05/17 Mer Sellers MD [address] [place] [phone] [email or web address] Medical Oncology 04/14/23 documented as of this encounter Additional Source Comments The information contained in this document represents components of the legal health record. It is not the complete legal health record.[facility]
--- OUTSIDE RECORDS SUMMARY | 2025-08-31 15:43 | XMS_ITS | Encounter Summary ---
Author Organization [facility] Address [address] [place] [address] Phone Care Team Providers Care Line Up Worker Name Role Phone Pcp, Unknown Unavailable Unavailable Mer Sellers MD Unavailable [phone] Hung Merchant CNP Primary Care Provider [phone] Encounter Details Date Type Department Care Team (Late st Contact Info) Description 09/28/2024 Procedure Pass [facility], [address] [address] Social History Tobacco Use Types Packs/Day Years [...] st Contact Info) Description 05/23/2025 Procedure Pass [address] [address] 09/19/2025 9:30 AM EST Procedure visit [facility] Orthopedics & Sports Medicine [address] [place] [address] Ana Kirkpatrick MD [address] [place] [address] Orthopedics & Sports Medicine, [place] [address] 11/24/2025 10:00 AM EST Office Visit [facility] at [address] [address] Mer Sellers MD [address] [place] [address] 11/29/2025 4:00 PM EST Office Visit [address] [address] Hung Merchant, [address] [place] [address] 12/06/2025 8:15 AM EST Appointment [facility] Bone Density [address] [address] Hung Merchant CNP [address] [place] [address] [email or web address] 01/05/2026 10:45 AM EST Appointment [facility] Mammography[address] [address] Mer Sellers MD [address] [place] [address] documented as of this encounter Visit Diagnoses Not on filedocumented in this encounter Additional Health Concerns Assessment Noted Time PHQ-2 Depression Total Score: 0 05/31/20 21 12:36 PM EDT documented as of this encounter Care Teams Line Up Worker Relationship Specialty Start Date End Date Hung Merchant CNP [address] [place] [address] PCP - General Nurse Practitioner 05/11/24 Pcp, Unknown 11/05/17 Mer Sellers MD [address] [place] [address] Medical Oncology 04/14/23 documented as of this encounter Additional Source Comments The information contained in this document represents components of the legal health record. It is not the complete legal health record.[facility]
--- OUTSIDE RECORDS SUMMARY | 2025-08-31 15:43 | XMS_ITS | Encounter Summary ---
Author Organization [facility] Address [address] [place] [address] [place] [address] Phone Care Team Providers Care Transportation Planner Name Role Phone Pcp, Unknown Unavailable Unavailable Mer Sellers MD Unavailable [phone] Hung Merchant CNP Primary Care Provider [phone] Reason for Visit * Reason Onset Date Comments rx refill 03/01/2025 Encounter Details Date Type Department Care Team (Late st Contact Info) Description 03/01/2025 Telephone [facility] Medicine [address] [place] [address] Hung Merchant CNP [address] [place] [address] [email or web address] rx refill Social History Tobacco Use Types [...] 03/01/2025 Hung Merchant CNP - Family Medicine [facility] [address] [facility] Neftali VERGARA > Requested f/u: Return in about 6 months (around 08/31/2025) for Recheck. Upcoming visit: 11/29/2025 Hung Merchant CNP - Family Medicine [facility] [address] [address] Neftali VERGARA ACTIONS TAKEN BY Yulissa Christopher [...] PM EDT Tramadol 50 MG send to [facility] documented in this encounter Plan of Treatment Upcoming Encounters Date Type Department Care Team (Late st Contact Info) Description 05/23/2025 Procedure Pass [address] [address] 09/19/2025 9:30 AM EST Procedure visit [facility] Orthopedics & Sports Medicine [address] [place] [address] Ana Kirkpatrick MD [address] [place] [address] Orthopedics & Sports Medicine, [place] [address] 11/24/2025 10:00 AM EST Office Visit [facility] at [address] [address] Mer Sellers MD [address] [place] [address] 11/29/2025 4:00 PM EST Office Visit [address] [address] Hung Merchant, FLORENTINO [address] [place] [address] 12/06/2025 8:15 AM EST Appointment [facility], Bone Density [address] [address] Hung Merchant CNP [address] [place] [address] 01/05/2026 10:45 AM EST Appointment [facility], Mamm[address] [address] Mer Sellers MD [address] [place] [address] documented as of this encounter Visit Diagnoses Diagnosis Bilateral hip pain Pain in joint, pelvic region and thigh documented in this encounter Additional Health Concerns Assessment Noted Time PHQ-2 Depression Total Score: 0 05/31/20 21 12:36 PM EDT documented as of this encounter Care Teams Transportation Planner Relationship Specialty Start Date End Date Hung Merchant CNP [address] [place] [address] PCP - General Nurse Practitioner 05/11/24 Pcp, Unknown 11/05/17 Mer Sellers MD [address] [place] [address] Medical Oncology 04/14/23 documented as of this encounter Additional Source Comments The information contained in this document represents components of the legal health record. It is not the complete legal health record.[facility]
--- OUTSIDE RECORDS SUMMARY | 2025-08-31 15:43 | XMS_ITS | Encounter Summary ---
Author Organization [facility] Address [address] [place] [address] Phone Care Team Providers Care Quality Lab Technician Name Role Phone Pcp, Unknown Unavailable Unavailable Mer Sellers MD Unavailable [phone] Hung Merchant SERVICE TECH Primary Care Provider [phone] Reason for Visit * Reason Onset Date Comments Medication Refill 08/28/2025 Encounter Details Date Type Department Care Team (Late st Contact Info) Description 08/28/2025 Refill [facility] [address] [place] [address] Richard Mercado MA [address] [place] [address] [email or web address] Medication Refill Social History Tobacco Use Types [...] enough money to get more. Never True 07/10/202 4 Residential Stability Answer Date Recor ded What [...] encounter Progress Notes * Darlene Lucas - 08/28/2025 4:03 PM EDT Called and talked to jarrod, she states she takes 1 1/2 to 2 tabs a day, she's been using it more often, patient has been doing a lot of yard work and is in more pain, its very touch and go she states, she states she doesn't feel like the medication is strong enough so she has been using it more oftenbut doesn't want any meds that will coma her either. * Richard Mercado MA - 08/28/2025 12:15 PM EDT Images from the original note were not included. Rx Care Gap Status - Instructions for Clinical Staff (prescriber discretion applies): > Mismatch review guide > Check PDMP for all controlled medication requests. Visit Info Last visit: 08/07/2025 Hung Merchant CNP - Family Medicine [facility] > Requested f/u: Return in about 6 months (around 02/05/2026) for Medicare AWV. Upcoming visit: 11/29/2025 Hung Merchant CNP - Family Medicine [facility] ACTIONS TAKEN BY Richard Mercado MA - Checked PDMP/[place]. Opioid Rx Protocol - tramadol HCl Controlled substance renewals are at prescriber discretion. Pain mgmt profile/toxicology (urine/saliva) may be considered annually or more frequently if indicated. In-person visit in past 2 years: Yes (Last in-person visit: 08/07/2025 (Hung Merchant, [place] [facility])) Visit in past 4 months: Yes No benzodiazepine on medication list Opioid agreement on file: No Pain management profile/toxicology in past 12 months: No documented in this encounter Plan of Treatment Upcoming Encounters Date Type Department Care Team (Late st Contact Info) Description 05/23/2025 Procedure Pass [address] [address] 09/19/2025 9:30 AM EST Procedure visit [facility] Sports Medicine [address] [place] [address] Ana Kirkpatrick MD [address] [place] [address] Orthopedics & Sports Medicine, [facility] [place] [address] 11/24/2025 10:00 AM EST Office Visit [facility] at [address] [address] Mer Sellers MD [address] [place] [address] 11/29/2025 4:00 PM EST Office Visit [facility] [address] [place] [address] Hung Merchant CNP [address] [place] [address] 12/06/2025 8:15 AM EST Appointment [facility], Bone Density [address] [address] Hung Merchant CNP [address] [place] [address] [email or web address] 01/05/2026 10:45 AM EST Appointment [facility] Mamm[address] [address] Mer Sellers MD [address] [place] [address] documented as of this encounter Visit Diagnoses Diagnosis Bilateral hip pain Pain in joint, pelvic region and thigh documented in this encounter Additional Health Concerns Assessment Noted Time PHQ-2 Depression Total Score: 0 08/07/20 25 1:50 PM EDT documented as of this encounter Care Teams Quality Lab Technician Relationship Specialty Start Date End Date Hung Merchant CNP [address] [place] [address] [email or web address] PCP - General Nurse Practitioner 05/11/24 Pcp, Unknown 11/05/17 Mer Sellers MD [address] [place] [address] Medical Oncology 04/14/23 documented as of this encounter Additional Source Comments The information contained in this document represents components of the legal health record. It is not the complete legal health record.[facility]
--- OUTSIDE RECORDS SUMMARY | 2025-08-31 15:43 | XMS_ITS | Encounter Summary ---
Author Organization [facility] Address [address] [place] [address] Phone Care Team Providers Care Gut Snatcher Name Role Phone Pcp, Unknown Unavailable Unavailable Mer Sellers MD Unavailable [phone] Hung Merchant CNP Primary Care Provider [phone] Encounter Details Date Type Department Care Team (Late st Contact Info) Description 08/31/2024 Procedure Pass [facility], Ct Scan - [address] [address] Social History Tobacco Use Types Packs/Day Years [...] st Contact Info) Description 05/23/2025 Procedure Pass [address] [address] 09/19/2025 9:30 AM EST Procedure visit [facility] Orthopedics & Sports Medicine [address] [place] [address] Ana Kirkpatrick MD [address] [place] [address] Orthopedics & Sports Medicine, [place] [address] 11/24/2025 10:00 AM EST Office Visit [facility] at [address] [address] Mer Sellers MD [address] [place] [address] 11/29/2025 4:00 PM EST Office Visit [address] [address] Hung Merchant, [address] [place] [address] 12/06/2025 8:15 AM EST Appointment [facility], Bone Density [address] [address] Hung Merchant CNP [address] [place] [address] 01/05/2026 10:45 AM EST Appointment [address] [address] Mer Sellers MD [address] [place] [address] documented as of this encounter Visit Diagnoses Not on filedocumented in this encounter Additional Health Concerns Assessment Noted Time PHQ-2 Depression Total Score: 0 05/31/20 21 12:36 PM EDT documented as of this encounter Care Teams Gut Snatcher Relationship Specialty Start Date End Date Hung Merchant CNP [address] [place] [address] PCP - General Nurse Practitioner 05/11/24 Pcp, Unknown 11/05/17 Mer Sellers MD [address] [place] [address] Medical Oncology 04/14/23 documented as of this encounter Additional Source Comments The information contained in this document represents components of the legal health record. It is not the complete legal health record.[facility]
--- OUTSIDE RECORDS SUMMARY | 2025-08-31 15:43 | XMS_ITS | Encounter Summary ---
Author Organization [facility] Address [address] [place] [address] Phone Care Team Providers Care Business Analysis Analyst Name Role Phone Pcp, Unknown Unavailable Unavailable Mer Sellers MD Unavailable [phone] Hung Merchant CNP Primary Care Provider [phone] Encounter Details Date Type Department Care Team (Late st Contact Info) Description 08/31/2024 Procedure Pass [facility], Ct Scan - [address] [address] Social History Tobacco Use Types Packs/Day Years [...] st Contact Info) Description 05/23/2025 Procedure Pass [address] [address] 09/19/2025 9:30 AM EST Procedure visit [facility] Orthopedics & Sports Medicine [address] [place] [address] Ana Kirkpatrick MD [address] [place] [address] Orthopedics & Sports Medicine, [place] [address] 11/24/2025 10:00 AM EST Office Visit [facility] at [address] [address] Mer Sellers MD [address] [place] [address] 11/29/2025 4:00 PM EST Office Visit [address] [address] Hung Merchant, [address] [place] [address] 12/06/2025 8:15 AM EST Appointment [facility], Bone Density [address] [address] Hung Merchant CNP [address] [place] [address] 01/05/2026 10:45 AM EST Appointment [address] [address] Mer Sellers MD [address] [place] [address] documented as of this encounter Visit Diagnoses Not on filedocumented in this encounter Additional Health Concerns Assessment Noted Time PHQ-2 Depression Total Score: 0 05/31/20 21 12:36 PM EDT documented as of this encounter Care Teams Business Analysis Analyst Relationship Specialty Start Date End Date Hung Merchant CNP [address] [place] [address] PCP - General Nurse Practitioner 05/11/24 Pcp, Unknown 11/05/17 Mer Sellers MD [address] [place] [address] Medical Oncology 04/14/23 documented as of this encounter Additional Source Comments The information contained in this document represents components of the legal health record. It is not the complete legal health record.[facility]
--- OUTSIDE RECORDS SUMMARY | 2025-08-31 15:43 | XMS_ITS | Encounter Summary ---
Author Organization [facility] Address [address] [place] [address] [place] [address] Phone Care Team Providers Care Net Developer Name Role Phone Pcp, Unknown Unavailable Unavailable Duke Lopes DO Primary Care Provider [phone] Mer Sellers MD Unavailable [phone] Hung Merchant CNP Primary Care Provider [phone] Reason for Referral * MRI/CAT Scan - Closed Specialty Diagnoses / Procedures Referred By Malik brown Referred To Contact Radiology Diagnoses Pituitary lesion Procedures MRI Brain CHG MRI BRAIN COMBO Juanito Hassan MD [address] [place] [address], [address] [place] [address] Phone: tel: fax: [email or web address] Referral ID Status Reason Start Date Expiration Date Visits Re quested Visits Authorized [id number] Closed 09/10/2023 11/09/2023 1 1 Encounter Details Date Type Department Care Team (Latest Contact Info) Description 09/10/2023 Transcribe Orders Virtual Department [address] [place], [place] [id number] Juanito Hassan MD [address] [place] [address], [address] [place] [phone] [email or web address] Pituitary lesion (Primary Dx) Social History [...] st Contact Info) Description 05/23/2025 Procedure Pass [facility], [address] [address] 09/19/2025 9:30 AM EST Procedure visit [facility] Orthopedics & Sports Medicine [address] [place] [address] Ana Kirkpatrick MD [address] [place] [address] Orthopedics & Sports Medicine, [place] [address] 11/24/2025 10:00 AM EST Office Visit [facility] at [address] [address] Mer Sellers MD [address] [place] [address] 11/29/2025 4:00 PM EST Office Visit [facility] [address] [place] [address] Hung Merchant, [place] [address] [place] [address] 12/06/2025 8:15 AM EST Appointment [facility], Bone Density [address] [address] Hung Merchant, [place] [address] [place] [address] [email or web address] 01/05/2026 10:45 AM EST Appointment [address] [address] Mer Sellers MD [address] [place] [address] [email or web address] documented as of this encounter Results * [...] documented as of this encounter Care Teams Net Developer Relationship Specialty Start Date End Date Duke Lopes DO [address] [place] [address] 20 [place] [address] [email or web address] PCP - General Internal Medicine 03/05/23 05/10/24 Hung Merchant CNP [address] [place] [address] [email or web address] PCP - General Nurse Practitioner 05/11/24 Pcp, Unknown 11/05/17 Mer Sellers MD [address] [place] [address] Medical Oncology 04/14/23 documented as of this encounter Additional Source Comments The information contained in this document represents components of the legal health record. It is not the complete legal health record.[facility]
--- OUTSIDE RECORDS SUMMARY | 2025-08-31 15:43 | XMS_ITS | Clinical Summary ---
Author Organization [facility], Address [address] [place] [address] Phone Care Team Providers Care Supervisor Extrusion Name Role Phone Rachna Dickerson Primary Care Provider [phone] Allergies Active Allergy Reactions Criticality Noted Date [...] patient's age to complete this topic Insurance [facility] Health Care Teams Supervisor Extrusion Relationship Specialty Start Date End Date Rachna Dickerson [address] [place] [address] PCP - General 03/12/22
--- OUTSIDE RECORDS SUMMARY | 2025-08-31 15:43 | XMS_ITS | Encounter Summary ---
Author Organization [facility] Address [address] [place] [address] [place] [address] Phone Care Team Providers Care Industrial Training Specialist Name Role Phone Pcp, Unknown Unavailable Unavailable Mer Sellers MD Unavailable [phone] Hung Merchant CNP Primary Care Provider [phone] Reason for Visit * Reason Comments Medication Refill Encounter Details Date Type Department Care Team (Late st Contact Info) Description 07/19/2025 Refill [facility] Family Medicine [address] [place] [address] Hung Merchant CNP [address] [place] [address] [email or web address] Medication Refill Social [...] st Contact Info) Description 05/23/2025 Procedure Pass [address] [place] [address] 09/19/2025 9:30 AM EST Procedure visit [facility] Orthopedics & Sports Medicine [address] [place] [address] Ana Kirkpatrick MD [address] [place] [address] Orthopedics & Sports Medicine, [facility] [place] [address] 11/24/2025 10:00 AM EST Office Visit [facility] at [address] [address] Mer Sellers MD [address] [place] [address] 11/29/2025 4:00 PM EST Office Visit [address] [address] Hung Merchant CNP [address] [place] [address] [email or web address] 12/06/2025 8:15 AM EST Appointment [facility] Bone [address] [address] Hung Merchant CNP [address] [place] [address] 01/05/2026 10:45 AM EST Appointment [address] [address] Mer Sellers MD [address] [place] [address] [email or web address] documented as of this encounter Visit Diagnoses Diagnosis Bilateral hip pain Pain in joint, pelvic region and thigh documented in this encounter Additional Health Concerns Assessment Noted Time PHQ-2 Depression Total Score: 0 05/31/20 21 12:36 PM EDT documented as of this encounter Care Teams Industrial Training Specialist Relationship Specialty Start Date End Date Hung Merchant CNP [address] [place] [address] PCP - General Nurse Practitioner 05/11/24 Pcp, Unknown 11/05/17 Mer Sellers MD [address] [place] [address] [email or web address] Medical Oncology 04/14/23 documented as of this encounter Additional Source Comments The information contained in this document represents components of the legal health record. It is not the complete legal health record.[facility]
--- OUTSIDE RECORDS SUMMARY | 2025-08-31 15:43 | XMS_ITS | Encounter Summary ---
Author Organization [facility] Address [address] [place] [address] Phone Care Team Providers Care Shipping And Receiving Supervisor Name Role Phone Pcp, Unknown Unavailable Unavailable Mer Sellers MD Unavailable [phone] Hung Merchant [facility] Primary Care Provider [phone] Encounter Details Date Type Department Care Team (Late st Contact Info) Description 08/31/2025 Orders Only [facility] [address] [place] [address] Provider, MD Cesilia [address] [place], [place] [id number] Social History Tobacco Use Types Packs/Day Years [...] Contact Info) Description 05/23/2025 Procedure Pass [address] [address] 09/19/2025 9:30 AM EST Procedure visit [facility] Orthopedics & Sports Medicine [address] [place] [address] Ana Kirkpatrick MD [address] [place] [address] Orthopedics & Sports Medicine, [place] [address] 11/24/2025 10:00 AM EST Office Visit [facility] at [address] [address] Mer Sellers MD [address] [place] [address] 11/29/2025 4:00 PM EST Office Visit [facility] Family Medicine [address] [place] [address] Hung Merchant, [place] [address] [place] [address] [email or web address] 12/06/2025 8:15 AM EST Appointment [facility], Bone Density [address] [address] Hung Merchant CNP [address] [place] [address] 01/05/2026 10:45 AM EST Appointment [facility] Mammography[address] [address] Mer Sellers MD [address] [place] [address] documented as of this encounter Procedures Procedure Name Priority Date/Time Associated Diagnosis Comments OUTSIDE IMAGING Routine 08/31/2025 2:39 PM EDT documented in this encounter Results * Outside Imaging Report Only (08/31/2025 2:39 PM EDT) us Historical Provider MD GEE XR CHEST Final Res ult documented in this encounter Visit Diagnoses Not on filedocumented in this encounter Additional Health Concerns Assessment Noted Time PHQ-2 Depression Total Score: 0 08/07/20 25 1:50 PM EDT documented as of this encounter Care Teams Shipping And Receiving Supervisor Relationship Specialty Start Date End Date Hung Merchant CNP [address] [place] [address] PCP - General Nurse Practitioner 05/11/24 Pcp, Unknown 11/05/17 Mer Sellers MD [address] [place] [address] Medical Oncology 04/14/23 documented as of this encounter Additional Source Comments The information contained in this document represents components of the legal health record. It is not the complete legal health record.[facility]
== END 2025-08-31 12:50 | disposition home or self-care (01) ==
LOC: HO.CT 12:49
PROVIDERS: PCP Registered Nurse; Visit Provider Surgery Vascular Surgery
DX: I72.3 Aneurysm of iliac artery (principal)
CPT/HCPCS: 74174; Q9967

== ENCOUNTER → 2025-08-31 12:51 | Outpatient (BNV) | payer OTHER, SELFPAY | PROVIDERS: PCP Registered Nurse; Visit Provider Radiology Diagnostic Radiology | DX: I72.3 Aneurysm of iliac artery (principal); I71.40 Abdominal aortic aneurysm, without rupture, unspecified; I25.10 Atherosclerotic heart disease of native coronary artery without angina pectoris; K42.9 Umbilical hernia without obstruction or gangrene | CPT/HCPCS: 74174 ==

== ENCOUNTER 2025-09-05 13:09 | Outpatient (AMB) | payer OTHER, SELFPAY ==
--- NOTE | 2025-09-05 13:10 | MHC.OFFVIS ---
Vital Signs 09/05/25 13:12 Height 5 ft 4 in Intake Visit Reasons: 3m follow up CTA ABD/Pelvis 08/31/25 Intake Note: 3 mo follow up CTA Abd/pelvis 08/31/25 for iliac artery aneurysm. Magisterial District Judge Required: No Accompanied by: Self / Same As Patient Allergies Sulfa (Sulfonamide Antibiotics) Allergy (Mild, Verified 09/05/25 13:17) Unknown HPI HPI 3m follow up CTA ABD/Pelvis 08/31/25: Details: The patient is a 80-year-old female presenting with a 3-month follow-up for an iliac artery aneurysm. The iliac artery aneurysm has been monitored through imaging, with recent scans showing a slight increase in size. The patient has been advised that intervention is necessary to prevent further enlargement. The patient also reports a history of gout, which impacts her daily activities. Review of Systems Const All systems reviewed & are unremarkable except as noted in HPI and below Reports no additional complaints ENT Reports Normal hearing present Card Denies chest pain, Denies chest pain at rest, Denies chest pain with activity and Denies pedal edema Resp Denies cough GI Denies abdominal pain Musc Denies abnormal gait, Denies muscle cramps and Denies radiating pain into limb Skin/Breast Denies skin ulcer and Denies wounds Neuro Reports Normal hearing present and Denies abnormal gait Psych Reports no additional complaints Physical Exam Const General: cooperative, healthy appearing and comfortable Orientation/consciousness: oriented to person, oriented to place and oriented to time HEENT Head: Yes normal to inspection Neck Neck: Yes normal visual inspection Carotids: no bruits Chest Chest palpation & inspection: normal inspection of the chest Resp Effort & Inspection: normal respiratory effort and able to speak in complete sentences Auscultation: clear to auscultation bilaterally, no crackles, no rales, no rhonchi and no wheezes Cardio Rate: regular rate Rhythm: regular rhythm Heart sounds: S1 normal heart sound present and S2 normal heart sound present Bruits: no carotid bruits Peripheral pulses: Peripheral pulses 2+ throughout GI Inspection: Yes normal to inspection Skin Wounds: no wounds Hair: normal Neuro General: oriented to person, oriented to place and oriented to time Cranial nerves: Yes CN's II-XII intact bilaterally and Yes Normal hearing present Cognition (Neuro): normal cognition Motor exam (neuro): 5/5 motor strength present throughout Extrem Other: venous exam: No significant superficial varicosities or spider telangiectasias, minimal edema General: No clubbing, No cyanosis and No edema Psych Appearance: grossly normal Mental Status: mental status grossly normal Speech and movement: Normal speech and movement present Results Reviewed Results Reviewed: CT angiogram dated 08/31 2025 demonstrates a 41 mm left internal iliac artery aneurysm. Written report and images were reviewed. Assessment & Plan Assessment & Plan (1) Aneurysm of left internal iliac artery: Code(s): I72.3 - Aneurysm of iliac artery Category: Medical Plan: Patient has left hypogastric aneurysm that is increasing in size. I have discussed the pathophysiology of peripheral vascular disease with the patient. I have also discussed risk factor modification. I have reviewed the patient's CT scan which demonstrates left hypogastric aneurysm. the patient would benefit from a left leg endovascular peripheral angiogram with possible angioplasty, stent, and/or atherectomy and coiling. This has been discussed in detail with the patient along with risks, benefits, and complications. This includes but is not limited to bleeding, infection, heart attack, need for emergent surgical repair, limb ischemia, blood vessel damage, bleeding, puncture, kidney injury, bruising, allergic reaction, and skin reaction. The patient demonstrates a clear understanding. We will schedule for the next appropriate time. Thank you for allowing us to assist in this patient's care. Coding Level of Care Code Est Pt Level 4 (09570) Complex EM visit Add On G2211 Diagnoses Aneurysm of left internal iliac artery I72.3
--- OUTSIDE RECORDS SUMMARY | 2025-09-05 16:06 | XMS_ITS | Encounter Summary ---
Author Organization [facility] Address [address] [place] [address] Phone Care Team Providers Care Geophysical Prospecting Surveyor Name Role Phone Pcp, Unknown Unavailable Unavailable Mer Sellers MD Unavailable [phone] Hung Merchant [facility] Primary Care Provider [phone] Reason for Referral * MRI/CAT Scan - Closed Specialty Diagnoses / Procedures Referred By Contac t Referred To Contact Radiology Diagnoses Meningioma Brain mass Procedures MRI Brain CHG MRI BRAIN COMBO Roxanne Hansen PA [address] [place] [address] Phone: tel: fax: Referral ID Status Reason Start Date Expiration Date Visits Re quested Visits Authorized [id number] Closed 09/28/2024 11/26/2024 1 1 Encounter Details Date Type Department Care Team (Latest Contact Info) Description 09/28/2024 Transcribe Orders Virtual Department [address] [place] [address] Roxanne Hansen PA [address] [place] [address] Meningioma (Primary Dx); Brain mass Social History [...] st Contact Info) Description 05/23/2025 Procedure Pass [address] [address] 09/19/2025 9:30 AM EST Procedure visit [facility] Orthopedics & Sports Medicine [address] [place] [address] Ana Kirkpatrick MD [address] [place] [address] [facility] [place] [address] 11/24/2025 10:00 AM EST Office Visit [facility] at [address] [address] Mer Sellers MD [address] [place] [address] 11/29/2025 4:00 PM EST Office Visit [address] [address] Hung Merchant, MEASUREMENT SPECIALIST [address] [place] [address] 12/06/2025 8:15 AM EST Appointment [address] [address] Hung Merchant, MEASUREMENT SPECIALIST [address] [place] [address] 01/05/2026 10:45 AM EST Appointment [address] [address] Mer Sellers MD [address] [place] [address] documented as of this encounter Results * [...] documented as of this encounter Care Teams Geophysical Prospecting Surveyor Relationship Specialty Start Date End Date Hung Merchant CNP [address] [place] [address] PCP - General Nurse Practitioner 05/11/24 Pcp, Unknown 11/05/17 Mer Sellers MD [address] [place] [address] Medical Oncology 04/14/23 documented as of this encounter Additional Source Comments The information contained in this document represents components of the legal health record. It is not the complete legal health record.[facility]
--- OUTSIDE RECORDS SUMMARY | 2025-09-05 16:06 | XMS_ITS | Encounter Summary ---
Author Organization [facility] Address [address] [place] [address] [place] [address] Phone Care Team Providers Care Torque Tester Name Role Phone Pcp, Unknown Unavailable Unavailable Duke Lopes DO Primary Care Provider [phone] Mer Sellers MD Unavailable [phone] Hung Merchant LIBRARY MEDIA SPECIALIST Primary Care Provider [phone] Encounter Details Date Type Department Care Team (Late st Contact Info) Description 03/01/2024 Procedure Pass [facility], Ct Scan - [address] [address] Social History Tobacco Use Types Packs/Day Years [...] st Contact Info) Description 05/23/2025 Procedure Pass [facility], Mammography- [facility] [address] [place] [address] 09/19/2025 9:30 AM EST Procedure visit [facility] Orthopedics & Sports Medicine [address] [place] [address] Ana Kirkpatrick MD [address] [place] [address] Orthopedics & Sports Medicine, [place] [address] 11/24/2025 10:00 AM EST Office Visit [facility] at [address] [address] Mer Sellers MD [address] [place] [address] 11/29/2025 4:00 PM EST Office Visit [address] [address] Hung Merchant, LIBRARY MEDIA SPECIALIST [address] [place] [address] 12/06/2025 8:15 AM EST Appointment [address] [address] Hung Merchant, LIBRARY MEDIA SPECIALIST [address] [place] [address] 01/05/2026 10:45 AM EST Appointment [address] [address] Mer Sellers MD [address] [place] [address] documented as of this encounter Visit Diagnoses Not on filedocumented in this encounter Additional Health Concerns Assessment Noted Time PHQ-2 Depression Total Score: 0 05/31/20 21 12:36 PM EDT documented as of this encounter Care Teams Torque Tester Relationship Specialty Start Date End Date Duke Lopes DO [address] [place] [phone] [email or web address] PCP - General Internal Medicine 03/05/23 05/10/24 Hung Merchant CNP [address] [place] [address] PCP - General Nurse Practitioner 05/11/24 Pcp, Unknown 11/05/17 Mer Sellers MD [address] [place] [address] Medical Oncology 04/14/23 documented as of this encounter Additional Source Comments The information contained in this document represents components of the legal health record. It is not the complete legal health record.[facility]
--- OUTSIDE RECORDS SUMMARY | 2025-09-05 16:06 | XMS_ITS | Encounter Summary ---
Author Organization [facility] Address [address] [place] [address] Phone Care Team Providers Care Electrical Subcontractor Name Role Phone Pcp, Unknown Unavailable Unavailable Mer Sellers MD Unavailable [phone] Hung Merchant [facility] Primary Care Provider [phone] Encounter Details Date Type Department Care Team (Late st Contact Info) Description 08/31/2025 Orders Only [facility] [address] [place] [address] Provider, MD Cesilia [address] [place], [place] [id number] Social History Tobacco Use Types Packs/Day Years [...] st Contact Info) Description 05/23/2025 Procedure Pass [address] [address] 09/19/2025 9:30 AM EST Procedure visit [facility] Orthopedics & Sports Medicine [address] [place] [address] Ana Kirkpatrick MD [address] [place] [address] Orthopedics & Sports Medicine, [place] [address] 11/24/2025 10:00 AM EST Office Visit [facility] at [address] [address] Mer Sellers MD [address] [place] [address] 11/29/2025 4:00 PM EST Office Visit [facility] Family Medicine [address] [place] [address] Hung Merchant, FLORENTINO [address] [place] [address] 12/06/2025 8:15 AM EST Appointment [facility], Bone Density [address] [address] Hung Merchant CNP [address] [place] [address] 01/05/2026 10:45 AM EST Appointment [facility] [address]amm[address] [address] Mer Sellers MD [address] [place] [address] documented as of this encounter Procedures Procedure [...] documented as of this encounter Care Teams Electrical Subcontractor Relationship Specialty Start Date End Date Hung Merchant CNP [address] [place] [phone] PCP - General Nurse Practitioner 05/11/24 Pcp, Unknown 11/05/17 Mer Sellers MD [address] [place] [address] Medical Oncology 04/14/23 documented as of this encounter Additional Source Comments The information contained in this document represents components of the legal health record. It is not the complete legal health record.[facility]
--- OUTSIDE RECORDS SUMMARY | 2025-09-05 16:06 | XMS_ITS | Encounter Summary ---
Author Organization [facility] Address [address] [place] [address] [place] [address] Phone Care Team Providers Care Prison Guard Supervisor Name Role Phone Pcp, Unknown Unavailable Unavailable Duke Lopes DO Primary Care Provider [phone] Mer Sellers MD Unavailable [phone] Hung Merchant CNP Primary Care Provider [phone] Reason for Referral * MRI/CAT Scan - Closed Specialty Diagnoses / Procedures Referred By Malik brown Referred To Contact Radiology Diagnoses Pituitary lesion Procedures MRI Brain CHG MRI BRAIN COMBO Juanito Hassan MD [address] [place] [address], [address] [place] [address] Phone: tel: fax: [email or web address] Referral ID Status Reason Start Date Expiration Date Visits Re quested Visits Authorized [id number] Closed 09/10/2023 11/09/2023 1 1 Encounter Details Date Type Department Care Team (Latest Contact Info) Description 09/10/2023 Transcribe Orders Virtual Department [address] [place], [place] [phone] Juanito Hassan MD [address] [place] [address], [address] [place] [phone] [email or web address] Pituitary lesion (Primary Dx) Social History [...] st Contact Info) Description 05/23/2025 Procedure Pass [facility], [address] [address] 09/19/2025 9:30 AM EST Procedure visit [facility] Orthopedics & Sports Medicine [address] [place] [address] Ana Kirkpatrick MD [address] [place] [address] Orthopedics & Sports [place], [place] [address] 11/24/2025 10:00 AM EST Office Visit [facility] at [address] [address] Mer Sellers MD [address] [place] [address] 11/29/2025 4:00 PM EST Office Visit [facility] [address] [place] [address] Hung Merchant, FLORENTINO [address] [place] [address] [email or web address] 12/06/2025 8:15 AM EST Appointment [facility], Bone Density [address] [address] Hung Merchant, FLORENTINO [address] [place] [address] 01/05/2026 10:45 AM EST Appointment [address] [address] Mer Sellers MD [address] [place] [address] [email or web address] documented as of this encounter Results * [...] documented as of this encounter Care Teams Prison Guard Supervisor Relationship Specialty Start Date End Date Duke Lopes DO [address] [place] [address] 20 [place] [phone] [email or web address] PCP - General Internal Medicine 03/05/23 05/10/24 Hung Merchant CNP [address] [place] [address] PCP - General Nurse Practitioner 05/11/24 Pcp, Unknown 11/05/17 Mer Sellers MD [address] [place] [address] Medical Oncology 04/14/23 documented as of this encounter Additional Source Comments The information contained in this document represents components of the legal health record. It is not the complete legal health record.[facility]
--- OUTSIDE RECORDS SUMMARY | 2025-09-05 16:06 | XMS_ITS | Encounter Summary ---
Author Organization [facility] Address [address] [place] [address] [place] [address] Phone Care Team Providers Care Ophthalmology Technician Name Role Phone Pcp, Unknown Unavailable Unavailable Duke Lopes DO Primary Care Provider [phone] Mer Sellers MD Unavailable [phone] Hung Merchant MANAGER UROLOGY Primary Care Provider [phone] Encounter Details Date Type Department Care Team (Late st Contact Info) Description 05/01/2023 Procedure Pass [facility], Ct Scan - [address] [address] Social History Tobacco Use Types Packs/Day Years [...] st Contact Info) Description 05/23/2025 Procedure Pass [facility], Mammography- [address] [address] 09/19/2025 9:30 AM EST Procedure visit [facility] Orthopedics & Sports Medicine [address] [place] [address] Ana Kirkpatrick MD [address] [place] [address] Orthopedics & Sports Medicine, [facility] [place] [address] 11/24/2025 10:00 AM EST Office Visit [facility] at [address] [address] Mer Sellers MD [address] [place] [address] 11/29/2025 4:00 PM EST Office Visit [address] [address] Hung Merchant, MANAGER UROLOGY [address] [place] [address] 12/06/2025 8:15 AM EST Appointment [address] [address] Hung Merchant, MANAGER UROLOGY [address] [place] [address] 01/05/2026 10:45 AM EST Appointment [address] [address] eMr Sellers MD [address] [place] [address] documented as of this encounter Visit Diagnoses Not on filedocumented in this encounter Additional Health Concerns Assessment Noted Time PHQ-2 Depression Total Score: 0 05/31/20 21 12:36 PM EDT documented as of this encounter Care Teams Ophthalmology Technician Relationship Specialty Start Date End Date Duke Lopes DO [address] [place] [phone] [email or web address] PCP - General Internal Medicine 03/05/23 05/10/24 Hung Merchant CNP [address] [place] [email or web address] PCP - General Nurse Practitioner 05/11/24 Pcp, Unknown 11/05/17 Mer Sellers MD [address] [place] [address] Medical Oncology 04/14/23 documented as of this encounter Additional Source Comments The information contained in this document represents components of the legal health record. It is not the complete legal health record.[facility]
--- OUTSIDE RECORDS SUMMARY | 2025-09-05 16:06 | XMS_ITS | Encounter Summary ---
Author Organization [facility] Address [address] [place] [address] [place] [address] Phone Care Team Providers Care Signing Agent Name Role Phone Pcp, Unknown Unavailable Unavailable Duke Lopes DO Primary Care Provider [phone] Mer Sellers MD Unavailable [phone] Hung Merchant CNP Primary Care Provider [phone] Encounter Details Date Type Department Care Team (Late st Contact Info) Description 09/10/2023 Procedure Pass [address] [address] Social History Tobacco Use Types Packs/Day Years [...] (Late st Contact Info) Description 05/23/[address] [address] 09/19/2025 9:30 AM EST Procedure visit [facility] Orthopedics & Sports Medicine [address] [place] [address] Ana Kirkpatrick MD [address] [place] [address] Orthopedics & Sports Medicine, [place] [address] 11/24/2025 10:00 AM EST Office Visit [facility] at [address] [address] Mer Sellers MD [address] [place] [address] [email or web address] 11/29/2025 4:00 PM EST Office Visit [address] [address] Hung Merchant, SECURITIES SETTLEMENT PROCESSOR [address] [place] [address] [email or web address] 12/06/2025 8:15 AM EST Appointment [address] [address] Hung Merchant, SECURITIES SETTLEMENT PROCESSOR [address] [place] [address] 01/05/2026 10:45 AM EST Appointment [address] [address] Mer Sellers MD [address] [place] [address] documented as of this encounter Visit Diagnoses Not on filedocumented in this encounter Additional Health Concerns Assessment Noted Time PHQ-2 Depression Total Score: 0 05/31/20 21 12:36 PM EDT documented as of this encounter Care Teams Signing Agent Relationship Specialty Start Date End Date Duke Lopes DO [address] [place] [address] [phone] [email or web address] PCP - General Internal Medicine 03/05/23 05/10/24 Hung Merchant CNP [address] [place] [address] [email or web address] PCP - General Nurse Practitioner 05/11/24 Pcp, Unknown 11/05/17 Mer Sellers MD 30 [place] [address] Medical Oncology 04/14/23 documented as of this encounter Additional Source Comments The information contained in this document represents components of the legal health record. It is not the complete legal health record.[facility]
--- OUTSIDE RECORDS SUMMARY | 2025-09-05 16:06 | XMS_ITS | Encounter Summary ---
Author Organization [facility] Address [address] [place] [address] [place] [address] Phone Care Team Providers Care Content Coordinator Name Role Phone Pcp, Unknown Unavailable Unavailable Mer Sellers MD Unavailable [phone] Hung Merchant CNP Primary Care Provider [phone] Reason for Visit * Reason Comments Medication Refill Encounter Details Date Type Department Care Team (Late st Contact Info) Description 07/19/2025 Refill [facility] Family Medicine [address] [place] [address] Hung Merchant CNP [address] [place] [address] [email or web address] Medication Refill Social History Tobacco Use Types [...] Contact Info) Description 05/23/2025 Procedure Pass [address] [place] [address] 09/19/2025 9:30 AM EST Procedure visit [facility] Orthopedics & Sports Medicine [address] [place] [address] Ana Kirkpatrick MD [address] [place] [address] Orthopedics & Sports Medicine, [facility] [place] [address] 11/24/2025 10:00 AM EST Office Visit [facility] at [address] [address] Mer Sellers MD [address] [place] [phone] [email or web address] 11/29/2025 4:00 PM EST Office Visit [address] [address] Hung Merchant CNP [address] [place] [address] 12/06/2025 8:15 AM EST Appointment [facility] Bone [address] [address] Hung Merchant CNP [address] [place] [address] 01/05/2026 10:45 AM EST Appointment [address] [address] Mer Sellers MD [address] [place] [phone] [email or web address] documented as of this encounter Visit Diagnoses Diagnosis Bilateral hip pain Pain in joint, pelvic region and thigh documented in this encounter Additional Health Concerns Assessment Noted Time PHQ-2 Depression Total Score: 0 05/31/20 21 12:36 PM EDT documented as of this encounter Care Teams Content Coordinator Relationship Specialty Start Date End Date Hung Merchant CNP [address] [place] [address] [email or web address] PCP - General Nurse Practitioner 05/11/24 Pcp, Unknown 11/05/17 Mer Sellers MD [address] [place] [address] [email or web address] Medical Oncology 04/14/23 documented as of this encounter Additional Source Comments The information contained in this document represents components of the legal health record. It is not the complete legal health record.[facility]
--- OUTSIDE RECORDS SUMMARY | 2025-09-05 16:06 | XMS_ITS | Encounter Summary ---
Author Organization [facility] Address [address] [place] [address] [place] [address] Phone Care Team Providers Care Samples And Repairs Preparer Name Role Phone Pcp, Unknown Unavailable Unavailable Duke Lopes DO Primary Care Provider [phone] Mer Sellers MD Unavailable [phone] Hung Merchant DIRECTOR TRADING Primary Care Provider [phone] Encounter Details Date Type Department Care Team (Late st Contact Info) Description 05/01/2023 Procedure Pass [facility], Ct Scan - [address] [address] Social History Tobacco Use Types Packs/Day Years [...] st Contact Info) Description 05/23/2025 Procedure Pass [facility], Mammography- [address] [address] 09/19/2025 9:30 AM EST Procedure visit [facility] Orth[facility]ics & Sports Medicine [address] [place] [address] Ana Kirkpatrick MD [address] [place] [address] Orthopedics & Sports Medicine, [facility] [place] [address] 11/24/2025 10:00 AM EST Office Visit [facility] at [address] [address] Mer Sellers MD [address] [place] [address] 11/29/2025 4:00 PM EST Office Visit [address] [address] Hung Merchant, DIRECTOR TRADING [address] [place] [address] 12/06/2025 8:15 AM EST Appointment [address] [address] Hung Merchant, DIRECTOR TRADING [address] [place] [address] 01/05/2026 10:45 AM EST Appointment [address] [address] Mer Sellers MD [address] [place] [address] documented as of this encounter Visit Diagnoses Not on filedocumented in this encounter Additional Health Concerns Assessment Noted Time PHQ-2 Depression Total Score: 0 05/31/20 21 12:36 PM EDT documented as of this encounter Care Teams Samples And Repairs Preparer Relationship Specialty Start Date End Date Duke Lopes DO [address] [place] [phone] [email or web address] PCP - General Internal Medicine 03/05/23 05/10/24 Hung Merchant CNP [address] [place] [phone] [email or web address] PCP - General Nurse Practitioner 05/11/24 Pcp, Unknown 11/05/17 Mer Sellers MD [address] [place] [address] Medical Oncology 04/14/23 documented as of this encounter Additional Source Comments The information contained in this document represents components of the legal health record. It is not the complete legal health record.[facility]
--- OUTSIDE RECORDS SUMMARY | 2025-09-05 16:06 | XMS_ITS | Data Portability ---
Author Organization [facility], [employer] Address [address] [place] [phone] Care Team Providers Care Drying Unit Felting Machine Operator Name Role Phone YVONNE RANGEL Primary Care [...] (ggt), serum 2021 [facility], [address] [place], [address], 10:44:19 TSH, serum or plasma 2021 [facility], [address] [place], [address], 10:44:20 vitamin D, 25-hydroxy, total, serum 2021 [facility], [address] [place], [address], 10:44:19 lipid panel, serum 2021 [facility], [address] [place], [address], 10:44:19 CMP, serum or plasma 2021 [facility], [address] [place], [address], 10:44:20 uric acid, serum or plasma 2021 [facility], [address], [place], [address], 20:09:27 HbA1c (hemoglobin A1c), blood 2021 [facility], [address], [place], [address], 19:54:59 lipid panel, serum 2021 [facility], [address], [place], [address], 20:09:26 CBC w/ auto diff 2021 [facility], [address], [place], [address], 19:26:37 ferritin, serum or plasma 2021 [facility], [address], [place], [address], 20:12:03 CMP, serum or plasma 2021 [facility], [address], [place], [address], 20:09:23 Referral None recorded. Procedures None recorded. Surgeries None recorded. Imaging MRI, brain, w/wo contrast - Double vision, unilateral COFFEY. Recent surgical revision of adenocarcin tracy. Concern form jannet/tumor. 2021 [facility] ([facility]), [address] [facility], [place], [address], 09:35:42 XR, foot, 3 or more view - Log fell on R foot - edema, erythema forefoot. Ecchymosis resolving. r/o fracure. Fracture vs gouty arthritis R great toe. 2021 [facility] (Outpt Imaging), [address], [place], [address], 14:13:45 Medication Orders lisinopril 20 mg tablet 2021 [id number], [address], [place], [place], [id number], 12:50:47 hydrochloro thiazide 25 mg tablet 2021 [id number], [address], [place], [place], [id number], 12:50:01 colchicine 0.6 mg tablet 2021 [id number], [address], [place], [place], [id number], 09:47:48 Patient TargetsNo targets recorded. Patient InstructionsNo [...] tissue s. IMPRES MIGUEL: Normal . WSN: [id number] Orderi ng Physic daron: Yvonne Choi Dictat ed By: Sana Mason MD Dictat ed Date/T horacio: 2:10 pm Review ed By: Sana Mason MD Signed By: Sana Mason MD Signed Date/T horacio: 2:10 pm Transc ribed By: KELSY Transc ribed Date/T horacio: 2:09 pm Patien t Class: 5 [email or web address] [facility] (Outpt Imaging) [address] [place] [address], [address], 07/29/2022 14:47:29 Result Notes Documentation Provider Name and Address Organization Details Recorded Time Xr, Foot, 3 Or More View : Foot Min 3 Views Right, 3 views Reason: edema, erythema, trauma COMPARISON: None. FINDINGS: No fractures or bone lesions. No arthritic changes. Normal soft tissues. IMPRESSION: Normal. WSN: [id number] Ordering Physician: Yvonne Rangel Dictated By: Tristen [...] and Address Organization Details Recorded Time Anemia 580125573 Active 2021 Yvonne Rangel null, [place] - [facility] 11:32:16 Gout 09466558 Active 2021 Yvonne Rangel null, [place] - [facility] 2 11:41:36 Primary adenocarcin tracy of colon 3974436458636 Active 2021 [facility] [place] - [facility] 2 11:44:14 Electrolyte imbalance 567567190 Active [address] [facility], [place] - [facility] 2 11:44:52 Female urinary stress incontinenc e 52655306 Active 2021 Yvonne Claire null, [place] - [facility] 2 10:15:29 Alkaline phosphatase above reference range 449934440 Active 2021 Yvonne Claire null, [place] - [facility] 2 10:40:07 Hyperlipide jacqui 73819695 Active 2021 Yvonne Claire null, [place] - [facility] 2 10:42:21 Problem Notes None recorded. Procedures Surgical History Date Name Laterality Status Provider Name and Address Organization Details Recorded Time Colonoscopy completed Reshma Reyes [place] - [facility] 08/25/2022 11:45:18 Imaging Results None [...] Not available Not available Not available 07/29/2022 14987 8003 SNOMED Reshma Reyes [facility], [place] - [facility] 2 10:45:46 Medications Name [...] Address Organization Details Last Updated DateTime 2 55316.4 6 g 30.9 kg/m2 165.1 cm 97 % 97 % 75 /min 134/68 mm[Hg] Reshma Reyes [place] - [facility] 2 10:45:19 Date Recorded Body height Body mass index (BMI) Body weight Heart rate Oxygen saturation Oxygen saturation in Arterial blood by Pulse oximetry Systolic And Diastolic Provider Name and Address Organization Details Last Updated DateTime 2 165.1 cm 31.5 kg/m2 89205.9 6 g 76 /min 97 % 97 % 142/76 mm[Hg] Reshma Reyes [place] - [facility] 2 09:44:09 Date Recorded Body height Body mass index (BMI) Body weight Oxygen saturation Oxygen saturation in Arterial blood by Pulse oximetry Heart rate Systolic And Diastolic Provider Name and Address Organization Details Last Updated DateTime 2 165.1 cm 32 kg/m2 62463.4 4 g 98 % 98 % 84 /min 132/74 mm[Hg] Reshma Reyes [facility] 2 10:37:10 Social History [...] ICD10 Code Diagnosis IMO Codes Diagnosis Note 04203 ЮЛИЯ Benitez Main Office [address] [place] [address],[address] [place] [address] 07/29/2022 10:35:17 07/29/2022 11:54:45 Pain in right foot 8766732234 00581 M79.671 R foot injury, will investigat e with Xray - also history of gout. R great toe with marked erythema, no warmth, mild edema. Will call with results and plan Gout 98124726 M10.9 Uses colchicine prn - requested refill. Anemia 506346781 D64.9 Has been on liquid iron in the past - anemia may have resolved as it may be related to blood loss from bleeding tumor/surg leon. Will eval today. Electrolyte imbalance 10 7049326 E87.8 History of hypokalemi a - will check CMP. Also hx of CKD. Primary adenocarcinoma of colon 0180117146 [address] Garcia as planned. Diabetes m ellitus screening 585480398 Z13.1 [address] Yvonne Rangel Main Office [address] [place] [address] [address] [place] [address] 08/26/2022 09:38:16 08/26/2022 10:35:05 Diplopia 43741753 H53.2 Will get MRI - will work on getting this relatively quickly. Has appt with opthal today as well. No other neuro deficit, but does have unilateral COFFEY. Defers all other work ups at this time. Alkaline p hosphatase above reference range 325192324 R74.8 Would like to get further labs for this, but Roseanne defers at this time. Will FU with this next appt. Hyperlipidemia 49261468 E78.5 Adult heal th examination 641329903 Z00.00 Will discuss labs, mammo, dexa, PNA vaccine, and shingles vaccine next appt. She defers at this time due to concern for diploplia and headache. [address] Mago Jama NP Main Office [address] [facility],[address] [place] [address] 09/18/2022 10:27:30 09/18/2022 11:05:36 Hyperlipidemia 55435349 E78.5 Hypertensive disorder 38 362046 I10 Diplopia 96690059 H53.2 I reviewed pt's MRI and suggest we obtain a repeat study utilizing cavernous sinus protocol per radiology recommenda tions. I also recommend a consult with neuro surgery. She asks if this would be through [facility], or in [place] , and I stated no. She would not like to pursue any care through [facility] but would consider [facility], but also states I will not travel [...] Cosme Member ID Guarantor Name 09/15/2022 1 [facility] - MEDICARE ADVANTAGE PLAN (MEDICARE REPLACEMENT HMO) [id number] 1 Roseanne Ponce [id number] Roseanne Ponce Notes Date Note Type Note [...] identify eye) - had eye exam in [place]. Had eye exam and new glasses without [...] less severe left sided headches. Mago Jama, PIPELINE SYSTEMS OPERATOR [address] [facility], [facility] [address], [place], [address], [place] - [facility] 09/18/2022 13:40:37 OBGyn Episode No OBEpisode recorded.
--- OUTSIDE RECORDS SUMMARY | 2025-09-05 16:06 | XMS_ITS | Encounter Summary ---
Author Organization [facility] Address [address] [place] [address] Phone Care Team Providers Care Tube Heater Name Role Phone Pcp, Unknown Unavailable Unavailable Mer Sellers MD Unavailable [phone] Hung Merchant CNP Primary Care Provider [phone] Encounter Details Date Type Department Care Team (Late st Contact Info) Description 08/31/2024 Procedure Pass [facility], Ct Scan - [address] [address] Social History Tobacco Use Types Packs/Day Years [...] st Contact Info) Description 05/23/2025 Procedure Pass [address] [address] 09/19/2025 9:30 AM EST Procedure visit [facility] Orthopedics & Sports Medicine [address] [place] [address] Ana Kirkpatrick MD [address] [place] [address] Orthopedics & Sports Medicine, [place] [address] 11/24/2025 10:00 AM EST Office Visit [facility] at [address] [address] Mer Sellers MD [address] [place] [address] 11/29/2025 4:00 PM EST Office Visit [address] [address] Hung Merchant, [address] [place] [address] 12/06/2025 8:15 AM EST Appointment [facility], Bone Density [address] [address] Hung Merchant CNP [address] [place] [address] 01/05/2026 10:45 AM EST Appointment [address] [address] Mer Sellers MD [address] [place] [address] [email or web address] documented as of this encounter Visit Diagnoses Not on filedocumented in this encounter Additional Health Concerns Assessment Noted Time PHQ-2 Depression Total Score: 0 05/31/20 21 12:36 PM EDT documented as of this encounter Care Teams Tube Heater Relationship Specialty Start Date End Date Hung Merchant CNP [address] [place] [address] PCP - General Nurse Practitioner 05/11/24 Pcp, Unknown 11/05/17 Mer Sellers MD [address] [place] [address] Medical Oncology 04/14/23 documented as of this encounter Additional Source Comments The information contained in this document represents components of the legal health record. It is not the complete legal health record.[facility]
--- OUTSIDE RECORDS SUMMARY | 2025-09-05 16:06 | XMS_ITS | Clinical Summary ---
Author Organization [facility] Address [address] [place] [address] Phone Care Team Providers Care Map Plotter Name Role Phone Pcp, Unknown Unavailable Unavailable Mer Sellers MD Unavailable [phone] Hung Merchant CNP Primary Care Provider [phone] Allergies Active Allergy Reactions Criticality Noted Date [...] AM EDT): Following with Dr. Sellers through [facility], has CT scan scheduled 05/2025 Assessment & Plan (11/23/2024 8:23 PM EST): Sees Dr. Sellers every six months. Has repeat CT scans 05/2025 Assessment & Plan (05/12/2024 6:49 AM EDT): Following with Dr. Sellers every six months. Sees [facility], last colonoscopy 03/2023 and on 3 [...] ordered, prefers to do with labs at [facility], ordered by Dr. Harris, [...] Department Care Team Description 08/31/2025 Orders Only [facility] [address] [place] [address] ProviderCesilia MD 08/28/2025 Telephone [facility] [address] [place] [address] Hung Merchant CNP 08/28/2025 Refill [facility] [address] [place] [address] Richard Mercado MA Medication Refill 08/25/2025 Refill [facility] [address] [place] [address] Judy Becerra PA-C Medication Refill 08/24/2025 Orders Only [facility] [address] [place] [address] Hung Merchant CNP Type 2 diabetes mellitus without complication, without long-term current use of insulin; White coat syndrome with diagnosis of hypertension 08/08/2025 Refill [facility] [address] [place] [address] Darlene Lucas 08/07/2025 1:45 PM EDT Office Visit [address] [address] Hung Merchant CNP Bilateral hip pain (Primary Dx); Type 2 diabetes mellitus without complication, without long-term current use of insulin; White coat syndrome with diagnosis of hypertension; Postmenopausal; Mixed hyperlipidemia 07/31/2025 2:15 PM EDT Office Visit [facility] Orthopedics & Sports Medicine [address] [place] [address] Ana Kirkpatrick MD Primary localized osteoarthritis of left hip (Primary Dx); Pain; Primary localized osteoarthritis of right hip 07/31/2025 2:12 PM EDT - 07/31/2025 11:59 PM EDT Hospital Encounter [address] [address] Ana Kirkpatrick MD Discharge Disposition: Home or Self Care [address] [address] Hung Merchant CNP Medication Refill [address] [address] Hung Merchant CNP Medication Refill [address] [address] Hung Merchant CNP Triage (Hip pain ) [address] [address] Hung Merchant CNP 07/19/[address] [address] Hung Merchant CNP Medication Refill 07/17/[address] [address] Hung Merchant CNP Medication Refill 06/23/2025 Orders Only [facility] [address] [place] [address] Provider, MD Cesilia from Last 3 Months Immunizations Immunization Administration [...] st Contact Info) Description 05/23/2025 Procedure Pass [facility], [facility] [address] [place] [address] 09/19/2025 9:30 AM EST Procedure visit [facility] Orthopedics & Sports Medicine [address] [place] [address] Ana Kirkpatrick MD [address] [place] [address] Orthopedics & Sports Medicine, [facility] [place], [place] [id number] 11/24/2025 10:00 AM EST Office Visit [facility] at [address] [address] Mer Sellers MD [address] [place] [address] 11/29/2025 4:00 PM EST Office Visit [address] [address] Hung Merchant, SOCIAL WORKER AIDE [address] [place] [address] 12/06/2025 8:15 AM EST Appointment [address] [address] Hung Merchant, SOCIAL WORKER AIDE [address] [place] [address] 01/05/2026 10:45 AM EST Appointment [address] [address] Mer Sellers MD [address] [place] [address] Health Maintenance Due Date Last Done Comments [...] 06/23/2026 06/23/2025 DEPRESSION SCREENING 08/07/2026 08/07/2025, 06/11/20 20 CREATININE LEVEL 08/23/2026 08/23/2025, , 08/25/2024, Additional [...] current use of insulin COMPREHENSIVE METABOLIC PANEL (CMP) Routine 08/23/2025 12:06 PM EDT Type 2 [...] 06/23/2025 4:49 PM EDT COMPREHENSIVE METABOLIC PANEL (CMP) STAT 05/18/2025 9:03 AM EDT History of [...] time period is included. Blood Hung Merchant SOCIAL WORKER AIDE LAB BLOOD BKR ORDERABLES F inal Result Performing Organization Address [facility] Co de Phone Number [address] [address] * Comprehensive metabolic panel (08/23/2025 12:06 PM EDT) Only the most recent of2 resultswithin the time period is included. Blood Hung Merchant CNP LAB BLOOD BKR ORDERABLES F inal Result Performing Organization Address City/[facility]/ZIP Co de Phone Number [address] [address] * CBC (08/23/2025 12:05 PM EDT) Blood Hung Merchant SOCIAL WORKER AIDE LAB BLOOD BKR ORDERABLES F inal Result Performing Organization Address City/[facility]/ZIP Co de Phone Number [address] [address] * XR HIPS BILATERAL 1-2 VIEWS (07/31/2025 2:23 PM EDT) Narrative SYSTEMGENERATED, DOCUMENTATION - 07/31/2025 2:23 PM EDT This image report has been auto-finalized and has not been read by a Radiologist. Interpretation has been included in the provider encounter note for this date of service. us Ana Kirkpatrick MD IMG XR PELVIS Final Res ult * HM DIABETES EYE EXAM FOR RESULT ENTRY ONLY (06/23/2025 4:49 PM EDT) us Historical Provider HEALTH MAINTENANCE Edited Result - Final * Hepatitis C antibody, qualitative (10/24/2020 8:17 AM EST) HCV NON-REACTIV E NON-REACTI VE [facility] Blood 10/24/2020 8:17 AM EST 10/24/2020 8:21 AM EST us Vignesh Serrano MD LAB BLOOD BKR ORDERABLES Final Result Performing Organization Address City/[facility]/ZIP Co de Phone Number [facility] [address] [place] [address] from Last 3 Months or Most Recently Relevant to Health Maintenance Insurance [employer] RE[employer]ACEMENT [employer] REPLAC[employer] H[employer]ACEMENT [employer] REPLAC[employer] REPLACEMENT [employer] REPLACEMENT Care Teams Map Plotter Relationship Specialty Start Date End Date Hung Merchant CNP [address] [facility] [place] [address] [email or web address] PCP - General Nurse Practitioner 05/11/24 Pcp, Unknown 11/05/17 Mer Sellers MD [address] [place] [address] [email or web address] Medical Oncology 04/14/23 Additional Source Comments The information contained in this document represents components of the legal health record. It is not the complete legal health record.[facility]
--- OUTSIDE RECORDS SUMMARY | 2025-09-05 16:06 | XMS_ITS | Clinical Summary ---
Author Organization [address] [facility] Address [address] [place] [address] Phone Care Team Providers Care Fnps Name Role Phone Avtargeni Natashasukhdev Primary Care Provider [phone] Surgical History Surgery Date Site/Laterality Comments ABDOMINAL SURGERY PROCEDURE: HISTORICAL ABDOMINAL SURGERY Medical History Medical History Date Comments Headache DX:Headache Double vision DX:Double vision Essential hypertension DX:Essent ial hypertension Diabetes mellitus type 2, co ntrolled, with complications (CMS/HCC V24, CMS/HCC V28) DX:Diabetes mellitus type 2, controlled, with complications ([facility]) Social History Tobacco Use Types Packs/Day Years [...] [employer] AD[employer] Care Teams Fnps Relationship Specialty Start Date End Date Duke Lopes DO [address] [place] [phone] PCP - General 01/25/24
--- OUTSIDE RECORDS SUMMARY | 2025-09-05 16:06 | XMS_ITS | Encounter Summary ---
Author Organization [facility] Address [address] [place] [address] [place] [address] Phone Care Team Providers Care Monotype Mechanic Name Role Phone Pcp, Unknown Unavailable Unavailable Mer Sellers MD Unavailable [phone] Hung Merchant CNP Primary Care Provider [phone] Reason for Visit * Reason Onset Date Comments rx refill 03/01/2025 Encounter Details Date Type Department Care Team (Late st Contact Info) Description 03/01/[address] [facility] Medicine [address] [place] [address] Hung Merchant CNP [address] [place] [address] [email or web address] rx refill Social History Tobacco Use Types [...] 03/01/2025 Hung Merchant CNP - Family Medicine [facility] Neftali VERGARA > Requested f/u: Return in about 6 months (around 08/31/2025) for Recheck. Upcoming visit: 11/29/2025 Hung Merchant CNP - Family Medicine [facility] Neftali VERGARA ACTIONS TAKEN BY Yulissa Christopher [...] PM EDT Tramadol 50 MG send to [facility] documented in this encounter Plan of Treatment Upcoming Encounters Date Type Department Care Team (Late st Contact Info) Description 05/23/2025 Procedure Pass [address] [address] 09/19/2025 9:30 AM EST Procedure visit [facility] Orthopedics & Sports Medicine [address] [place] [address] Ana Kirkpatrick MD [address] [place] [address] Orthopedics & Sports Medicine, [place] [address] 11/24/2025 10:00 AM EST Office Visit [facility] at [address] [address] Mer Sellers MD [address] [place] [address] 11/29/2025 4:00 PM EST Office Visit [address] [address] Hung Merchant, [place] [address] [place] [address] 12/06/2025 8:15 AM EST Appointment [facility], Bone Density [address] [address] Hung Merchant CNP [address] [place] [address] 01/05/2026 10:45 AM EST Appointment [facility], Mamm[address] [address] Mer Sellers MD [address] [place] [address] documented as of this encounter Visit Diagnoses Diagnosis Bilateral hip pain Pain in joint, pelvic region and thigh documented in this encounter Additional Health Concerns Assessment Noted Time PHQ-2 Depression Total Score: 0 05/31/20 21 12:36 PM EDT documented as of this encounter Care Teams Monotype Mechanic Relationship Specialty Start Date End Date Hung Merchant CNP [address] [place] [address] PCP - General Nurse Practitioner 05/11/24 Pcp, Unknown 11/05/17 Mer Sellers MD [address] [place] [address] Medical Oncology 04/14/23 documented as of this encounter Additional Source Comments The information contained in this document represents components of the legal health record. It is not the complete legal health record.[facility]
--- OUTSIDE RECORDS SUMMARY | 2025-09-05 16:06 | XMS_ITS | Encounter Summary ---
Author Organization [facility] Address [address] [place] [address] Phone Care Team Providers Care Vendor Management Associate Name Role Phone Pcp, Unknown Unavailable Unavailable Mer Sellers MD Unavailable [phone] Hung Merchant CNP Primary Care Provider [phone] Encounter Details Date Type Department Care Team (Late st Contact Info) Description 09/28/2024 Procedure Pass [facility], [address] [id number] Social History Tobacco Use Types Packs/Day Years [...] st Contact Info) Description 05/23/2025 Procedure Pass [address] [address] 09/19/2025 9:30 AM EST Procedure visit [facility] Orthopedics & Sports Medicine [address] [place] [address] Ana Kirkpatrick MD [address] [place] [address] Orthopedics & Sports Medicine, [place] [address] 11/24/2025 10:00 AM EST Office Visit [facility] at [address] [address] Mer Sellers MD [address] [place] [address] 11/29/2025 4:00 PM EST Office Visit [address] [address] Hung Merchant, [address] [place] [address] 12/06/2025 8:15 AM EST Appointment [facility] Bone Density [address] [address] Hung Merchant CNP 29 [place] [address] 01/05/2026 10:45 AM EST Appointment [facility] Mammography[address] [address] Mer Sellers MD [address] [place] [address] documented as of this encounter Visit Diagnoses Not on filedocumented in this encounter Additional Health Concerns Assessment Noted Time PHQ-2 Depression Total Score: 0 05/31/20 21 12:36 PM EDT documented as of this encounter Care Teams Vendor Management Associate Relationship Specialty Start Date End Date Hung Merchant CNP 29 [place] [address] [email or web address] PCP - General Nurse Practitioner 05/11/24 Pcp, Unknown 11/05/17 Mer Sellers MD [address] [place] [address] Medical Oncology 04/14/23 documented as of this encounter Additional Source Comments The information contained in this document represents components of the legal health record. It is not the complete legal health record.[facility]
--- OUTSIDE RECORDS SUMMARY | 2025-09-05 16:06 | XMS_ITS | Encounter Summary ---
Author Organization [facility] Address [address] [place] [address] Phone Care Team Providers Care Instrument Person Name Role Phone Pcp, Unknown Unavailable Unavailable Mer Sellers MD Unavailable [phone] Hung Merchant CNP Primary Care Provider [phone] Reason for Visit * Reason Onset Date Comments Triage 2025 Hip pain Encounter Details Date Type Department Care Team (Late st Contact Info) Description 2025 Telephone [facility] 29 [place] [address] Hung Merchant CNP 29 [place] [address] [email or web address] Triage (Hip pain ) Social [...] Call Back Number: (if not patient, name/relationship [phone] Green Symptom(s): Triage (Hip pain ) When [...] st Contact Info) Description 05/23/2025 Procedure Pass [address] [address] 09/19/2025 9:30 AM EST Procedure visit [facility] Orthopedics [facility] Sports Medicine [address] [place] [address] Ana Kirkpatrick MD [address] [place] [address] Orthopedics & Sports Medicine, [place] [address] 11/24/2025 10:00 AM EST Office Visit [facility] at [address] [address] Mer Sellers MD [address] [place] [address] 11/29/2025 4:00 PM EST Office Visit [address] [address] Hung Merchant, PROSTHETIC AIDES TEACHER [address] [place] [address] 12/06/2025 8:15 AM EST Appointment [facility] Bone Density [address] [address] Hung Merchant, PROSTHETIC AIDES TEACHER [address] [place] [address] 01/05/2026 10:45 AM EST Appointment [address] [address] Mer Sellers MD [address] [place] [address] documented as of this encounter Visit Diagnoses Not on filedocumented in this encounter Additional Health Concerns Assessment Noted Time PHQ-2 Depression Total Score: 0 05/31/20 21 12:36 PM EDT documented as of this encounter Care Teams Instrument Person Relationship Specialty Start Date End Date Hung Merchant CNP 29 [place] [address] PCP - General Nurse Practitioner 05/11/24 Pcp, Unknown 11/05/17 Mer Sellers MD 30 [place] [address] Medical Oncology 04/14/23 documented as of this encounter Additional Source Comments The information contained in this document represents components of the legal health record. It is not the complete legal health record.[facility]
--- OUTSIDE RECORDS SUMMARY | 2025-09-05 16:06 | XMS_ITS | Encounter Summary ---
Author Organization [facility] Address [address] [place] [address] [place] [address] Phone Care Team Providers Care Nitro Man Name Role Phone Pcp, Unknown Unavailable Unavailable Duke Lopes DO Primary Care Provider Mer Sellers MD Unavailable [phone] Hung Merchant PLATEMAKER Primary Care Provider [phone] Encounter Details Date Type Department Care Team (Late st Contact Info) Description 03/01/2024 Procedure Pass , Ct Scan - [address] [address] Social History Tobacco Use Types Packs/Day Years [...] st Contact Info) Description 05/23/2025 Procedure Pass , Mammography- [facility] 30 [place] [address] 09/19/2025 9:30 AM EST Procedure visit [facility] Orthopedics & Sports Medicine [address] [place] [address] Ana Kirkpatrick MD [address] [place] [address] Orthopedics & Sports Medicine, [facility] [place] [address] 11/24/2025 10:00 AM EST Office Visit [facility] at [address] [address] Mer Sellers MD [address] [place] [address] 11/29/2025 4:00 PM EST Office Visit [address] [address] Hung Merchant, PLATEMAKER [address] [place] [address] 12/06/2025 8:15 AM EST Appointment [address] [address] Hung Merchant, PLATEMAKER [address] [place] [address] 01/05/2026 10:45 AM EST Appointment [address] [address] Mer Sellers MD [address] [place] [address] documented as of this encounter Visit Diagnoses Not on filedocumented in this encounter Additional Health Concerns Assessment Noted Time PHQ-2 Depression Total Score: 0 05/31/20 21 12:36 PM EDT documented as of this encounter Care Teams Nitro Man Relationship Specialty Start Date End Date Duke Lopes DO [address] [place] [phone] [email or web address] PCP - General Internal Medicine 03/05/23 05/10/24 Hung Merhcant CNP [address] [place] [id number] [email or web address] PCP - General Nurse Practitioner 05/11/24 Pcp, Unknown 11/05/17 Mer Sellers MD 30 [place] [address] Medical Oncology 04/14/23 documented as of this encounter Additional Source Comments The information contained in this document represents components of the legal health record. It is not the complete legal health record.[facility]
--- OUTSIDE RECORDS SUMMARY | 2025-09-05 16:06 | XMS_ITS | Encounter Summary ---
Author Organization [facility] Address [address] [place] [address] [place] [address] Phone Care Team Providers Care Accelerator Systems Director Name Role Phone Pcp, Unknown Unavailable Unavailable Mer Sellers MD Unavailable [phone] Hung Merchant CNP Primary Care Provider [phone] Reason for Visit * Reason Comments Medication Refill Encounter Details Date Type Department Care Team (Late st Contact Info) Description 07/17/2025 Refill [facility] Family Medicine 29 [place] [address] Hung Merchant CNP 29 [place] [address] [email or web address] Medication Refill Social History Tobacco Use Types [...] 03/01/2025 Hung Merchant, [place]OR[place] - Family Medicine [facility] Neftali VERGARA > Requested f/u: Return in about 6 months (around 08/31/2025) for Recheck. Upcoming visit: 11/29/2025 Hung Merchant CNP - Family [facility] Neftali [facility] ACTIONS TAKEN BY Darlene Lucas - [...] in-person visit: 03/01/2025 (Hung Merchant CNP - [facility] Neftali [facility])) Visit in past 4 months: No No benzodiazepine on medication list Opioid agreement on file: No Pain management profile/toxicology in past 12 months: No documented in this encounter Plan of Treatment Upcoming Encounters Date Type Department Care Team (Late st Contact Info) Description 05/23/2025 Procedure Pass [address] [address] 09/19/2025 9:30 AM EST Procedure visit [facility] Orthopedics & Sports Medicine [address] [place] [address] Ana Kirkpatrick MD [address] [place] [address] Orthopedics & Sports Medicine, [facility] [place] [address] 11/24/2025 10:00 AM EST Office Visit [facility] at [address] [address] Mer Sellers MD [address] [place] [address] [email or web address] 11/29/2025 4:00 PM EST Office Visit [address] [address] Hung Merchant CNP [address] [place] [address] [email or web address] 12/06/2025 8:15 AM EST Appointment [address] [address] Hung Merchant CNP [address] [place] [address] [email or web address] 01/05/2026 10:45 AM EST Appointment [address] [address] Mer Sellers MD [address] [place] [address] documented as of this encounter Visit Diagnoses Diagnosis Bilateral hip pain Pain in joint, pelvic region and thigh documented in this encounter Additional Health Concerns Assessment Noted Time PHQ-2 Depression Total Score: 0 05/31/20 21 12:36 PM EDT documented as of this encounter Care Teams Accelerator Systems Director Relationship Specialty Start Date End Date Hung Merchant, FLORENTINO [address] [place] [email or web address] PCP - General Nurse Practitioner 05/11/24 Pcp, Unknown 11/05/17 Mer Sellers MD [address] [place] [address] [email or web address] Medical Oncology 04/14/23 documented as of this encounter Additional Source Comments The information contained in this document represents components of the legal health record. It is not the complete legal health record.[facility]
--- OUTSIDE RECORDS SUMMARY | 2025-09-05 16:06 | XMS_ITS | Encounter Summary ---
Author Organization [facility] Address [address] [place] [address] Phone Care Team Providers Care Medical Front Desk Coordinator Name Role Phone Pcp, Unknown Unavailable Unavailable Mer Sellers MD Unavailable [phone] Hung Merchant CNP Primary Care Provider [phone] Encounter Details Date Type Department Care Team (Late st Contact Info) Description 08/31/2024 Procedure Pass [facility], Ct Scan - [address] [address] Social History Tobacco Use Types Packs/Day Years [...] Contact Info) Description 05/23/2025 Procedure Pass [address] [address] 09/19/2025 9:30 AM EST Procedure visit [facility] Orthopedics & Sports Medicine [address] [place] [address] Ana Kirkpatrick MD [address] [place] [address] Orthopedics & Sports Medicine, [place] [address] 11/24/2025 10:00 AM EST Office Visit [facility] at [address] [address] Mer Sellers MD [address] [place] [address] 11/29/2025 4:00 PM EST Office Visit [address] [address] Hung Merchant, [address] [place] [address] 12/06/2025 8:15 AM EST Appointment [facility], Bone Density [address] [address] Hung Merchant CNP 29 [place] [address] 01/05/2026 10:45 AM EST Appointment [address] [address] Mer Sellers MD [address] [place] [address] documented as of this encounter Visit Diagnoses Not on filedocumented in this encounter Additional Health Concerns Assessment Noted Time PHQ-2 Depression Total Score: 0 05/31/20 21 12:36 PM EDT documented as of this encounter Care Teams Medical Front Desk Coordinator Relationship Specialty Start Date End Date Hung Merchant CNP 29 [place] [address] PCP - General Nurse Practitioner 05/11/24 Pcp, Unknown 11/05/17 Mer Sellers MD [address] [place] [address] Medical Oncology 04/14/23 documented as of this encounter Additional Source Comments The information contained in this document represents components of the legal health record. It is not the complete legal health record.[facility]
--- OUTSIDE RECORDS SUMMARY | 2025-09-05 16:06 | XMS_ITS | Encounter Summary ---
Author Organization [facility] Address [address] [place] [address] Phone Care Team Providers Care Cell Room Operator Name Role Phone Pcp, Unknown Unavailable Unavailable Mer Sellers MD Unavailable [phone] Hung Merchant CNP Primary Care Provider [phone] Encounter Details Date Type Department Care Team (Late st Contact Info) Description 2025 Telephone [facility] 29 [place] [address] Hung Merchant, FLORENTINO 29 [place] [address] [email or web address] Social History Tobacco Use Types Packs/Day Years [...] Contact Info) Description 05/23/2025 Procedure Pass [address] [address] 09/19/2025 9:30 AM EST Procedure visit [facility] Orthopedics & Sports Medicine [address] [address] Ana Kirkpatrick MD [address] [place] [address] Orthopedics & Sports [place], [place] [address] 11/24/2025 10:00 AM EST Office Visit [facility] at [address] [address] Mer Sellers MD [address] [place] [address] 11/29/2025 4:00 PM EST Office Visit [address] [address] Hung Merchant CNP 29 [place] [address] [email or web address] 12/06/2025 8:15 AM EST Appointment [facility] Bone Density [address] [address] Hung Merchant CNP [address] [place] [email or web address] 01/05/2026 10:45 AM EST Appointment [address] [address] Mer Sellers MD [address] [place] [address] [email or web address] documented as of this encounter Visit Diagnoses Not on filedocumented in this encounter Additional Health Concerns Assessment Noted Time PHQ-2 Depression Total Score: 0 05/31/20 21 12:36 PM EDT documented as of this encounter Care Teams Cell Room Operator Relationship Specialty Start Date End Date Hung Merchant CNP [address] [place] [phone] [email or web address] PCP - General Nurse Practitioner 05/11/24 Pcp, Unknown 11/05/17 Mre Sellers MD [address] [place] [phone] [email or web address] Medical Oncology 04/14/23 documented as of this encounter Additional Source Comments The information contained in this document represents components of the legal health record. It is not the complete legal health record.[facility]
--- OUTSIDE RECORDS SUMMARY | 2025-09-05 16:06 | XMS_ITS | Encounter Summary ---
Author Organization [facility] Address [address] [place] [address] [place] [address] Phone Care Team Providers Care Staple Cutter Name Role Phone Pcp, Unknown Unavailable Unavailable Duke Lopes DO Primary Care Provider [phone] Mer Sellers MD Unavailable [phone] Hung Merchant CNP Primary Care Provider [phone] Encounter Details Date Type Department Care Team (Late st Contact Info) Description 05/01/2023 Procedure Pass [address] [address] Social History Tobacco Use Types Packs/Day Years [...] (Late st Contact Info) Description 05/23/[address] [address] 09/19/2025 9:30 AM EST Procedure visit [facility] Orthopedics & Sports Medicine [address] [place] [address] Ana Kirkpatrick MD [address] [place] [address] Orthopedics & Sports Medicine, [facility] [place] [address] 11/24/2025 10:00 AM EST Office Visit [facility] at [address] [address] Mer Sellers MD [address] [place] [address] 11/29/2025 4:00 PM EST Office Visit [address] [address] Hung Merchant, WESTERN PHILOSOPHY PROFESSOR [address] [place] [email or web address] 12/06/2025 8:15 AM EST Appointment [address] [address] Hung Merchant, WESTERN PHILOSOPHY PROFESSOR [address] [place] [address] 01/05/2026 10:45 AM EST Appointment [address] [address] Mer Sellers MD [address] [place] [address] documented as of this encounter Visit Diagnoses Not on filedocumented in this encounter Additional Health Concerns Assessment Noted Time PHQ-2 Depression Total Score: 0 05/31/20 21 12:36 PM EDT documented as of this encounter Care Teams Staple Cutter Relationship Specialty Start Date End Date Duke Lopes DO [address] [place] [phone] [email or web address] PCP - General Internal Medicine 03/05/23 05/10/24 Hung Merchant CNP [address] [place] [phone] [email or web address] PCP - General Nurse Practitioner 05/11/24 Pcp, Unknown 11/05/17 Mer Sellers MD 30 [place] [address] Medical Oncology 04/14/23 documented as of this encounter Additional Source Comments The information contained in this document represents components of the legal health record. It is not the complete legal health record.[facility]
--- OUTSIDE RECORDS SUMMARY | 2025-09-05 16:06 | XMS_ITS | Encounter Summary ---
Author Organization [facility] Address [address] [facility] [address] [place] [address] Phone Care Team Providers Care Protective Service Specialist Name Role Phone Pcp, Unknown Unavailable Unavailable Mer Sellers MD Unavailable [phone] Hung Merchant CNP Primary Care Provider [phone] Encounter Details Date Type Department Care Team (Late st Contact Info) Description 08/24/2025 Orders Only [facility] 29 [place], [place] [phone] Hung Merchant, FLORENTINO 29 [place] [address] [email or web address] Type 2 diabetes mellitus without complication, without [...] st Contact Info) Description 05/23/2025 Procedure Pass [address] [address] 09/19/2025 9:30 AM EST Procedure visit [facility] Orthopedics & Sports Medicine [address] [place] [address] Ana Kirkpatrick MD [address] [place] [address] Orthopedics & Sports Medicine, [facility] [place] [address] 11/24/2025 10:00 AM EST Office Visit [facility] at [address] [address] Mer Sellers MD [address] [place] [address] [email or web address] 11/29/2025 4:00 PM EST Office Visit [address] [address] Hung Merchant, VEGETABLE FARM WORKER [address] [place] [address] 12/06/2025 8:15 AM EST Appointment [address] [address] Hung Merchant, FLORENTINO [address] [place] [address] [email or web address] 01/05/2026 10:45 AM EST Appointment [address] [address] Mer Sellers MD [address] [place] [address] documented as of this encounter Procedures Procedure [...] A1c (08/23/2025 12:06 PM EDT) Blood Hung Carol Mayur VEGETABLE FARM WORKER LAB BLOOD BKR ORDERABLES F inal Result Performing Organization Address [facility] Co de Phone Number [address] [address] * Comprehensive metabolic panel (08/23/2025 12:06 PM EDT) Blood Hungisaac Medina Mayur VEGETABLE FARM WORKER LAB BLOOD BKR ORDERABLES F inal Result Performing Organization Address [facility] Co de Phone Number [address] [address] * CBC (08/23/2025 12:05 PM EDT) Blood Hung Caroleliana Merchant [facility] LAB BLOOD BKR ORDERABLES F inal Result Performing Organization Address [facility] de Phone Number [address] [address] documented in this encounter Visit Diagnoses Diagnosis Type 2 diabetes mellitus without complication, without long-term current use of insulin White coat syndrome with diagnosis of hypertension documented in this encounter Additional Health Concerns Assessment Noted Time PHQ-2 Depression Total Score: 0 08/07/20 25 1:50 PM EDT documented as of this encounter Care Teams Protective Service Specialist Relationship Specialty Start Date End Date Hung Merchant CNP [address] [place] [address] [place] [address] PCP - General Nurse Practitioner 05/11/24 Pcp, Unknown 11/05/17 Mer Sellers MD [address] [place] [address] Medical Oncology 04/14/23 documented as of this encounter Additional Source Comments The information contained in this document represents components of the legal health record. It is not the complete legal health record.[facility]
== END 2025-09-05 14:04 | disposition home or self-care (01) ==
LOC: HO.HVS 13:09
PROVIDERS: Visit Provider Surgery Vascular Surgery
DX: I72.3 Aneurysm of iliac artery (principal)
CPT/HCPCS: 99214; G2211

== ENCOUNTER 2025-09-13 07:41 | Day surgery (SDC) | payer OTHER, SELFPAY ==
--- OUTSIDE RECORDS SUMMARY | 2025-09-12 07:05 | XMS_ITS | Encounter Summary ---
Author Organization [facility] Address [address] [place] [address] [place] [address] Phone Care Team Providers Care Industrial Gas Servicer Helper Name Role Phone Pcp, Unknown Unavailable Unavailable Duke Lopes DO Primary Care Provider [phone] Mer Sellers MD Unavailable [phone] Hung Merchant INDUSTRY ANALYST Primary Care Provider [phone] Encounter Details Date Type Department Care Team (Late st Contact Info) Description 03/01/2024 Procedure Pass [facility], Ct Scan - [address] [address] Social History Tobacco Use Types Packs/Day Years [...] st Contact Info) Description 05/23/2025 Procedure Pass [facility], Mammography- [facility] 30 [place] [address] 09/19/2025 9:30 AM EST Procedure visit [facility] Orthopedics & Sports Medicine [address] [place] [address] Ana Kirkpatrick MD [address] [place] [address] Orthopedics & Sports Medicine, [facility] [place] [address] 11/24/2025 10:00 AM EST Office Visit [facility] at [address] [address] Mer Sellers MD [address] [place] [address] 11/29/2025 4:00 PM EST Office Visit [address] [address] Hung Merchant, INDUSTRY ANALYST [address] [place] [address] 12/06/2025 8:15 AM EST Appointment [address] [address] Hung Merchant, INDUSTRY ANALYST [address] [place] [address] 01/05/2026 10:45 AM EST Appointment [address] [address] Mer Sellers MD [address] [place] [address] documented as of this encounter Visit Diagnoses Not on filedocumented in this encounter Additional Health Concerns Assessment Noted Time PHQ-2 Depression Total Score: 0 05/31/20 21 12:36 PM EDT documented as of this encounter Care Teams Industrial Gas Servicer Helper Relationship Specialty Start Date End Date Duke Lopes DO [address] [place] [phone] [email or web address] PCP - General Internal Medicine 03/05/23 05/10/24 Hung Merchant CNP [address] [place] [address] [email or web address] PCP - General Nurse Practitioner 05/11/24 Pcp, Unknown 11/05/17 Mer Sellers MD 30 [place] [address] Medical Oncology 04/14/23 documented as of this encounter Additional Source Comments The information contained in this document represents components of the legal health record. It is not the complete legal health record.[facility]
--- OUTSIDE RECORDS SUMMARY | 2025-09-12 07:05 | XMS_ITS | Encounter Summary ---
Author Organization [facility] Address [address] [place] [address] [place] [address] Phone Care Team Providers Care Samples And Repairs Preparer Name Role Phone Pcp, Unknown Unavailable Unavailable Mer Sellers MD Unavailable [phone] Hung Merchant CNP Primary Care Provider [phone] Reason for Visit * Reason Comments Medication Refill Encounter Details Date Type Department Care Team (Late st Contact Info) Description 07/17/2025 Refill [facility] Family Medicine 29 [place] [address] Hung Merchant CNP 29 [place] [address] [email or web address] Medication Refill Social History [...] 03/01/2025 Hung Merchant, FLORENTINO - Family Medicine [facility] Neftali VERGARA > Requested f/u: Return in about 6 months (around 08/31/2025) for Recheck. Upcoming visit: 11/29/2025 Hung Merchant CNP - [facility] Ne[facility]ali [facility] ACTIONS TAKEN BY Darlene Lucas - [...] in-person visit: 03/01/2025 (Hung Merchant CNP - [facility] Neftali [facility])) Visit in past 4 months: No No benzodiazepine on medication list Opioid agreement on file: No Pain management profile/toxicology in past 12 months: No documented in this encounter Plan of Treatment Upcoming Encounters Date Type Department Care Team (Late st Contact Info) Description 05/23/2025 Procedure Pass [address] [address] 09/19/2025 9:30 AM EST Procedure visit [facility] Orthopedics & Sports Medicine [address] [place] [address] Ana Kirkpatrick MD [address] [place] [address] Orthopedics & Sports Medicine, [facility] [place] [address] 11/24/2025 10:00 AM EST Office Visit [facility] at [address] [address] Mer Sellers MD [address] [place] [address] 11/29/2025 4:00 PM EST Office Visit [address] [address] Hung Merchant CNP [address] [place] [address] 12/06/2025 8:15 AM EST Appointment [address] [address] Hung Merchant CNP [address] [place] [address] 01/05/2026 10:45 AM EST Appointment [address] [address] Mer Sellers MD [address] [place] [address] [email or web address] documented as of this encounter Visit Diagnoses Diagnosis Bilateral hip pain Pain in joint, pelvic region and thigh documented in this encounter Additional Health Concerns Assessment Noted Time PHQ-2 Depression Total Score: 0 05/31/20 21 12:36 PM EDT documented as of this encounter Care Teams Samples And Repairs Preparer Relationship Specialty Start Date End Date Hung Merchant, FLORENTINO [address] [place] [address] [email or web address] PCP - General Nurse Practitioner 05/11/24 Pcp, Unknown 11/05/17 Mer Sellers MD [address] [place] [address] [email or web address] Medical Oncology 04/14/23 documented as of this encounter Additional Source Comments The information contained in this document represents components of the legal health record. It is not the complete legal health record.[facility]
--- OUTSIDE RECORDS SUMMARY | 2025-09-12 07:05 | XMS_ITS | Encounter Summary ---
Author Organization [facility] Address [address] [place] [address] [place] [address] Phone Care Team Providers Care Air Bag Curer Name Role Phone Pcp, Unknown Unavailable Unavailable Duke Lopes DO Primary Care Provider [phone] Mer Sellers MD Unavailable [phone] Hung Merchant HEEL VARNISHER Primary Care Provider [phone] Encounter Details Date Type Department Care Team (Late st Contact Info) Description 05/01/2023 Procedure Pass [facility], Ct Scan - [address] [address] Social History Tobacco Use Types Packs/Day Years [...] st Contact Info) Description 05/23/2025 Procedure Pass [facility], Mammography- [address] [address] 09/19/2025 9:30 AM EST Procedure visit [facility] Orthopedics & Sports Medicine [address] [place] [address] Ana Kirkpatrick MD [address] [place] [address] Orthopedics & Sports Medicine, [facility] [place] [address] 11/24/2025 10:00 AM EST Office Visit [facility] at [address] [address] Mer Sellers MD [address] [place] [address] 11/29/2025 4:00 PM EST Office Visit [address] [address] Hung Merchant, HEEL VARNISHER [address] [place] [address] 12/06/2025 8:15 AM EST Appointment [address] [address] Hung Merchant, HEEL VARNISHER [address] [place] [address] 01/05/2026 10:45 AM EST Appointment [address] [address] Mre Sellers MD [address] [place] [address] [email or web address] documented as of this encounter Visit Diagnoses Not on filedocumented in this encounter Additional Health Concerns Assessment Noted Time PHQ-2 Depression Total Score: 0 05/31/20 21 12:36 PM EDT documented as of this encounter Care Teams Air Bag Curer Relationship Specialty Start Date End Date Duke Lopes DO [address] [place] [phone] [email or web address] PCP - General Internal Medicine 03/05/23 05/10/24 Hung Merchant CNP [address] [place] [address] [email or web address] PCP - General Nurse Practitioner 05/11/24 Pcp, Unknown 11/05/17 Mer Sellers MD 30 [place] [address] [email or web address] Medical Oncology 04/14/23 documented as of this encounter Additional Source Comments The information contained in this document represents components of the legal health record. It is not the complete legal health record.[facility]
--- OUTSIDE RECORDS SUMMARY | 2025-09-12 07:05 | XMS_ITS | Encounter Summary ---
Author Organization [facility] Address [address] [place] [address] [place] [address] Phone Care Team Providers Care Color Checker Name Role Phone Pcp, Unknown Unavailable Unavailable Duke Lopes DO Primary Care Provider [phone] Mer Sellers MD Unavailable [phone] Hung Merchant CNP Primary Care Provider [phone] Reason for Referral * MRI/CAT Scan - Closed Specialty Diagnoses / Procedures Referred By Malik brown Referred To Contact Radiology Diagnoses Pituitary lesion Procedures MRI Brain CHG MRI BRAIN COMBO Juanito Hassan MD [address] [place] [address], [address] [place] [address] Phone: tel: fax: [email or web address] Referral ID Status Reason Start Date Expiration Date Visits Re quested Visits Authorized [id number] Closed 09/10/2023 11/09/2023 1 1 Encounter Details Date Type Department Care Team (Latest Contact Info) Description 09/10/2023 Transcribe Orders Virtual Department 30 [place], [place] [phone] Juanito Hassan MD [address] [place] [address], [address] [place] [phone] [email or web address] Pituitary lesion (Primary Dx) Social History [...] st Contact Info) Description 05/23/2025 Procedure Pass [facility], [address] [address] 09/19/2025 9:30 AM EST Procedure visit [facility] Orthopedics & Sports Medicine [address] [place] [address] Ana Kirkpatrick MD [address] [place] [address] Orthopedics & [place], [place] [address] 11/24/2025 10:00 AM EST Office Visit [facility] at [address] [address] Mer Sellers MD [address] [place] [address] 11/29/2025 4:00 PM EST Office Visit [facility] 29 [place] [address] Hung Merchant, FLORENTINO 29 [place] [address] 12/06/2025 8:15 AM EST Appointment [facility], [facility] Density [address] [address] Hung Merchant, FLORENTINO 29 [place] [address] 01/05/2026 10:45 AM EST Appointment [address] [address] Mer Sellers MD 30 [place] [address] [email or web address] documented as of this encounter Results * [...] documented as of this encounter Care Teams Color Checker Relationship Specialty Start Date End Date Duke Lopes DO [address] [place] [address] 20 [place] [address] [email or web address] PCP - General Internal Medicine 03/05/23 05/10/24 Hung Merchant CNP 29 [place] [address] PCP - General Nurse Practitioner 05/11/24 Pcp, Unknown 11/05/17 Mer Sellers MD 30 [place] [address] Medical Oncology 04/14/23 documented as of this encounter Additional Source Comments The information contained in this document represents components of the legal health record. It is not the complete legal health record.[facility]
--- OUTSIDE RECORDS SUMMARY | 2025-09-12 07:05 | XMS_ITS | Encounter Summary ---
Author Organization [facility] Address [address] [place] [address] Phone Care Team Providers Care Curing Finisher Name Role Phone Pcp, Unknown Unavailable Unavailable Mer Sellers MD Unavailable [phone] Hung Merchant CNP Primary Care Provider [phone] Encounter Details Date Type Department Care Team (Late st Contact Info) Description 2025 Telephone [employer] [facility] 29 [place] [address] Hung Merchant, FLORENTINO 29 [place] [address] [email or web address] Social History Tobacco Use Types Packs/Day Years [...] st Contact Info) Description 05/23/2025 Procedure Pass [address] [address] 09/19/2025 9:30 AM EST Procedure visit [facility] Orthopedics & Sports Medicine [address] [place] [address] Ana Kirkpatrick MD [address] [place] [address] Orthopedics & [place] [address] 11/24/2025 10:00 AM EST Office Visit [facility] at [address] [address] Mer Sellers MD [address] [place] [address] 11/29/2025 4:00 PM EST Office Visit [address] [address] Hung Merchant CNP 29 [place] [address] 12/06/2025 8:15 AM EST Appointment [facility] [address] [address] Hung Merchant CNP [address] [place] [address] 01/05/2026 10:45 AM EST Appointment [address] [address] Mer Sellers MD [address] [place] [address] documented as of this encounter Visit Diagnoses Not on filedocumented in this encounter Additional Health Concerns Assessment Noted Time PHQ-2 Depression Total Score: 0 05/31/20 21 12:36 PM EDT documented as of this encounter Care Teams Curing Finisher Relationship Specialty Start Date End Date Hung Merchant CNP [address] [place] [address] PCP - General Nurse Practitioner 05/11/24 Pcp, Unknown 11/05/17 Mer Sellers MD [address] [place] [address] Medical Oncology 04/14/23 documented as of this encounter Additional Source Comments The information contained in this document represents components of the legal health record. It is not the complete legal health record.[facility]
--- OUTSIDE RECORDS SUMMARY | 2025-09-12 07:05 | XMS_ITS | Encounter Summary ---
Author Organization [facility] Address [address] [place] [address] [place] [address] Phone Care Team Providers Care Laboratory Coordinator Name Role Phone Pcp, Unknown Unavailable Unavailable Duke Lopes DO Primary Care Provider [phone] Mer Sellers MD Unavailable [phone] Hung Merchant CNP Primary Care Provider [phone] Encounter Details Date Type Department Care Team (Late st Contact Info) Description 09/10/2023 Procedure Pass [address] [address] Social History Tobacco Use Types Packs/Day Years [...] (Late st Contact Info) Description 05/23/[address] [address] 09/19/2025 9:30 AM EST Procedure visit [facility] Orthopedics & Sports Medicine [address] [place] [address] Ana Kirkpatrick MD [address] [place] [address] Orthopedics & Sports Medicine, [facility] [place] [address] 11/24/2025 10:00 AM EST Office Visit [facility] at [address] [address] Mer Sellers MD [address] [place] [address] 11/29/2025 4:00 PM EST Office Visit [address] [place] [address] [address] Hung Merchant, INVASIVE PHYSICIAN [address] [place] [address] [email or web address] 12/06/2025 8:15 AM EST Appointment [address] [address] Hung Merchant, INVASIVE PHYSICIAN [address] [place] [address] 01/05/2026 10:45 AM EST Appointment [address] [address] Mer Sellers MD [address] [place] [address] documented as of this encounter Visit Diagnoses Not on filedocumented in this encounter Additional Health Concerns Assessment Noted Time PHQ-2 Depression Total Score: 0 05/31/20 21 12:36 PM EDT documented as of this encounter Care Teams Laboratory Coordinator Relationship Specialty Start Date End Date Duke Lopes DO [address] [place] [phone] [email or web address] PCP - General Internal Medicine 03/05/23 05/10/24 Hung Merchant CNP [address] [place] [address] PCP - General Nurse Practitioner 05/11/24 Pcp, Unknown 11/05/17 Mer Sellers MD 30 [place] [address] Medical Oncology 04/14/23 documented as of this encounter Additional Source Comments The information contained in this document represents components of the legal health record. It is not the complete legal health record.[facility]
--- OUTSIDE RECORDS SUMMARY | 2025-09-12 07:05 | XMS_ITS | Encounter Summary ---
Author Organization [facility] Address [address] [place] [address] Phone Care Team Providers Care Line Patroller Name Role Phone Pcp, Unknown Unavailable Unavailable Mer Sellers MD Unavailable [phone] Hung Merchant [facility] Primary Care Provider [phone] Reason for Referral * MRI/CAT Scan - Closed Specialty Diagnoses / Procedures Referred By Contac t Referred To Contact Radiology Diagnoses Meningioma Brain mass Procedures MRI Brain CHG MRI BRAIN COMBO Roxanne Hansen PA [address] [place] [address] Phone: tel: fax: Referral ID Status Reason Start Date Expiration Date Visits Re quested Visits Authorized [id number] Closed 09/28/2024 11/26/2024 1 1 Encounter Details Date Type Department Care Team (Latest Contact Info) Description 09/28/2024 Transcribe Orders Virtual Department 30 [place] [address] Roxanne Hansen PA [address] [place] [address] Meningioma (Primary Dx); Brain mass Social History [...] Contact Info) Description 05/23/2025 Procedure Pass [address] [address] 09/19/2025 9:30 AM EST Procedure visit [facility] Orthopedics & Sports Medicine [address] [place] [address] Ana Kirkpatrick MD [address] [place] [address] Orthopedics & Sports [place], [place] [address] 11/24/2025 10:00 AM EST Office Visit [facility] at [address] [address] Mer Sellers MD [address] [place] [address] 11/29/2025 4:00 PM EST Office Visit [address] [address] Hung Merchant, PATIENT COORDINATOR [address] [place] [address] 12/06/2025 8:15 AM EST Appointment [address] [address] Hung Merchant, PATIENT COORDINATOR [address] [place] [address] [email or web address] 01/05/2026 10:45 AM EST Appointment [address] [address] Mer Sellers MD [address] [place] [address] documented as of this encounter Results * [...] clinician's provided indication for this examination in [facility]:Outside Radiology Order; meningioma TECHNIQUE: Multi-sequence, multi-planar MRI [...] as of this encounter Care Teams Line Patroller Relationship Specialty Start Date End Date Hung Merchant CNP 29 [place] [address] PCP - General Nurse Practitioner 05/11/24 Pcp, Unknown 11/05/17 Mer Sellers MD [address] [place] [address] Medical Oncology 04/14/23 documented as of this encounter Additional Source Comments The information contained in this document represents components of the legal health record. It is not the complete legal health record.[facility]
--- OUTSIDE RECORDS SUMMARY | 2025-09-12 07:05 | XMS_ITS | Encounter Summary ---
Author Organization [facility] Address [address] [place] [address] [place] [address] Phone Care Team Providers Care Donor Specialist Name Role Phone Pcp, Unknown Unavailable Unavailable Duke Lopes DO Primary Care Provider [phone] Mer Sellers MD Unavailable [phone] Hung Merchant THEATRE ARTS PROFESSOR Primary Care Provider [phone] Encounter Details Date Type Department Care Team (Late st Contact Info) Description 03/01/2024 Procedure Pass [facility], Ct Scan - [address] [address] Social History Tobacco Use Types Packs/Day Years [...] st Contact Info) Description 05/23/2025 Procedure Pass [facility], Mammography- [facility] [address] [place] [address] 09/19/2025 9:30 AM EST Procedure visit [facility] Orthopedics & Sports Medicine [address] [place] [address] Ana Kirkpatrick MD [address] [place] [address] Orthopedics & Sports Medicine, [place] [address] 11/24/2025 10:00 AM EST Office Visit [facility] at [address] [address] Mer Sellers MD [address] [place] [address] 11/29/2025 4:00 PM EST Office Visit [address] [address] Hung Merchant, THEATRE ARTS PROFESSOR [address] [place] [address] 12/06/2025 8:15 AM EST Appointment [address] [address] Hung Merchant, THEATRE ARTS PROFESSOR [address] [place] [address] 01/05/2026 10:45 AM EST Appointment [address] [address] Mer Sellers MD [address] [place] [address] [email or web address] documented as of this encounter Visit Diagnoses Not on filedocumented in this encounter Additional Health Concerns Assessment Noted Time PHQ-2 Depression Total Score: 0 05/31/20 21 12:36 PM EDT documented as of this encounter Care Teams Donor Specialist Relationship Specialty Start Date End Date Duke Lopes DO [address] [place] [phone] [email or web address] PCP - General Internal Medicine 03/05/23 05/10/24 Hung Merchant CNP [address] [place] [email or web address] PCP - General Nurse Practitioner 05/11/24 Pcp, Unknown 11/05/17 Mer Sellers MD 30 [place] [address] Medical Oncology 04/14/23 documented as of this encounter Additional Source Comments The information contained in this document represents components of the legal health record. It is not the complete legal health record.[facility]
--- OUTSIDE RECORDS SUMMARY | 2025-09-12 07:05 | XMS_ITS | Encounter Summary ---
Author Organization [facility] Address [address] [place] [address] [place] [address] Phone Care Team Providers Care Cloth Sander Name Role Phone Pcp, Unknown Unavailable Unavailable Duke Lopes DO Primary Care Provider [phone] Mer Sellers MD Unavailable [phone] Hung Merchant CNP Primary Care Provider [phone] Encounter Details Date Type Department Care Team (Late st Contact Info) Description 05/01/2023 Procedure Pass [address] [address] Social History Tobacco Use Types Packs/Day Years [...] (Late st Contact Info) Description 05/23/[address] [address] 09/19/2025 9:30 AM EST Procedure visit [facility] Orthopedics & Sports Medicine [address] [place] [address] Ana Kirkpatrick MD [address] [place] [address] Orthopedics & Sports Medicine, [facility] [place] [address] 11/24/2025 10:00 AM EST Office Visit [facility] at [address] [address] Mer Sellers MD [address] [place] [address] [email or web address] 11/29/2025 4:00 PM EST Office Visit [address] [address] Hung Merchant, PROJECT FINANCIAL ANALYST [address] [place] [address] 12/06/2025 8:15 AM EST Appointment [address] [address] Hung Merchant, PROJECT FINANCIAL ANALYST [address] [place] [address] 01/05/2026 10:45 AM EST Appointment [address] [address] Mer Sellers MD [address] [place] [address] documented as of this encounter Visit Diagnoses Not on filedocumented in this encounter Additional Health Concerns Assessment Noted Time PHQ-2 Depression Total Score: 0 05/31/20 21 12:36 PM EDT documented as of this encounter Care Teams Cloth Sander Relationship Specialty Start Date End Date Duke Lopes DO [address] [place] [phone] [email or web address] PCP - General Internal Medicine 03/05/23 05/10/24 Hung Merchant CNP [address] [place] [address] [email or web address] PCP - General Nurse Practitioner 05/11/24 Pcp, Unknown 11/05/17 Mer Sellers MD 30 [place] [address] Medical Oncology 04/14/23 documented as of this encounter Additional Source Comments The information contained in this document represents components of the legal health record. It is not the complete legal health record.[facility]
--- OUTSIDE RECORDS SUMMARY | 2025-09-12 07:05 | XMS_ITS | Clinical Summary ---
Author Organization [facility] Address [address] [place] [address] Phone Care Team Providers Care Credit Administrator Name Role Phone Pcp, Unknown Unavailable Unavailable Mer Sellers MD Unavailable [phone] Hung Merchant CNP Primary Care Provider [phone] Allergies Active Allergy Reactions Criticality Noted Date [...] MOUTH DAILY 90 tablet 025 2024 Discontinued hydroCHLOROthiazi de 25 MG tablet [...] HCP/will. Immunizations reviewed and will confirm with [facility] for what she is due for as that is where she gets them done. Plan for recheck in 3 months, aware to follow- up sooner if needed Female stress incontinence 08/26/2022 High alkaline phosphatase 08/26/2022 History of colon cancer 07/29/2022 Assessment & Plan (03/02/2025 9:58 AM EDT): Following with Dr. Sellers through [facility], has CT scan scheduled 05/2025 Assessment & Plan (11/23/2024 8:23 PM EST): Sees Dr. Sellers every six months. Has repeat CT scans 05/2025 Assessment & Plan (05/12/2024 6:49 AM EDT): Following with Dr. Sellers every six months. Sees [facility], last colonoscopy 03/2023 and on 3 [...] ordered, prefers to do with labs at [facility], ordered by Dr. Harris, orders printed/provided for [...] Department Care Team Description 08/31/2025 Orders Only [facility] [address] [place] [address] ProviderCesilia MD 08/28/[address] [address] Hung Merchant CNP 08/28/[address] [address] Richard Mercado PR Medication Refill 08/25/[address] [address] Judy Becerra PA-C Medication Refill 08/24/2025 Orders Only [facility] [address] [place] [address] Hung Merchant CNP Type 2 diabetes mellitus without complication, without long-term current use of insulin; White coat syndrome with diagnosis of hypertension 08/08/[address] [address] Darlene Lucas 08/07/2025 1:45 PM EDT Office Visit [address] [address] Hung Merchant CNP Bilateral hip pain (Primary Dx); Type 2 diabetes mellitus without complication, without long-term current use of insulin; White coat syndrome with diagnosis of hypertension; Postmenopausal; Mixed hyperlipidemia 07/31/2025 2:15 PM EDT Office Visit [facility] Orthopedics & Sports Medicine [address] [place] [address] Ana Kirkpatrick MD Primary localized osteoarthritis of left hip (Primary Dx); Pain; Primary localized osteoarthritis of right hip 07/31/2025 2:12 PM EDT - 07/31/2025 11:59 PM EDT Hospital Encounter [address] [address] Ana Kirkpatrick MD Discharge Disposition: Home or Self Care [address] [address] Hung Merchant CNP Medication Refill [address] [address] Hung Merchant CNP Medication Refill [address] [address] Hung Merchant CNP Triage (Hip pain ) [address] [address] Hung Merchant CNP 07/19/[address] [address] Hung Merchant CNP Medication Refill 07/17/[address] [address] Hung Merchant CNP Medication Refill 06/23/2025 Orders Only [place] [address] [place] [address] Provider, MD Cesilia from Last 3 Months Immunizations Immunization Administration Dates Next Due COVID-19 (Pre-10/23) Luis E Vaccine, rS-Ad26, P F 03/01/2021 [...] st Contact Info) Description 05/23/2025 Procedure Pass [address] [address] 09/19/2025 9:30 AM EST Procedure visit [facility] Orthopedics & Sports Medicine [address] [place] [address] Ana Kirkpatrick MD [address] [place] [address] Orthopedics & Sports Medicine, [facility] [place] [address] 11/24/2025 10:00 AM EST Office Visit [facility] at [address] [address] Mer Sellers MD [address] [place] [address] 11/29/2025 4:00 PM EST Office Visit [address] [address] Hung Merchant, MEDIA PRODUCTION MANAGER [address] [place] [address] 12/06/2025 8:15 AM EST Appointment [address] [address] Hung Merchant, MEDIA PRODUCTION MANAGER [address] [place] [address] 01/05/2026 10:45 AM EST Appointment [address] [address] Mer Sellers MD [address] [place] [address] Health Maintenance Due Date Last Done Comments ZOSTER VACCINES (1 of 2) 09/28/2017 08/03/2017 RSV VACCINE (1 - 1-dose 75+ series) 2021 INFLUENZA VACCINE (#1) 2025 , 09/06/2018, 09/01/2017, Additional history exists COVID-19 VACCINE (2 - 2024- season) 2025 03/01/2021 HEMOGLOBIN A1C 08/22/2025 02/20/2025, [...] patient's age to complete this topic IPV VACCINES Aged Out No longer eligi ble [...] Only (08/31/2025 2:39 PM EDT) Historical Provider IMAdolph XR CHEST Final Res ult * Hemoglobin A1c (08/23/2025 12:06 PM EDT) Only the most recent of2 resultswithin the time period is included. Blood Hung Merchant [facility] LAB BLOOD BKR ORDERABLES F inal Result Performing Organization Address [facility] Co de Phone Number [address] [address] * Comprehensive metabolic panel (08/23/2025 12:06 PM EDT) Only the most recent of2 resultswithin the time period is included. Blood Hung Merchant [facility] LAB BLOOD BKR ORDERABLES F inal Result Performing Organization Address City/[facility] Co de Phone Number [address] [address] * CBC (08/23/2025 12:05 PM EDT) Blood Hung Merchant [facility] LAB BLOOD BKR ORDERABLES F inal Result Performing Organization Address [facility] Co de Phone Number [address] [address] * XR HIPS BILATERAL 1-2 VIEWS (07/31/2025 [...] AM EST) HCV NON-REACTIV E NON-REACTI VE [facility] Blood 10/24/2020 8:17 AM EST 10/24/2020 8:21 AM EST us Vignesh Serrano MD LAB BLOOD BKR ORDERABLES Final Result [facility] [address] [place] [address] from Last 3 Months or Most Recently Relevant to Health Maintenance Insurance [employer] [place] [employer] RE[employer] [place] [employer] [place] [employer] [place] [employer] [place] [employer] Care Teams Credit Administrator Relationship Specialty Start Date End Date Hung Merchant CNP [address] [facility] [place] [address] PCP - General Nurse Practitioner 05/11/24 Pcp, Unknown 11/05/17 Mer Sellers MD [address] [place] [address] Medical Oncology 04/14/23 Additional Source Comments The information contained in this document represents components of the legal health record. It is not the complete legal health record.[facility]
--- OUTSIDE RECORDS SUMMARY | 2025-09-12 07:05 | XMS_ITS | Encounter Summary ---
Author Organization [facility] Address [address] [place] [address] [place] [address] Phone Care Team Providers Care Patternmaker Bench Name Role Phone Pcp, Unknown Unavailable Unavailable Mer Sellers MD Unavailable [phone] Hung Merchant CNP Primary Care Provider [phone] Reason for Visit * Reason Comments Medication Refill Encounter Details Date Type Department Care Team (Late st Contact Info) Description 07/19/2025 Refill [facility] Family Medicine [address] [place] [address] Hung Merchant CNP [address] [place] [address] [email or web address] Medication Refill Social History Tobacco Use Types [...] st Contact Info) Description 05/23/2025 Procedure Pass [address] [place] [address] 09/19/2025 9:30 AM EST Procedure visit [facility] Orthopedics & Sports Medicine [address] [place] [address] Ana Kirkpatrick MD [address] [place] [address] Orthopedics & Sports Medicine, [facility] [place] [address] 11/24/2025 10:00 AM EST Office Visit [facility] at [address] [address] Mer Sellers MD [address] [place] [address] 11/29/2025 4:00 PM EST Office Visit [address] [address] Hung Merchant CNP [address] [place] [address] 12/06/2025 8:15 AM EST Appointment [facility] Bone [address] [address] Hung Merchant CNP [address] [place] [address] [email or web address] 01/05/2026 10:45 AM EST Appointment [address] [address] Mer Sellers MD [address] [place] [address] documented as of this encounter Visit Diagnoses Diagnosis Bilateral hip pain Pain in joint, pelvic region and thigh documented in this encounter Additional Health Concerns Assessment Noted Time PHQ-2 Depression Total Score: 0 05/31/20 21 12:36 PM EDT documented as of this encounter Care Teams Patternmaker Bench Relationship Specialty Start Date End Date Hung Merchant CNP [address] [place] [address] PCP - General Nurse Practitioner 05/11/24 Pcp, Unknown 11/05/17 Mer Sellers MD [address] [place] [phone] [email or web address] Medical Oncology 04/14/23 documented as of this encounter Additional Source Comments The information contained in this document represents components of the legal health record. It is not the complete legal health record.[facility]
--- OUTSIDE RECORDS SUMMARY | 2025-09-12 07:05 | XMS_ITS | Encounter Summary ---
Author Organization [facility] Address [address] [place] [address] Phone Care Team Providers Care Director Institution Name Role Phone Pcp, Unknown Unavailable Unavailable Mer Sellers MD Unavailable [phone] Hung Merchant CNP Primary Care Provider [phone] Encounter Details Date Type Department Care Team (Late st Contact Info) Description 09/28/[address] [facility], [address] [address] Social History Tobacco Use Types Packs/Day Years [...] st Contact Info) Description 05/23/2025 Procedure Pass [address] [address] 09/19/2025 9:30 AM EST Procedure visit [facility] Orthopedics & Sports Medicine [address] [place] [address] Ana Kirkpatrick MD [address] [place] [address] Orthopedics & Sports Medicine, [place] [address] 11/24/2025 10:00 AM EST Office Visit [facility] at [address] [address] Mer Sellers MD [address] [place] [address] 11/29/2025 4:00 PM EST Office Visit [address] [address] Hung Merchant, [address] [place] [address] 12/06/2025 8:15 AM EST Appointment [facility] Bone Density [address] [address] Hung Merchant CNP [address] [place] [address] [email or web address] 01/05/2026 10:45 AM EST Appointment [facility] Mammography[address] [address] Mer Sellers MD [address] [place] [email or web address] documented as of this encounter Visit Diagnoses Not on filedocumented in this encounter Additional Health Concerns Assessment Noted Time PHQ-2 Depression Total Score: 0 05/31/20 21 12:36 PM EDT documented as of this encounter Care Teams Director Institution Relationship Specialty Start Date End Date Hung Merchant CNP [address] [place] [address] PCP - General Nurse Practitioner 05/11/24 Pcp, Unknown 11/05/17 Mer Sellers MD [address] [place] [email or web address] Medical Oncology 04/14/23 documented as of this encounter Additional Source Comments The information contained in this document represents components of the legal health record. It is not the complete legal health record.[facility]
--- OUTSIDE RECORDS SUMMARY | 2025-09-12 07:05 | XMS_ITS | Encounter Summary ---
Author Organization [facility] Address [address] [place] [address] Phone Care Team Providers Care Rubber Goods Inspector Tester Name Role Phone Pcp, Unknown Unavailable Unavailable Mer Sellers MD Unavailable [phone] Hung Merchant CNP Primary Care Provider [phone] Reason for Visit * Reason Onset Date Comments Triage 2025 Hip pain Encounter Details Date Type Department Care Team (Late st Contact Info) Description 2025 Telephone [facility] Medicine [address] [place] [address] Hung Merchant CNP [address] [place] [address] [email or web address] Triage (Hip pain ) Social History [...] Call Back Number: (if not patient, name/relationship [phone] Green Symptom(s): Triage (Hip pain ) When [...] Contact Info) Description 05/23/2025 Procedure Pass [address] [address] 09/19/2025 9:30 AM EST Procedure visit [facility] Orthopedics & Sports Medicine [address] [place] [address] Ana Kirkpatrick MD [address] [place] [address] Orthopedics & Sports Medicine, [place] [address] 11/24/2025 10:00 AM EST Office Visit [facility] at [address] [address] Mer Sellers MD [address] [place] [email or web address] 11/29/2025 4:00 PM EST Office Visit [address] [address] Hung Merchant, HOGSHEAD WRECKER [address] [place] [address] [email or web address] 12/06/2025 8:15 AM EST Appointment [facility] Bone Density [address] [address] Hung Merchant, HOGSHEAD WRECKER [address] [place] [address] 01/05/2026 10:45 AM EST Appointment [address] [address] Mer Sellers MD [address] [place] [address] [email or web address] documented as of this encounter Visit Diagnoses Not on filedocumented in this encounter Additional Health Concerns Assessment Noted Time PHQ-2 Depression Total Score: 0 05/31/20 21 12:36 PM EDT documented as of this encounter Care Teams Rubber Goods Inspector Tester Relationship Specialty Start Date End Date Hung Merchant CNP [address] [place] [address] [email or web address] PCP - General Nurse Practitioner 05/11/24 Pcp, Unknown 11/05/17 Mer Sellers MD [address] [place] [address] [email or web address] Medical Oncology 04/14/23 documented as of this encounter Additional Source Comments The information contained in this document represents components of the legal health record. It is not the complete legal health record.[facility]
--- OUTSIDE RECORDS SUMMARY | 2025-09-12 07:05 | XMS_ITS | Encounter Summary ---
Author Organization [facility] Address [address] [place] [address] [place] [address] Phone Care Team Providers Care Supervisory Forester Name Role Phone Pcp, Unknown Unavailable Unavailable Duke Lopes DO Primary Care Provider [phone] Mer Sellers MD Unavailable [phone] Hung Merchant ASSISTANT CHIEF TRAIN DISPATCHER Primary Care Provider [phone] Encounter Details Date Type Department Care Team (Late st Contact Info) Description 05/01/2023 Procedure Pass [facility], Ct Scan - [address] [address] Social History Tobacco Use Types Packs/Day Years [...] st Contact Info) Description 05/23/2025 Procedure Pass [facility], Mammography- [address] [address] 09/19/2025 9:30 AM EST Procedure visit [facility] Orthopedics & Sports Medicine [address] [place] [address] Ana Kirkpatrick MD [address] [place] [address] Orthopedics & Sports Medicine, [facility] [place] [address] 11/24/2025 10:00 AM EST Office Visit [facility] at [address] [address] Mer Sellers MD [address] [place] [address] 11/29/2025 4:00 PM EST Office Visit [address] [address] Hung Merchant, ASSISTANT CHIEF TRAIN DISPATCHER [address] [place] [address] 12/06/2025 8:15 AM EST Appointment [address] [address] Hung Merchant, ASSISTANT CHIEF TRAIN DISPATCHER [address] [place] [address] 01/05/2026 10:45 AM EST Appointment [address] [address] Mer Sellers MD [address] [place] [address] documented as of this encounter Visit Diagnoses Not on filedocumented in this encounter Additional Health Concerns Assessment Noted Time PHQ-2 Depression Total Score: 0 05/31/20 21 12:36 PM EDT documented as of this encounter Care Teams Supervisory Forester Relationship Specialty Start Date End Date Duke Lopes DO [address] [place] [phone] [email or web address] PCP - General Internal Medicine 03/05/23 05/10/24 Hung Merchant CNP [address] [place] [address] PCP - General Nurse Practitioner 05/11/24 Pcp, Unknown 11/05/17 Mer Sellers MD [address] [place] [address] [email or web address] Medical Oncology 04/14/23 documented as of this encounter Additional Source Comments The information contained in this document represents components of the legal health record. It is not the complete legal health record.[facility]
--- OUTSIDE RECORDS SUMMARY | 2025-09-12 07:06 | XMS_ITS | Encounter Summary ---
Author Organization [facility] Address [address] [place] [address] [place] [address] Phone Care Team Providers Care Gatehouse Attendant Name Role Phone Pcp, Unknown Unavailable Unavailable Mer Sellers MD Unavailable [phone] Hung Merchant CNP Primary Care Provider [phone] Reason for Visit * Reason Onset Date Comments rx refill 03/01/2025 Encounter Details Date Type Department Care Team (Late st Contact Info) Description 03/01/2025 Telephone [facility] Medicine [address] [place] [address] Hung Merchant CNP [address] [place] [address] [email or web address] rx refill Social History [...] 03/01/2025 Hung Merchant CNP - Family Medicine [facility] Neftali VERGARA > Requested f/u: Return in about 6 months (around 08/31/2025) for Recheck. Upcoming visit: 11/29/2025 Hung Merchant CNP - Family Medicine [facility] Neftali VERGARA ACTIONS TAKEN BY Yulissa Christopher [...] PM EDT Tramadol 50 MG send to [facility] documented in this encounter Plan of Treatment Upcoming Encounters Date Type Department Care Team (Late st Contact Info) Description 05/23/2025 Procedure Pass [address] [address] 09/19/2025 9:30 AM EST Procedure visit [facility] Orthopedics & Sports Medicine [address] [place] [address] Ana Kirkpatrick MD [address] [place] [address] Orthopedics & Sports Medicine, [place] [address] 11/24/2025 10:00 AM EST Office Visit [facility] Center at [address] [address] Mer Sellers MD [address] [place] [address] 11/29/2025 4:00 PM EST Office Visit [address] [address] Hung Merchant, FLORENTINO [address] [place] [address] [email or web address] 12/06/2025 8:15 AM EST Appointment [facility], Bone Density [address] [address] Hung Merchant CNP [address] [place] [address] 01/05/2026 10:45 AM EST Appointment [facility], Mammography[address] [address] Mer Sellers MD 30 [place] [address] documented as of this encounter Visit Diagnoses Diagnosis Bilateral hip pain Pain in joint, pelvic region and thigh documented in this encounter Additional Health Concerns Assessment Noted Time PHQ-2 Depression Total Score: 0 05/31/20 21 12:36 PM EDT documented as of this encounter Care Teams Gatehouse Attendant Relationship Specialty Start Date End Date Hung Merchant CNP [address] [place] [address] PCP - General Nurse Practitioner 05/11/24 Pcp, Unknown 11/05/17 Mer Sellers MD [address] [place] [address] Medical Oncology 04/14/23 documented as of this encounter Additional Source Comments The information contained in this document represents components of the legal health record. It is not the complete legal health record.[facility]
--- OUTSIDE RECORDS SUMMARY | 2025-09-12 07:06 | XMS_ITS | Encounter Summary ---
Author Organization [facility] Address [address] [place] [address] Phone Care Team Providers Care Airline Pilot Name Role Phone Pcp, Unknown Unavailable Unavailable Mer Sellers MD Unavailable [phone] Hung Merchant CNP Primary Care Provider [phone] Encounter Details Date Type Department Care Team (Late st Contact Info) Description 08/31/2024 Procedure Pass [facility], Ct Scan - [address] [address] Social History Tobacco Use Types Packs/Day Years [...] Contact Info) Description 05/23/2025 Procedure Pass [address] [address] 09/19/2025 9:30 AM EST Procedure visit [facility] Orthopedics & Sports Medicine [address] [place] [address] Ana Kirkpatrick MD [address] [place] [address] Orthopedics & Sports Medicine, [place] [address] 11/24/2025 10:00 AM EST Office Visit [facility] at [address] [address] Mer Sellers MD [address] [place] [address] 11/29/2025 4:00 PM EST Office Visit [address] [address] Hung Merchant, [address] [place] [address] 12/06/2025 8:15 AM EST Appointment [facility], Bone Density [address] [address] Hung Merchant CNP [address] [place] [address] 01/05/2026 10:45 AM EST Appointment [address] [address] Mer Sellers MD [address] [place] [phone] [email or web address] documented as of this encounter Visit Diagnoses Not on filedocumented in this encounter Additional Health Concerns Assessment Noted Time PHQ-2 Depression Total Score: 0 05/31/20 21 12:36 PM EDT documented as of this encounter Care Teams Airline Pilot Relationship Specialty Start Date End Date Hung Merchant CNP [address] [place] [address] PCP - General Nurse Practitioner 05/11/24 Pcp, Unknown 11/05/17 Mer Sellers MD [address] [place] [address] Medical Oncology 04/14/23 documented as of this encounter Additional Source Comments The information contained in this document represents components of the legal health record. It is not the complete legal health record.[facility]
--- OUTSIDE RECORDS SUMMARY | 2025-09-12 07:06 | XMS_ITS | Encounter Summary ---
Author Organization [facility] Address [address] [facility] [address] [place] [address] Phone Care Team Providers Care Remote Sensing Surveyor Name Role Phone Pcp, Unknown Unavailable Unavailable Mer Sellers MD Unavailable [phone] Hung Merchant CNP Primary Care Provider [phone] Encounter Details Date Type Department Care Team (Late st Contact Info) Description 08/24/2025 Orders Only [facility] 29 [place], [place] [id number] Hung Merchant, [place]OR[place] 29 [place] [address] [email or web address] Type 2 diabetes mellitus without complication, without [...] Contact Info) Description 05/23/2025 Procedure Pass [address] [address] 09/19/2025 9:30 AM EST Procedure visit [facility] Orthopedics & Sports Medicine [address] [place] [address] Ana Kirkpatrick MD [address] [place] [address] Orthopedics & Sports Medicine, [facility] [place] [address] 11/24/2025 10:00 AM EST Office Visit [facility] at [address] [address] Mer Sellers MD [address] [place] [address] [email or web address] 11/29/2025 4:00 PM EST Office Visit [address] [address] Hung Merchant, DISTANCE EDUCATION DIRECTOR [address] [place] [address] 12/06/2025 8:15 AM EST Appointment [address] [address] Hung Merchant, [place]OR[place] [address] [place] [address] [email or web address] 01/05/2026 10:45 AM EST Appointment [address] [address] Mer Sellers MD [address] [place] [address] documented as of this encounter Procedures Procedure [...] 12:06 PM EDT) Blood Hung Carol Mayur DISTANCE EDUCATION DIRECTOR LAB BLOOD BKR ORDERABLES F inal Result Performing Organization Address [facility] Co de Phone Number [address] [address] * Comprehensive metabolic panel (08/23/2025 12:06 PM EDT) Blood Hungisaac Medina Mayur DISTANCE EDUCATION DIRECTOR LAB BLOOD BKR ORDERABLES F inal Result Performing Organization Address [facility] Co de Phone Number [address] [address] * CBC (08/23/2025 12:05 PM EDT) Blood Hung Caroleliana Merchant [facility] LAB BLOOD BKR ORDERABLES F inal Result Performing Organization Address [facility] de Phone Number [address] [address] documented in this encounter Visit Diagnoses Diagnosis Type 2 diabetes mellitus without complication, without long-term current use of insulin White coat syndrome with diagnosis of hypertension documented in this encounter Additional Health Concerns Assessment Noted Time PHQ-2 Depression Total Score: 0 08/07/20 25 1:50 PM EDT documented as of this encounter Care Teams Remote Sensing Surveyor Relationship Specialty Start Date End Date Hung Merchant CNP [address] [place] [address] [place] [address] [email or web address] PCP - General Nurse Practitioner 05/11/24 Pcp, Unknown 11/05/17 Mer Sellers MD [address] [place] [email or web address] Medical Oncology 04/14/23 documented as of this encounter Additional Source Comments The information contained in this document represents components of the legal health record. It is not the complete legal health record.[facility]
--- OUTSIDE RECORDS SUMMARY | 2025-09-12 07:06 | XMS_ITS | Encounter Summary ---
Author Organization [facility] Address [address] [place] [address] Phone Care Team Providers Care Fitness/Wellness Director Name Role Phone Pcp, Unknown Unavailable Unavailable Mer Sellers MD Unavailable [phone] Hung Merchant [facility] Primary Care Provider [phone] Encounter Details Date Type Department Care Team (Late st Contact Info) Description 08/31/2025 Orders Only [facility] [address] [place] [address] Provider, MD Cesilia [address] [place], [place] [address] Social History Tobacco Use Types Packs/Day Years [...] Contact Info) Description 05/23/2025 Procedure Pass [address] [address] 09/19/2025 9:30 AM EST Procedure visit [facility] Orthopedics & Sports Medicine [address] [place] [address] Ana Kirkpatrick MD [address] [place] [address] Orthopedics & Sports [place], [place] [address] 11/24/2025 10:00 AM EST Office Visit [facility] at [address] [address] Mer Sellers MD [address] [place] [address] 11/29/2025 4:00 PM EST Office Visit [facility] Family Medicine 29 [place] [address] Hung Merchant, FLORENTINO 29 [place] [address] [email or web address] 12/06/2025 8:15 AM EST Appointment [facility], Bone Density [address] [address] Hung Merchant CNP 29 [place] [address] 01/05/2026 10:45 AM EST Appointment [facility] Mammography[address] [address] Mer Sellers MD [address] [place] [address] documented as of this encounter Procedures Procedure [...] documented as of this encounter Care Teams Fitness/Wellness Director Relationship Specialty Start Date End Date Hung Merchant CNP [address] [place] [address] PCP - General Nurse Practitioner 05/11/24 Pcp, Unknown 11/05/17 Mer Sellers MD [address] [place] [address] Medical Oncology 04/14/23 documented as of this encounter Additional Source Comments The information contained in this document represents components of the legal health record. It is not the complete legal health record.[facility]
--- OUTSIDE RECORDS SUMMARY | 2025-09-12 07:06 | XMS_ITS | Clinical Summary ---
Author Organization [address] [facility] Address [address] [place] [address] Phone Care Team Providers Care Fertilizer Processing Supervisor Name Role Phone Avtargeni Natashasukhdev Primary Care Provider [phone] Surgical History Surgery Date Site/Laterality Comments ABDOMINAL SURGERY PROCEDURE: HISTORICAL ABDOMINAL SURGERY Medical History Medical History Date Comments Headache DX:Headache Double vision DX:Double vision Essential hypertension DX:Essent ial hypertension Diabetes mellitus type 2, co ntrolled, with complications (CMS/HCC V24, CMS/HCC V28) DX:Diabetes mellitus type 2, controlled, with complications ([facility]) Social History Tobacco Use Types [...] [employer] [place] [employer] Care Teams Fertilizer Processing Supervisor Relationship Specialty Start Date End Date Duke Lopes DO [address] [place] [phone] PCP - General 01/25/24
--- OUTSIDE RECORDS SUMMARY | 2025-09-12 07:06 | XMS_ITS | Encounter Summary ---
Author Organization [facility] Address [address] [place] [address] Phone Care Team Providers Care Ice Cream Mixer Name Role Phone Pcp, Unknown Unavailable Unavailable Mer Sellers MD Unavailable [phone] Hung Merchant CNP Primary Care Provider [phone] Encounter Details Date Type Department Care Team (Late st Contact Info) Description 08/31/2024 Procedure Pass [facility], Ct Scan - [address] [address] Social History Tobacco Use Types Packs/Day Years [...] st Contact Info) Description 05/23/2025 Procedure Pass [address] [address] 09/19/2025 9:30 AM EST Procedure visit [facility] Orthopedics & Sports Medicine [address] [place] [address] Ana Kirkpatrick MD [address] [place] [address] Orthopedics & Sports Medicine, [place] [address] 11/24/2025 10:00 AM EST Office Visit [facility] at [address] [address] Mer Sellers MD [address] [place] [address] 11/29/2025 4:00 PM EST Office Visit [address] [address] Hung Merchant, [address] [place] [address] 12/06/2025 8:15 AM EST Appointment [facility], Bone Density [address] [address] Hung Merchant CNP 29 [place] [address] 01/05/2026 10:45 AM EST Appointment [address] [address] Mer Sellers MD [address] [place] [address] documented as of this encounter Visit Diagnoses Not on filedocumented in this encounter Additional Health Concerns Assessment Noted Time PHQ-2 Depression Total Score: 0 05/31/20 21 12:36 PM EDT documented as of this encounter Care Teams Ice Cream Mixer Relationship Specialty Start Date End Date Hung Merchant CNP [address] [place] [address] [email or web address] PCP - General Nurse Practitioner 05/11/24 Pcp, Unknown 11/05/17 Mer Sellers MD [address] [place] [address] Medical Oncology 04/14/23 documented as of this encounter Additional Source Comments The information contained in this document represents components of the legal health record. It is not the complete legal health record.[facility]
[2025-09-13] VITALS (31 sets, daily range): BP systolic 138–184; BP diastolic 66–85; PULSE 68–80; RESP 11–21; TEMP 36.8–37; O2SAT 94–100; BMI 34.9
[2025-09-13 08:12] LABS: MANUAL DIFF FLAG NO
[2025-09-13 08:31] LABS: Hematocrit 39.5 % (37.0-47.0); Hemoglobin 13.5 g/dl (12.0-16.0); Imm Gran Abs Auto 0.02 X10*3/uL (0.00-0.03); Imm Gran Pct Auto 0.2 % (0.0-0.4); Lymphocytes Absolute Auto 3.0 X10*3/uL (1.2-4.9); Mean Corpuscular HGB Conc 34.2 g/dl (31.0-35.0); Mean Corpuscular Hemoglobin 31.4 pg (27.0-33.0); Mean Corpuscular Volume 91.9 fL (80.0-98.0); NRBC Abs Auto 0.000 X10*3/uL (0.0-0.012); NRBC Pct Auto 0.0 /100WBC (0.0-0.2); Platelet Count 228 X10*3/uL (160-400); Red Blood Count 4.30 X10*6/uL (4.20-5.50); White Blood Count 8.8 X10*3/uL (4.8-10.8)
[2025-09-13 08:36] LABS: Blood Urea Nitrogen 47 mg/dL (9-16); Creatinine Clr Calc Pharmacy 35.6; Estimated Glomerular Filt Rate 35
[2025-09-13] MEDS: Heparin Sodium,Porcine 10,000 UNIT/10 ML VIAL 5000 UNIT IVPUSH (10:14)
[2025-09-13 10:48] LABS: ACT 178 Celite s (79-173)
--- NOTE | 2025-09-13 12:44 | P.OP_ITS ---
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 Ultrasound-guided right common femoral access 2. Aortogram 3. Coil embolization of left hypogastric artery Surgeon:Denver Harris M.D., FACS, RPVI Disability Insurance Claim Examiner:None Anesthesia: Local with moderate conscious sedation. Total intraservice moderate sedation time was 93 minutes. I monitored the patient's level of consciousness and physiologic status continuously throughout the procedure. Specimens:none Drains:none Estimated blood loss: Less than 10 ml Radiation Dose: 956.2 mGy Implant: Concerto coils 7 x 30 (x3) 9 x 30 (x3), 7 [place] MVP plug Indications: Very pleasant 80-year-old female presents for our evaluation and treatment of left hypogastric aneurysm. She had been followed for this and it appeared to be increasing in size. At the current time it is 4.1 cm. She had new onset pain and was scheduled urgently for coil embolization. The patient has signed the informed consent after reviewing risks, complications, benefits, and alternatives previously discussed with the patient. The patient was given the opportunity to ask any additional questions or voice any concerns. All questions were answered to the patient's satisfaction. Procedure in detail: Patient was brought to the angiography suite prior to which a time-out was called for patient identification and site verification. Bilateral groins were prepped and draped in the standard surgical fashion. Under ultrasound guidance right common femoral was punctured with micro puncture needle and wire. Subsequently a precision 5 [place] sheath was then placed. Bentson wire was advanced to the level of the aorta. 5 [place] Flush catheter was brought up and parked at the level of the renal arteries. Aortogram was then undertaken. Catheter was brought down to the level of the iliac bifurcation. Aortogram and iliacs were imaged. We brought a Glidewire advantage up and over into the left hypogastric artery. At this time we administered 5000 units of systemic heparin. After 5 minutes of circulation time we brought an up and over 5 [place] sheath and parked it at the origin of the left hypogastric. We then followed this with a Puddle Blazer catheter. Once in appropriate position we imaged the area there was multiple feeding branches. Because of these feeding branches we then made the decision to coil this. We brought in a microcatheter and through this we deployed 3 of the 9 x 30 coils, followed by 3 of the 7 x 30 coils. All of these were Medtronic Concerto coils. It appeared to have a large origin of the hypogastric. At this time decision was made to place a 7 [place] MVP plug at the origin of the left hypogastric. That deployed well. Subsequently flow seemed to have diminished. Catheter wire sheath was brought back to the ipsilateral side. Five [place] Celt closure device was deployed Patient tolerated the procedure well. [facility]. Interpretation of films: 1. Ultrasound demonstrates appropriate femoral access site. Vessel was patent with minimal stenosis. Needle entry was visualized. Image of ultrasound was saved. 2. Aortogram demonstrates appropriate caliber aorta. Minimal disease. Appropriate take-off of the renals. 3. Iliac images demonstrate no significant disease of the common iliac and exte rnal iliacs. 4. Left hypogastric has a large 4.1 cm aneurysm. Multiple large feeding branches were noted. After coiling flow had significantly decreased. Conclusion: 1. Successful coil embolization of left hypogastric 2. Anticoagulation status: No change This note is constructed using voice recognition software. While every effort has been made to ensure accuracy, mineral resources inspector errors may have been included. Thank you for allowing me to participate in the care of your patient. Yours sincerely, Denver Harris MD, FACS, R.P.V.I.
== END 2025-09-13 14:12 | disposition home or self-care (01) ==
PROVIDERS: PCP Registered Nurse; Visit Provider Surgery Vascular Surgery
DX: I72.3 Aneurysm of iliac artery (principal); M10.9 Gout, unspecified; Z88.2 Allergy status to sulfonamides
CPT/HCPCS: 36415; 37242; 76937; 82565; 84520; 85025; 85347; 99152; 99153; C1760; C1769; C1887; C1889; C1894; J1644; J2250; J3010; Q9967

== ENCOUNTER → 2025-09-13 07:41 | Outpatient (BNV) | payer OTHER, SELFPAY | PROVIDERS: PCP Registered Nurse; Visit Provider Surgery Vascular Surgery | DX: I72.3 Aneurysm of iliac artery (principal) | CPT/HCPCS: 36246; 37242; 75625; 75716; 76937; 99152 ==

== ENCOUNTER 2025-09-26 14:26 | Outpatient (AMB) | payer OTHER, SELFPAY ==
--- NOTE | 2025-09-26 14:35 | MHC.OFFVIS ---
Intake Visit Reasons: 2 week follow up Angio 09/13/25 Intake Note: 2 week follow up Left hypogastric artery 09/13/[address] Supervisor Required: No Accompanied by: Self / Same As Patient Allergies Sulfa (Sulfonamide Antibiotics) Allergy (Mild, Verified 09/26/25 14:39) Unknown HPI HPI 2 week follow up Angio 09/13/25: Details: The patient is a 80 year old individual presenting for a post-operative follow-up after an endovascular coiling of left hypogastric artery. The patient has a history of an aneurysm that was discovered on a CT scan at [facility] and possibly an earlier one at [facility], which was being monitored by the oncologist. The patient recently underwent a coiling procedure with a plug placement to address the aneurysm. She now presents for postprocedure follow-up. She in general feels well with no postprocedure issues [facility] Medical History HLD (hyperlipidemia) HTN (hypertension) Social History Patient Tobacco Use Status: Never used Tobacco Review of Systems Const All systems reviewed & are unremarkable except as noted in HPI and below Reports no additional complaints ENT Reports Normal hearing present Card Denies chest pain, Denies chest pain at rest, Denies chest pain with activity and Denies pedal edema Resp Denies cough GI Denies abdominal pain Musc Denies abnormal gait, Denies muscle cramps and Denies radiating pain into limb Skin/Breast Denies skin ulcer and Denies wounds Neuro Reports Normal hearing present and Denies abnormal gait Psych Reports no additional complaints Physical Exam Const General: cooperative, healthy appearing and comfortable Orientation/consciousness: oriented to person, oriented to place and oriented to time HEENT Head: Yes normal to inspection Neck Neck: Yes normal visual inspection Carotids: no bruits Chest Chest palpation & inspection: normal inspection of the chest Resp Effort & Inspection: normal respiratory effort and able to speak in complete sentences Auscultation: clear to auscultation bilaterally, no crackles, no rales, no rhonchi and no wheezes Cardio Rate: regular rate Rhythm: regular rhythm Heart sounds: S1 normal heart sound present and S2 normal heart sound present Bruits: no carotid bruits Peripheral pulses: Peripheral pulses 2+ throughout GI Inspection: Yes normal to inspection Skin Wounds: no wounds Hair: normal Neuro General: oriented to person, oriented to place and oriented to time Cranial nerves: Yes CN's II-XII intact bilaterally and Yes Normal hearing present Cognition (Neuro): normal cognition Motor exam (neuro): 5/5 motor strength present throughout Extrem Other: venous exam: No significant superficial varicosities or spider telangiectasias, minimal edema General: No clubbing, No cyanosis and No edema Psych Appearance: grossly normal Mental Status: mental status grossly normal Speech and movement: Normal speech and movement present Assessment & Plan Assessment & Plan (1) Aneurysm of left internal iliac artery: Code(s): I72.3 - Aneurysm of iliac artery Category: Medical Plan: I informed the patient that the aneurysm repair procedure went very well. I explained that a coil and a plug were successfully placed to seal off blood flow to the aneurysm. The patient expressed frustration about not being put under general anesthesia and experiencing significant hip pain during the procedure, and I clarified that these procedures are typically done with the patient under conscious sedation. I recommended a follow-up CT scan in three months to ensure the aneurysm is stable and will place an order for this study. She will follow up with us after testing. Thank you for allowing us to assist in her care. If there are any questions or concerns please do not hesitate to contact us Orders: Orders CT angio abdomen pelvis 3 Months I72.3 - Aneurysm of iliac artery Blood Urea Nitrogen 3 Months I72.3 - Aneurysm of iliac artery Creatinine 3 Months I72.3 - Aneurysm of iliac artery Coding Level of Care Code Est Pt Level 4 (80711) Diagnoses Aneurysm of left internal iliac artery I72.3
--- OUTSIDE RECORDS SUMMARY | 2025-09-26 18:19 | XMS_ITS | Encounter Summary ---
Author Organization [facility] Address [address] [place] [address] [place] [address] Phone Care Team Providers Care Crop Picker Name Role Phone Pcp, Unknown Unavailable Unavailable Duke Lopes DO Primary Care Provider Mer Sellers MD Unavailable [phone] Hung Merchant METAL POLISHER Primary Care Provider [phone] Encounter Details Date Type Department Care Team (Late st Contact Info) Description 05/01/2023 Procedure Pass [facility], Ct Scan - [address] [address] Social History Tobacco Use Types Packs/Day Years [...] st Contact Info) Description 05/23/2025 Procedure Pass [facility], Mammography- [address] [address] 11/24/2025 10:00 AM EST Office Visit [facility] at [address] [address] Mer Sellers MD [address] [place] [address] 11/29/2025 4:00 PM EST Office Visit [address] [address] Hung Merchant, METAL POLISHER [address] [place] [address] 12/06/2025 8:15 AM EST Appointment [address] [address] Hung Merchant, METAL POLISHER [address] [place] [address] 01/05/2026 10:45 AM EST Appointment [address] [address] eMr Sellers MD [address] [place] [address] documented as of this encounter Visit Diagnoses Not on filedocumented in this encounter Additional Health Concerns Assessment Noted Time PHQ-2 Depression Total Score: 0 05/31/20 21 12:36 PM EDT documented as of this encounter Care Teams Crop Picker Relationship Specialty Start Date End Date Duke Lopes DO [address] [place] [phone] [email or web address] PCP - General Internal Medicine 03/05/23 05/10/24 Hung Merchant CNP [address] [place] [address] PCP - General Nurse Practitioner 05/11/24 Pcp, Unknown 11/05/17 Mer Sellers MD [address] [place] [address] [email or web address] Medical Oncology 04/14/23 documented as of this encounter Additional Source Comments The information contained in this document represents components of the legal health record. It is not the complete legal health record.[facility]
--- OUTSIDE RECORDS SUMMARY | 2025-09-26 18:19 | XMS_ITS | Encounter Summary ---
Author Organization [facility] Address [address] [place] [address] [place] [address] Phone Care Team Providers Care Manager Cost Name Role Phone Pcp, Unknown Unavailable Unavailable Duke Lopes DO Primary Care Provider [phone] Mer Sellers MD Unavailable [phone] Hung Merchant LEGAL ADMINISTRATIVE SECRETARY Primary Care Provider [phone] Encounter Details Date Type Department Care Team (Late st Contact Info) Description 03/01/2024 Procedure Pass [facility], Ct Scan - [address] [address] Social History Tobacco Use Types Packs/Day Years [...] st Contact Info) Description 05/23/2025 Procedure Pass [facility], Mammography- [address] [address] 11/24/2025 10:00 AM EST Office Visit [facility] at [address] [address] Mer Sellers MD [address] [place] [address] 11/29/2025 4:00 PM EST Office Visit [address] [address] Hung Merchant, LEGAL ADMINISTRATIVE SECRETARY [address] [place] [address] 12/06/2025 8:15 AM EST Appointment [address] [address] Hung Merchant, LEGAL ADMINISTRATIVE SECRETARY [address] [place] [address] 01/05/2026 10:45 AM EST Appointment [address] [address] Mer Sellers MD [address] [place] [address] documented as of this encounter Visit Diagnoses Not on filedocumented in this encounter Additional Health Concerns Assessment Noted Time PHQ-2 Depression Total Score: 0 05/31/20 21 12:36 PM EDT documented as of this encounter Care Teams Manager Cost Relationship Specialty Start Date End Date Duke Lopes DO [address] [place] [phone] [email or web address] PCP - General Internal Medicine 03/05/23 05/10/24 Hung Merchant CNP [address] [place] [address] PCP - General Nurse Practitioner 05/11/24 Pcp, Unknown 11/05/17 Mer Sellers MD [address] [place] [address] [email or web address] Medical Oncology 04/14/23 documented as of this encounter Additional Source Comments The information contained in this document represents components of the legal health record. It is not the complete legal health record.[facility]
--- OUTSIDE RECORDS SUMMARY | 2025-09-26 18:19 | XMS_ITS | Encounter Summary ---
Author Organization [facility] Address [address] [place] [address] [place] [address] Phone Care Team Providers Care Union Organizer Name Role Phone Pcp, Unknown Unavailable Unavailable Duke Lopes DO Primary Care Provider [phone] Mer Sellers MD Unavailable [phone] Hung Merchant DONOR SERVICES SPECIALIST Primary Care Provider [phone] Encounter Details Date Type Department Care Team (Late st Contact Info) Description 03/01/2024 Procedure Pass [facility], Ct Scan - [address] [address] Social History Tobacco Use Types Packs/Day Years [...] st Contact Info) Description 05/23/2025 Procedure Pass [facility], Mammography- [address] [address] 11/24/2025 10:00 AM EST Office Visit [facility] at [address] [address] Mer Sellers MD [address] [place] [address] 11/29/2025 4:00 PM EST Office Visit [address] [address] Hung Merchant, DONOR SERVICES SPECIALIST [address] [place] [address] [email or web address] 12/06/2025 8:15 AM EST Appointment [address] [address] Hung Merchant, DONOR SERVICES SPECIALIST [address] [place] [address] 01/05/2026 10:45 AM EST Appointment [address] [address] Mer Sellers MD [address] [place] [address] documented as of this encounter Visit Diagnoses Not on filedocumented in this encounter Additional Health Concerns Assessment Noted Time PHQ-2 Depression Total Score: 0 05/31/20 21 12:36 PM EDT documented as of this encounter Care Teams Union Organizer Relationship Specialty Start Date End Date Duke Lopes DO [address] [place] [phone] [email or web address] PCP - General Internal Medicine 03/05/23 05/10/24 Hung Merchant CNP [address] [place] [address] PCP - General Nurse Practitioner 05/11/24 Pcp, Unknown 11/05/17 Mer Sellers MD [address] [place] [address] [email or web address] Medical Oncology 04/14/23 documented as of this encounter Additional Source Comments The information contained in this document represents components of the legal health record. It is not the complete legal health record.[facility]
--- OUTSIDE RECORDS SUMMARY | 2025-09-26 18:19 | XMS_ITS | Encounter Summary ---
Author Organization [facility] Address [address] [place] [address] [place] [address] Phone Care Team Providers Care Emissions Testing And Repair Technician Name Role Phone Pcp, Unknown Unavailable Unavailable Duke Lopes DO Primary Care Provider [phone] Mer Sellers MD Unavailable [phone] Hung Merchant CNP Primary Care Provider [phone] Encounter Details Date Type Department Care Team (Late st Contact Info) Description 05/01/2023 Procedure Pass [address] [address] Social History Tobacco Use Types Packs/Day Years [...] st Contact Info) Description 05/23/[address] [address] 11/24/2025 10:00 AM EST Office Visit [facility] at [address] [address] Mer Sellers MD [address] [place] [address] 11/29/2025 4:00 PM EST Office Visit [address] [address] Hung Merchant, FLORENTINO [address] [place] [address] 12/06/2025 8:15 AM EST Appointment [address] [address] Hung Merchant CNP [address] [place] [address] 01/05/2026 10:45 AM EST Appointment [address] [address] Mer Sellers MD [address] [place] [address] documented as of this encounter Visit Diagnoses Not on filedocumented in this encounter Additional Health Concerns Assessment Noted Time PHQ-2 Depression Total Score: 0 05/31/20 21 12:36 PM EDT documented as of this encounter Care Teams Emissions Testing And Repair Technician Relationship Specialty Start Date End Date Duke Lopes DO [address] [place] [phone] [email or web address] PCP - General Internal Medicine 03/05/23 05/10/24 Hung Merchant CNP [address] [place] [address] [email or web address] PCP - General Nurse Practitioner 05/11/24 Pcp, Unknown 11/05/17 Mer Sellers MD [address] [place] [address] [email or web address] Medical Oncology 04/14/23 documented as of this encounter Additional Source Comments The information contained in this document represents components of the legal health record. It is not the complete legal health record.[facility]
--- OUTSIDE RECORDS SUMMARY | 2025-09-26 18:19 | XMS_ITS | Clinical Summary ---
Author Organization [facility] Address [address] [place] [address] Phone Care Team Providers Care Aerospace Medicine Physician Name Role Phone Pcp, Unknown Unavailable Unavailable Mer Sellers MD Unavailable [phone] Hung Merchant CNP Primary Care Provider [phone] Allergies Active Allergy Reactions Criticality Noted Date Comments Oxycodone-Acetaminophen 05/08/2022 Sulfa (Sulfonamide Antibiotics) Nausea and/or Vomiting 02/27/2016 Medications diclofenac sodium (VOLTAREN) 1 % Gel Apply topically. Active ibuprofen (ADVIL,MOTRIN) 600 MG tablet Take 600 mg by mouth every 6 (six) hours as needed. Active fluorouraciL (EFUDEX) 5 % cream Apply 1 Application topically 2 (two) times a day. 11/09/19 25 Active atorvastatin (LIPITOR) 40 MG tabletIndications: Mixed hyperlipidemia Take 1 tablet (40 mg total) by mouth daily. 90 tablet 07/21/20 25 Active colchicine (COLCRYS) 0.6 mg tablet Take 1 tablet (0.6 mg total) by mouth daily. 30 tablet 08/08/20 25 Active lisinopril (PRINIVIL,ZESTRIL) 20 MG tablet TAKE 1 TABLET(20 MG) BY MOUTH DAILY 90 tablet 08/25/20 25 Active hydroCHLOROthiazid e 25 MG tablet TAKE 1 TABLET(25 MG) BY MOUTH DAILY 90 tablet 08/25/20 25 Active traMADoL (ULTRAM) 50 mg tabletIndications: Bilateral hip pain Take 1 tablet (50 mg total) by mouth every 6 (six) hours as needed for pain (specific location in comments) (hip pain). 30 tablet 09/20/20 25 Active traMADoL (ULTRAM) 50 mg tabletIndications: Bilateral hip pain Take 1 tablet (50 mg total) by mouth every 6 (six) hours as needed for pain (specific location in comments) (hip pain). 30 tablet 08/07/20 25 025 Discontin ued(Reord er) traMADoL (ULTRAM) 50 mg tabletIndications: Bilateral hip pain Take 1 tablet (50 mg total) by mouth every 6 (six) hours as needed for pain (specific location in comments) (hip pain). 30 tablet 08/28/20 25 025 Discontin ued(Reord er) traMADoL (ULTRAM) 50 mg tabletIndications: Bilateral hip pain Take 1 tablet (50 mg total) by mouth every 6 (six) hours as needed for pain (specific location in comments) (hip pain). 30 tablet 09/13/20 Discontin ued(Reord er) Hospital, Clinic, or Other Facility Administered Medication Ordered Dose Route Frequency Start Date End Date Status lidocaine (XYLOCAINE) 1% injection 2 mL 2 mL IAtc Once 09/19/2025 09/19/2025 Ended BUPivacaine HCl (MARCAINE) 0.25% injection 2 mL 2 mL See Adm Inst Once 09/19/2025 09/19/2025 Ended triamcinolone acetonide (KENALOG-40) 40 mg/mL injection 80 mg 80 mg See Adm Inst Once 09/19/2025 09/19/2025 Ended iohexoL (OMNIPAQUE-240) 240 mg iodine/mL solution 10 mL 10 mL IAtc Once as needed 09/19/2025 09/19/2025 Ended lidocaine (XYLOCAINE) 1% injection 2 mL 2 mL IAtc Once 09/19/2025 09/19/2025 Ended BUPivacaine HCl (MARCAINE) 0.25% injection 2 mL 2 mL See Adm Inst Once 09/19/2025 09/19/2025 Ended triamcinolone acetonide (KENALOG-40) 40 mg/mL injection 80 mg 80 mg See Adm Inst Once 09/19/2025 09/19/2025 Ended Active Problems Problem Noted Date Diagnosed Date Postmenopausal 08/07/2025 Assessment & Plan (08/07/2025 2:37 PM EDT): Requesting to complete bone density for screening, has never completed. Order entered and phone # provided for patient for scheduling Bilateral hip pain 03/01/2025 Assessment & Plan (08/07/2025 2:37 PM EDT): Met with Dr. Sales. Likely will benefit from hip replacement in [...] AM EDT): Following with Dr. Sellers through [facility], has CT scan scheduled 05/2025 Assessment & Plan (11/23/2024 8:23 PM EST): Sees Dr. Sellers every six months. Has repeat CT scans 05/2025 Assessment & Plan (05/12/2024 6:49 AM EDT): Following with Dr. Sellers every six months. Sees [facility], last colonoscopy 03/2023 and on 3 [...] ordered, prefers to do with labs at [facility], ordered by Dr. [...] Encounters Date Type Department Care Team Description 09/25/2025 Refill [facility] Medicine [address] [place] [address] Hung Merchant CNP Medication Refill 09/20/2025 Refill [facility] [address] [place] [address] Richard Mercado MA Medication Refill 09/19/2025 9:30 AM EST Procedure visit [facility] [address] [place] [address] Ana Kirkpatrick MD Primary localized osteoarthritis of right hip (Primary Dx); Primary localized osteoarthritis of left hip 09/19/2025 7:09 AM EST - 09/19/2025 11:59 PM EST Hospital Encounter [address] [address] Ana Kirkpatrick MD Discharge Disposition: Home or Self Care 09/18/2025 Ancillary Orders [address] [address] Ana Kirkpatrick MD Osteoarthritis of both hips, unspecified osteoarthritis type (Primary Dx) 09/12/[address] [address] Hung Merchant CNP Medication Refill 09/12/[address] [address] Anusha Shaver MA Medication Refill (Tramadol ) 08/31/2025 Orders Only [address] [address] Cesilia Soto MD 08/28/2025 Telephone [facility] [address] [place] [address] Hung Merchant CNP 08/28/2025 Refill [facility] [address] [place] [address] Richard Mercado MA Medication Refill 08/25/2025 Refill [facility] [address] [place] [address] Judy Becerra PA-C Medication Refill 08/24/2025 Orders Only [address] [address] Hung Merchant CNP Type 2 diabetes mellitus without complication, without long-term current use of insulin; White coat syndrome with diagnosis of hypertension 08/08/[address] [address] Darlene uLcas 08/07/2025 1:45 PM EDT Office Visit [address] [address] Hung Merchant CNP Bilateral hip pain (Primary Dx); Type 2 diabetes mellitus without complication, without long-term current use of insulin; White coat syndrome with diagnosis of hypertension; Postmenopausal; Mixed hyperlipidemia 07/31/2025 2:15 PM EDT Office Visit [facility] [address] [place] [address] Ana Kirkpatrick MD Primary localized osteoarthritis of left hip (Primary Dx); Pain; Primary localized osteoarthritis of right hip 07/31/2025 2:12 PM EDT - 07/31/2025 11:59 PM EDT Hospital Encounter [address] [address] Ana Kirkpatrick MD Discharge Disposition: Home or Self Care [address] [address] Hung Merchant CNP Medication Refill [address] [address] Hung Merchant CNP Medication Refill [address] [address] Hung Merchant CNP Triage (Hip pain ) 2025 Telephone [facility] [address] [place] [address] Hugn Merchant CNP 07/19/2025 Refill [facility] [address] [place] [address] Hung Merchant CNP Medication Refill 07/17/2025 Refill [facility] [address] [place] [address] Hung Merchant CNP Medication Refill from Last 3 Months Immunizations Immunization Administration Dates Next Due COVID-19 (Pre-08/24) [employer] Vaccine, rS-Ad26, P F 03/01/2021 INFLUENZA, SPLIT [...] st Contact Info) Description 05/23/2025 Procedure Pass [facility], [facility] [address] [place] [address] 11/24/2025 10:00 AM EST Office Visit [facility] at [address] [address] Mer Sellers MD [address] [place] [address] 11/29/2025 4:00 PM EST Office Visit [address] [address] Hung Merchant, BOOM CONVEYOR OPERATOR [address] [place] [address] 12/06/2025 8:15 AM EST Appointment [address] [address] Hung Merchant, BOOM CONVEYOR OPERATOR [address] [place] [address] 01/05/2026 10:45 AM EST Appointment [address] [address] Mer Sellers MD [address] [place] [address] Health Maintenance Due Date Last Done Comments [...] Only (08/31/2025 2:39 PM EDT) Historical Provider IMG XR CHEST Final Res ult * Hemoglobin A1c (08/23/2025 12:06 PM EDT) Only the most recent of2 resultswithin the time period is included. Blood Hung Merchant [facility] LAB BLOOD BKR ORDERABLES F inal Result Performing Organization Address [facility] Co de Phone Number [address] [phone] * Comprehensive metabolic panel (08/23/2025 12:06 PM EDT) Only the most recent of2 resultswithin the time period is included. Blood Hung Merchant [facility] LAB BLOOD BKR ORDERABLES F inal Result Performing Organization Address City/[facility]/ZIP Co de Phone Number [address] [phone] * CBC (08/23/2025 12:05 PM EDT) Blood Hung Merchant [facility] LAB BLOOD BKR ORDERABLES F inal Result Performing Organization Address City/[facility]/ZIP Co de Phone Number [address] [phone] * XR HIPS BILATERAL 1-2 VIEWS (07/31/2025 [...] AM EST) HCV NON-REACTIV E NON-REACTI VE [facility] Blood 10/24/2020 8:17 AM EST 10/24/2020 8:21 AM EST us Vignesh Serrano MD LAB BLOOD BKR ORDERABLES Final Result [address] [address] from Last 3 Months or Most Recently Relevant to Health Maintenance Insurance [employer] H[employer] Care Teams Aerospace Medicine Physician Relationship Specialty Start Date End Date Hung Merchant CNP [address] [facility] [place] [address] PCP - General Nurse Practitioner 05/11/24 Pcp, Unknown 11/05/17 Mer Sellers MD [address] [place] [address] Medical Oncology 04/14/23 Additional Source Comments The information contained in this document represents components of the legal health record. It is not the complete legal health record.[facility]
--- OUTSIDE RECORDS SUMMARY | 2025-09-26 18:19 | XMS_ITS | Encounter Summary ---
Author Organization [facility] Address [address] [place] [address] [place] [address] Phone Care Team Providers Care Electronic Typesetting Machine Operator Name Role Phone Pcp, Unknown Unavailable Unavailable Duke Lopes DO Primary Care Provider [phone] Mer Sellers MD Unavailable [phone] Hung Merchant [employer] Primary Care Provider [phone] Encounter Details Date Type Department Care Team (Late st Contact Info) Description 05/01/2023 Procedure Pass [facility], Ct Scan - [address] [address] Social History Tobacco Use Types Packs/Day Years [...] st Contact Info) Description 05/23/2025 Procedure Pass [facility], Mammography- [address] [address] 11/24/2025 10:00 AM EST Office Visit [facility] at [address] [address] Mer Sellers MD [address] [place] [address] 11/29/2025 4:00 PM EST Office Visit [address] [address] Hung Merchant, [employer] [address] [place] [address] 12/06/2025 8:15 AM EST Appointment [address] [address] Hung Merchant, [employer] [address] [place] [address] [email or web address] 01/05/2026 10:45 AM EST Appointment [address] [address] Mer Sellers MD [address] [place] [address] [email or web address] documented as of this encounter Visit Diagnoses Not on filedocumented in this encounter Additional Health Concerns Assessment Noted Time PHQ-2 Depression Total Score: 0 05/31/20 21 12:36 PM EDT documented as of this encounter Care Teams Electronic Typesetting Machine Operator Relationship Specialty Start Date End Date Duke Lopes DO [address] [place] [phone] [email or web address] PCP - General Internal Medicine 03/05/23 05/10/24 Hung Merchant CNP [address] [place] [address] PCP - General Nurse Practitioner 05/11/24 Pcp, Unknown 11/05/17 Mer Sellers MD [address] [place] [address] [email or web address] Medical Oncology 04/14/23 documented as of this encounter Additional Source Comments The information contained in this document represents components of the legal health record. It is not the complete legal health record.[facility]
--- OUTSIDE RECORDS SUMMARY | 2025-09-26 18:20 | XMS_ITS | Encounter Summary ---
Author Organization [facility] Address [address] [place] [address] [place] [address] Phone Care Team Providers Care Tank Farm Gauger Name Role Phone Pcp, Unknown Unavailable Unavailable Mer Sellers MD Unavailable [phone] Hung Merchant CNP Primary Care Provider [phone] Reason for Visit * Reason Comments Medication Refill Encounter Details Date Type Department Care Team (Late st Contact Info) Description 09/25/2025 Refill [facility] Family Medicine [address] [place] [address] Hung Merchant CNP [address] [place] [address] [email or web address] Medication Refill Social History Tobacco Use Types [...] encounter Progress Notes * Darlene Lucas - 09/26/2025 7:01 AM EST Rx Care Gap Status - Instructions for Clinical Staff (prescriber discretion applies): > Mismatch review guide > Check PDMP for all controlled medication requests. Visit Info Last visit: 08/07/2025 Hung Merchant CNP - Family Medicine [facility] Neftali VERGARA > Requested f/u: Return in about 6 months (around 02/05/2026) for Medicare AWV. Upcoming visit: 11/29/2025 Hung Merchant CNP - Family Medicine [facility] Neftali VERGARA ACTIONS TAKEN BY Darlene Lucas - Checked PDMP/[place]PAT. 09/14/2025 1 Tramadol Hcl 50 Mg Tablet 30 7 Opioid Rx Protocol - tramadol HCl Controlled substance renewals are at prescriber discretion. Pain mgmt profile/toxicology (urine/saliva) may be considered annually or more frequently if indicated. In-person visit in past 2 years: Yes (Last in-person visit: 08/07/2025 (Hung Merchant, UPHOLSTERY TECH - [facility] Neftali [facility])) Visit in past 4 months: Yes No benzodiazepine on medication list Opioid agreement on file: No Pain management profile/toxicology in past 12 months: No documented in this encounter Plan of Treatment Upcoming Encounters Date Type Department Care Team (Late st Contact Info) Description 05/23/2025 Procedure Pass [address] [address] 11/24/2025 10:00 AM EST Office Visit [facility] at [address] [address] Mer Sellers MD [address] [place] [address] 11/29/2025 4:00 PM EST Office Visit [address] [address] Hung Merchant, UPHOLSTERY TECH [address] [place] [address] 12/06/2025 8:15 AM EST Appointment [address] [address] Hung Merchant, UPHOLSTERY TECH [address] [place] [address] 01/05/2026 10:45 AM EST Appointment [address] [address] Mer Sellers MD [address] [place] [address] documented as of this encounter Visit Diagnoses Diagnosis Bilateral hip pain Pain in joint, pelvic region and thigh documented in this encounter Additional Health Concerns Assessment Noted Time PHQ-2 Depression Total Score: 0 08/07/20 25 1:50 PM EDT documented as of this encounter Care Teams Tank Farm Gauger Relationship Specialty Start Date End Date Hung Merchant CNP [address] [place] [address] PCP - General Nurse Practitioner 05/11/24 Pcp, Unknown 11/05/17 Mer Sellers MD [address] [place] [address] Medical Oncology 04/14/23 documented as of this encounter Additional Source Comments The information contained in this document represents components of the legal health record. It is not the complete legal health record.[facility]
--- OUTSIDE RECORDS SUMMARY | 2025-09-26 18:20 | XMS_ITS | Encounter Summary ---
Author Organization [facility] Address [address] [place] [address] [place] [address] Phone Care Team Providers Care Biscuitware Brusher Name Role Phone Pcp, Unknown Unavailable Unavailable Mer Sellers MD Unavailable [phone] Hung Merchant CNP Primary Care Provider [phone] Reason for Visit * Reason Onset Date Comments rx refill 03/01/2025 Encounter Details Date Type Department Care Team (Late st Contact Info) Description 03/01/[address] [facility] Medicine [address] [place] [address] Hung Merchant CNP [address] [place] [address] [email or web address] rx refill Social [...] 03/01/2025 Hung Merchant CNP - Family Medicine [facility] Neftali VERGARA > Requested f/u: Return in about 6 months (around 08/31/2025) for Recheck. Upcoming visit: 11/29/2025 Hung Merchant CNP - Family Medicine [facility] Neftali VERGARA ACTIONS TAKEN BY Yulissa [...] PM EDT Tramadol 50 MG send to [facility] in [place] documented in this encounter Plan of Treatment Upcoming Encounters Date Type Department Care Team (Late st Contact Info) Description 05/23/2025 Procedure Pass [address] [address] 11/24/2025 10:00 AM EST Office Visit [facility] at [address] [address] Mer Sellers MD [address] [place] [address] 11/29/2025 4:00 PM EST Office Visit [facility] Medical [address] [address] Hung Merchant CNP [address] [place] [address] 12/06/2025 8:15 AM EST Appointment [address] [address] Hung Merchant CNP [address] [place] [address] 01/05/2026 10:45 AM EST Appointment [facility] [address] [address] Mer Sellers MD [address] [place] [address] documented as of this encounter Visit Diagnoses Diagnosis Bilateral hip pain Pain in joint, pelvic region and thigh documented in this encounter Additional Health Concerns Assessment Noted Time PHQ-2 Depression Total Score: 0 05/31/20 21 12:36 PM EDT documented as of this encounter Care Teams Biscuitware Brusher Relationship Specialty Start Date End Date Hung Merchant CNP [address] [place] [address] [email or web address] PCP - General Nurse Practitioner 05/11/24 Pcp, Unknown 11/05/17 Mer Sellers MD [address] [place] [address] Medical Oncology 04/14/23 documented as of this encounter Additional Source Comments The information contained in this document represents components of the legal health record. It is not the complete legal health record.[facility]
--- OUTSIDE RECORDS SUMMARY | 2025-09-26 18:20 | XMS_ITS | Encounter Summary ---
Author Organization [facility] Address [address] [place] [address] Phone Care Team Providers Care Pediatric Assistant Name Role Phone Pcp, Unknown Unavailable Unavailable Mer Sellers MD Unavailable [phone] Hung Merchant RACK ROOM WORKER Primary Care Provider [phone] Encounter Details Date Type Department Care Team (Latest Contact Info) Description 09/18/2025 Ancillary Orders [address] [id number] Ana Kirkpatrick MD [address] [place] [address] Orthopedics & Sports Medicine, [place], [place] [phone] [email or web address] Osteoarthritis of both hips, unspecified osteoarthritis type (Primary Dx) Social History Tobacco Use Types [...] st Contact Info) Description 05/23/2025 Procedure Pass [facility], [address] [address] 11/24/2025 10:00 AM EST Office Visit [facility] at [address] [address] Mer Sellers MD [address] [place] [address] 11/29/2025 4:00 PM EST Office Visit [address] [address] Hung Merchant, FLORENTINO [address] [place] [address] 12/06/2025 8:15 AM EST Appointment [facility], Bone Density [address] [address] Hung Merchant CNP [address] [place] [address] 01/05/2026 10:45 AM EST Appointment [facility] Mammography[address] [address] Mer Sellers MD [address] [place] [address] [email or web address] [email or web address] Results Name Type Priority Associated Diagnoses Date /Time FL Guidance Needle Placement Non-Spine Imaging Routine Osteoarthritis of both hips, unspecified osteoarthritis type 09/19/2025 12:23 PM EST Scheduled Orders Name Type Priority Associated Diagnoses Orde r Schedule FL Guidance Needle Placement Non-Spine Imaging Routine Osteoarthritis of both hips, unspecified osteoarthritis type Expected: 09/19/2025, Expires: 12/19/2025 documented as of this encounter Visit Diagnoses Diagnosis Osteoarthritis of both hips, unspecified osteoarthritis type- Primary documented in this encounter Additional Health Concerns Assessment Noted Time PHQ-2 Depression Total Score: 0 08/07/20 25 1:50 PM EDT documented as of this encounter Care Teams Pediatric Assistant Relationship Specialty Start Date End Date Hung Merchant CNP [address] [place] [address] PCP - General Nurse Practitioner 05/11/24 Pcp, Unknown 11/05/17 Mer Sellers MD [address] [place] [address] Medical Oncology 04/14/23 documented as of this encounter Additional Source Comments The information contained in this document represents components of the legal health record. It is not the complete legal health record.[facility]
--- OUTSIDE RECORDS SUMMARY | 2025-09-26 18:20 | XMS_ITS | Encounter Summary ---
Author Organization [facility] Address [address] [place] [address] [place] [address] Phone Care Team Providers Care Warehouse Person Name Role Phone Pcp, Unknown Unavailable Unavailable Mer Sellers MD Unavailable [phone] Hung Merchant CNP Primary Care Provider [phone] Reason for Visit * Reason Comments Medication Refill Encounter Details Date Type Department Care Team (Late st Contact Info) Description 09/12/2025 [facility] [address] [place] [address] Hung Merchnat CNP [address] [place] [address] [email or web address] Medication Refill Social History Tobacco Use Types [...] st Contact Info) Description 05/23/2025 Procedure Pass [facility], [address] [address] 11/24/2025 10:00 AM EST Office Visit [facility] at [address] [address] Mer Sellers MD [address] [place] [address] 11/29/2025 4:00 PM EST Office Visit [address] [address] Hung Merchant, FLORENTINO [address] [place] [address] 12/06/2025 8:15 AM EST Appointment [facility], Bone Density [address] [address] Hung Merchant CNP [address] [place] [address] 01/05/2026 10:45 AM EST Appointment [facility] Mamm[address] [address] Mer Sellers MD 30 [place] [address] documented as of this encounter Visit Diagnoses Diagnosis Bilateral hip pain Pain in joint, pelvic region and thigh documented in this encounter Additional Health Concerns Assessment Noted Time PHQ-2 Depression Total Score: 0 08/07/20 25 1:50 PM EDT documented as of this encounter Care Teams Warehouse Person Relationship Specialty Start Date End Date Hung Merchant CNP [address] [place] [address] PCP - General Nurse Practitioner 05/11/24 Pcp, Unknown 11/05/17 Mer Sellers MD [address] [place] [address] Medical Oncology 04/14/23 documented as of this encounter Additional Source Comments The information contained in this document represents components of the legal health record. It is not the complete legal health record.[facility]
--- OUTSIDE RECORDS SUMMARY | 2025-09-26 18:20 | XMS_ITS | Encounter Summary ---
Author Organization [facility] Address [address] [place] [address] Phone Care Team Providers Care Branch Operations Coordinator Name Role Phone Pcp, Unknown Unavailable Unavailable Mer Sellers MD Unavailable [phone] Hung Merchant CNP Primary Care Provider [phone] Encounter Details Date Type Department Care Team (Late st Contact Info) Description [address] [facility] [address] [place] [address] Hung Merchant, FLORENTINO [address] [place] [address] [email or web address] Social History Tobacco Use Types Packs/Day Years [...] st Contact Info) Description 05/23/2025 Procedure Pass [facility], [address] [address] 11/24/2025 10:00 AM EST Office Visit [facility] at [address] [address] Mer Sellers MD [address] [place] [address] 11/29/2025 4:00 PM EST Office Visit [address] [address] Hung Merchant CNP [address] [place] [address] 12/06/2025 8:15 AM EST Appointment [facility], Bone Density - [address] [address] Hung Merchant CNP [address] [place] [address] [email or web address] 01/05/2026 10:45 AM EST Appointment [facility], Mamm[address] [address] Mer Sellers MD [address] [place] [address] documented as of this encounter Visit Diagnoses Not on filedocumented in this encounter Additional Health Concerns Assessment Noted Time PHQ-2 Depression Total Score: 0 05/31/20 21 12:36 PM EDT documented as of this encounter Care Teams Branch Operations Coordinator Relationship Specialty Start Date End Date Hung Merchant CNP [address] [place] [address] PCP - General Nurse Practitioner 05/11/24 Pcp, Unknown 11/05/17 Mer Sellers MD [address] [place] [address] Medical Oncology 04/14/23 documented as of this encounter Additional Source Comments The information contained in this document represents components of the legal health record. It is not the complete legal health record.[facility]
--- OUTSIDE RECORDS SUMMARY | 2025-09-26 18:20 | XMS_ITS | Encounter Summary ---
Author Organization [facility] Address [address] [place] [address] Phone Care Team Providers Care Resort Desk Clerk Name Role Phone Pcp, Unknown Unavailable Unavailable Mer Sellers MD Unavailable [phone] Hung Merchant [facility] Primary Care Provider [phone] Encounter Details Date Type Department Care Team (Late st Contact Info) Description 08/31/2025 Orders Only [facility] [address] [place] [address] Provider, MD Cesilia [address] [place], [place] [phone] Social History Tobacco Use Types Packs/Day Years [...] st Contact Info) Description 05/23/2025 Procedure Pass [facility] Mamm[address] [address] 11/24/2025 10:00 AM EST Office Visit [facility] at [address] [address] Mer Sellers MD [address] [place] [address] [email or web address] 11/29/2025 4:00 PM EST Office Visit [facility] [address] [address] Hung Merchant, FLORENTINO [address] [place] [address] 12/06/2025 8:15 AM EST Appointment [address] [address] Hung Merchant CNP [address] [place] [address] 01/05/2026 10:45 AM EST Appointment [facility], [facility] 30 [place] [address] Mer Sellers MD 30 [place] [address] documented as of this encounter Procedures Procedure Name Priority Date/Time Associated Diagnosis Comments OUTSIDE IMAGING Routine 08/31/2025 2:39 PM EDT documented in this encounter Results * Outside Imaging Report Only (08/31/2025 2:39 PM EDT) us Historical Provider IMAdolph XR CHEST Final Res ult documented in this encounter Visit Diagnoses Not on filedocumented in this encounter Additional Health Concerns Assessment Noted Time PHQ-2 Depression Total Score: 0 08/07/20 25 1:50 PM EDT documented as of this encounter Care Teams Resort Desk Clerk Relationship Specialty Start Date End Date Hung Merchant CNP [address] [place] [address] PCP - General Nurse Practitioner 05/11/24 Pcp, Unknown 11/05/17 Mer Sellers MD [address] [place] [address] Medical Oncology 04/14/23 documented as of this encounter Additional Source Comments The information contained in this document represents components of the legal health record. It is not the complete legal health record.[facility]
--- OUTSIDE RECORDS SUMMARY | 2025-09-26 18:20 | XMS_ITS | Data Portability ---
Author Organization [facility] [employer] Address [address] [place] [address] Care Team Providers Care Breeding Technician Name Role Phone YVONNE RANGEL Primary Care [...] (ggt), serum 2021 [facility], [address] [place], [address], 10:44:19 TSH, serum or plasma 2021 [facility], [address] [place], [address], 10:44:20 vitamin D, 25-hydroxy, total, serum 2021 [facility], [address] [place], [address], 10:44:19 lipid panel, serum 2021 [facility], [address] [place], [address], 10:44:19 CMP, serum or plasma 2021 [facility], [address] [place], [address], 10:44:20 uric acid, serum or plasma 2021 [facility], [address], [place], [address], 20:09:27 HbA1c (hemoglobin A1c), blood 2021 [facility], [address], [place], [address], 19:54:59 lipid panel, serum 2021 [facility], [address], [place], [address], 20:09:26 CBC w/ auto diff 2021 [facility], [address], [place], [address], 19:26:37 ferritin, serum or plasma 2021 [facility], [address], [place], [address], 20:12:03 CMP, serum or plasma 2021 [facility], [address], [place], [address], 20:09:23 Referral None recorded. Procedures None recorded. Surgeries None recorded. Imaging MRI, brain, w/wo contrast - Double vision, unilateral COFFEY. Recent surgical revision of adenocarcin tracy. Concern form jannet/tumor. 2021 [facility] ([facility]), [address] [facility], [place], [address], 09:35:42 XR, foot, 3 or more view - Log fell on R foot - edema, erythema forefoot. Ecchymosis resolving. r/o fracure. Fracture vs gouty arthritis R great toe. 2021 [facility] ([facility]), [address], [place], [address], 14:13:45 Medication Orders lisinopril 20 mg tablet 2021 [id number], [address], [place], [place], [id number], 12:50:47 hydrochloro thiazide 25 mg tablet 2021 [id number], [address], [place], [place], [id number], 12:50:01 colchicine 0.6 mg tablet 2021 [id number], [address], [place], [place], [id number], 09:47:48 Patient TargetsNo targets recorded. Patient InstructionsNo [...] tissue s. IMPRES MIGUEL: Normal . WSN: [id number] Orderi ng Physic daron: Yvonne Choi Dictat ed By: Sana Mason MD Dictat ed Date/T horacio: 2:10 pm Review ed By: Sana Mason MD Signed By: Sana Mason MD Signed Date/T horacio: 2:10 pm Transc ribed By: KELSY Transc ribed Date/T horacio: 2:09 pm Patien t Class: 5 [email or web address] [facility] ([facility]) [address] [place] [address], [address], 07/29/2022 14:47:29 Result Notes Documentation Provider Name and Address Organization Details Recorded Time Xr, Foot, 3 Or More View : Foot Min 3 Views Right, 3 views Reason: edema, erythema, trauma COMPARISON: None. FINDINGS: No fractures or bone lesions. No arthritic changes. Normal soft tissues. IMPRESSION: Normal. WSN: [id number] Ordering Physician: Yvonne Rangel Dictated By: Tristen [...] and Address Organization Details Recorded Time Anemia 880998397 Active 2021 Yvonne Rangel null, [place] [facility] 11:32:16 Gout 41238235 Active 2021 Yvonne Rangel null, [place] - [facility] 2 11:41:36 Primary adenocarcin tracy of colon 1514601597514 Active 2021 [facility] [place] [facility] 2 11:44:14 Electrolyte imbalance 011699407 Active 2021 [facility], [place] [facility] 2 11:44:52 Female urinary stress incontinenc e 70461317 Active 2021 Yvonne Claire null, [place] - [facility] 2 10:15:29 Alkaline phosphatase above reference range 433401868 Active 2021 Yvonne Claire null, [place] - [facility] 2 10:40:07 Hyperlipide jacqui 61461140 Active 2021 Yvonne Claire null, [place] - [facility] 2 10:42:21 Problem Notes None recorded. Procedures Surgical History Date Name Laterality Status Provider Name and Address Organization Details Recorded Time Colonoscopy completed Reshma Reyes [place] - [facility] 08/25/2022 11:45:18 Imaging Results None recorded. [...] Not available Not available Not available 07/29/2022 [id number] SNOMED Reshma Reyes [facility], [place] - [facility] 2 10:45:46 Medications Name [...] mass index (BMI) Body height Oxygen saturation Heart rate Systolic And Diastolic Provider Name and Address Organization Details Last Updated DateTime 2 26446.4 6 g 30.9 kg/m2 165.1 cm 97 % 75 /min 134/68 mm[Hg] Reshma Reyes [place] - [facility] 2 10:45:19 Date Recorded Body height Body mass index (BMI) Body weight Heart rate Oxygen saturation Systolic And Diastolic Provider Name and Address Organization Details Last Updated DateTime 2 165.1 cm 31.5 kg/m2 85065.9 6 g 76 /min 97 % 142/76 mm[Hg] Reshma Amy [place] - [facility] 2 09:44:09 Date Recorded Body height Body mass index (BMI) Body weight Oxygen saturation Heart rate Systolic And Diastolic Provider Name and Address Organization Details Last Updated DateTime 2 165.1 cm 32 kg/m2 63242.4 4 g 98 % 84 /min 132/74 mm[Hg] Reshma Amy [place] - [facility] 2 10:37:10 Social History None recorded. Functional Status None recorded. Mental Status None recorded. Family History Nothing Reported. Medical History No medical history recorded. Gynecological History Statement/Question Response Colonoscopy 05/19/2022 Obstetrics History GPAL:G 0 P 0 0 0 0 Immunizations Vaccine Type Date Status Note Provider Nam e and Address Organization Details Recorded Time zoster live 08/03/2017 completed Reshma Amy null, [place] [facility] 08/25/2022 11:40:34 Influenza, high-dose, trivalent, PF 09/06/2018 completed Reshma Amy null, [place] [facility] 08/25/2022 11:40:34 COVID-19 vaccine, vector-nr, rS-Ad26, PF, 0.5 mL 03/01/2021 completed Reshma Amy null, [place] [facility] 08/25/2022 11:40:34 Influenza, adjuvanted, trivalent, PF 09/01/2017 completed Reshma Amy null[place] [facility] 08/25/2022 11:40:34 influenza, unspecified formulation 08/03/2017 completed Reshma Amy null[place] [facility] 08/25/2022 11:40:34 Influenza, adjuvanted, quadrivalent, PF 08/04/2022 completed Reshma Amy null[place] [facility] 08/26/2022 09:40:35 Tdap 02/27/2016 completed Reshma Amy null, [place] [facility] 07/29/2022 10:52:20 Past Encounters Encounter ID Performer Location Encounter Start Date Encounter Closed Date Diagnosis/Indication Diagnosis SNOMED-CT Code Diagnosis ICD10 Code Diagnosis IMO Codes Diagnosis Note [id number] Yvonne Savidge, [employer] VENDOR-C [address] [place] [address] [place] [address] 07/29/2022 10:35:17 07/29/2022 11:54:45 Pain in right foot 8498729798 35922 M79.671 R foot injury, will investigat e with Xray - also history of gout. R great toe with marked erythema, no warmth, mild edema. Will call with results and plan Gout 09189304 M10.9 Uses colchicine prn - requested refill. Anemia 340451492 D64.9 Has been on liquid iron in the past - anemia may have resolved as it may be related to blood loss from bleeding tumor/surg leon. Will eval today. Electrolyte imbalance 10 5053064 E87.8 History of hypokalemi a - will check CMP. Also hx of CKD. Primary adenocarcinoma of colon 2151239470 [address] Garcia as planned. Diabetes m ellitus screening 168920510 Z13.1 [id number] Yvonne Rangel [address] [place] [address] 08/26/2022 09:38:16 08/26/2022 10:35:05 Diplopia 66044875 H53.2 Will get MRI - will work on getting this relatively quickly. Has appt with opthal today as well. No other neuro deficit, but does have unilateral COFFEY. Defers all other work ups at this time. Alkaline p hosphatase above reference range 011578136 R74.8 Would like to get further labs for this, but Roseanne defers at this time. Will FU with this next appt. Hyperlipidemia 39230374 E78.5 Adult heal th examination 358322295 Z00.00 Will discuss labs, mammo, dexa, PNA vaccine, and shingles vaccine next appt. She defers at this time due to concern for diploplia and headache. [id number] Mago Jama, WALTER [address] [place] [address] 09/18/2022 10:27:30 09/18/2022 11:05:36 Hyperlipidemia 44872973 E78.5 Hypertensive disorder 38 003233 I10 Diplopia 83216313 H53.2 I reviewed pt's MRI and suggest we obtain a repeat study utilizing cavernous sinus protocol per radiology recommendray desir. I also recommend a consult with neuro surgery. She asks if this would be through [facility], or in [place] , and I stated no. She would not like to pursue any care through [facility] but would consider [facility], but also states I will not [...] ID Cosme Member ID Guarantor Name 09/15/[address] [place] [address] - MEDICARE ADVANTAGE PLAN (MEDICARE REPLACEMENT HMO) [id number] Roseanne Ponce [id number] Roseanne Ponce Notes Date Note Type Note [...] identify eye) - had eye exam in [place]. Had eye exam and new glasses without [...] again 3-4 weeks ago. Yvonne gonzalez, LESLY - [facility] 08/26/2022 10:49:45 09/18/2022 text/html ROS as [...] less severe left sided headches. Mago Jama, KAYAKING INSTRUCTOR [address] [facility] [address], [place], [address], LESLY [facility] 09/18/2022 13:40:37 OBGyn Episode No OBEpisode recorded.
--- OUTSIDE RECORDS SUMMARY | 2025-09-26 18:20 | XMS_ITS | Encounter Summary ---
Author Organization [facility] Address [address] [place] [address] [place] [address] Phone Care Team Providers Care Plant Superintendent Name Role Phone Pcp, Unknown Unavailable Unavailable Duke Lopes DO Primary Care Provider [phone] Mer Sellers MD Unavailable [phone] Hung Merchant CNP Primary Care Provider [phone] Reason for Referral * MRI/CAT Scan - Closed Specialty Diagnoses / Procedures Referred By Malik brown Referred To Contact Radiology Diagnoses Pituitary lesion Procedures MRI Brain CHG MRI BRAIN COMBO Juanito Hassan MD [address] [place] [address], [address] [place] [address] Phone: tel: fax: [email or web address] Referral ID Status Reason Start Date Expiration Date Visits Re quested Visits Authorized [id number] Closed 09/10/2023 11/09/2023 1 1 Encounter Details Date Type Department Care Team (Latest Contact Info) Description 09/10/2023 Transcribe Orders Virtual Department [address] [place], [place] [phone] Juanito Hassan MD [address] [place] [address], [address] [place] [address] [phone] [email or web address] Pituitary lesion (Primary Dx) Social History [...] st Contact Info) Description 05/23/2025 Procedure Pass [address] [address] 11/24/2025 10:00 AM EST Office Visit [facility] at [address] [address] Mer Sellers MD [address] [place] [phone] [email or web address] 11/29/2025 4:00 PM EST Office Visit [facility] [address] [address] Hung Merchant, HAND CROWN POUNCER [address] [place] [address] 12/06/2025 8:15 AM EST Appointment 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 us Juanito Hassan MD IMG MR HEAD/NECK Final Resul t documented in this encounter Visit Diagnoses Diagnosis Pituitary lesion- Primary Pituitary lesion documented in this encounter Additional Health Concerns Assessment Noted Time PHQ-2 Depression Total Score: 0 05/31/20 21 12:36 PM EDT documented as of this encounter Care Teams Plant Superintendent Relationship Specialty Start Date End Date Marianne NatashaDO sukhdev [address] [place] [address] [address] [place] [phone] [email or web address] PCP - General Internal Medicine 03/05/23 05/10/24 Hung Merchant CNP [address] [place] [phone] [email or web address] PCP - General Nurse Practitioner 05/11/24 Pcp, Unknown 11/05/17 Mer Sellers MD [address] [place] [address] Medical Oncology 04/14/23 documented as of this encounter Additional Source Comments The information contained in this document represents components of the legal health record. It is not the complete legal health record.[facility]
--- OUTSIDE RECORDS SUMMARY | 2025-09-26 18:20 | XMS_ITS | Encounter Summary ---
Author Organization [facility] Address [address] [place] [address] Phone Care Team Providers Care Hazardous Material Technician Name Role Phone Pcp, Unknown Unavailable Unavailable Mer Sellers MD Unavailable [phone] Hung Merchant CNP Primary Care Provider [phone] Encounter Details Date Type Department Care Team (Late st Contact Info) Description 09/28/2024 Procedure Pass [facility], [address] [address] Social History Tobacco Use Types Packs/Day Years [...] st Contact Info) Description 05/23/2025 Procedure Pass [address] [address] 11/24/2025 10:00 AM EST Office Visit [facility] at [address] [address] Mer Sellers MD [address] [place] [address] 11/29/2025 4:00 PM EST Office Visit [facility] [address] [address] Hung Merchant CNP [address] [place] [address] 12/06/2025 8:15 AM EST Appointment [address] [address] Hung Merchant CNP [address] [place] [address] 01/05/2026 10:45 AM EST Appointment [facility], [address] [address] Mer Sellers MD [address] [place] [address] [email or web address] documented as of this encounter Visit Diagnoses Not on filedocumented in this encounter Additional Health Concerns Assessment Noted Time PHQ-2 Depression Total Score: 0 05/31/20 21 12:36 PM EDT documented as of this encounter Care Teams Hazardous Material Technician Relationship Specialty Start Date End Date Hung Merchant CNP [address] [place] [address] [place] [address] PCP - General Nurse Practitioner 05/11/24 Pcp, Unknown 11/05/17 Mer Sellers MD [address] [place] [address] Medical Oncology 04/14/23 documented as of this encounter Additional Source Comments The information contained in this document represents components of the legal health record. It is not the complete legal health record.[facility]
--- OUTSIDE RECORDS SUMMARY | 2025-09-26 18:20 | XMS_ITS | Encounter Summary ---
Author Organization [facility] Address [address] [place] [address] [place] [address] Phone Care Team Providers Care Board Handler Name Role Phone Pcp, Unknown Unavailable Unavailable Duke Lopes DO Primary Care Provider [phone] Mer Sellers MD Unavailable [phone] Hung Merchant CNP Primary Care Provider [phone] Encounter Details Date Type Department Care Team (Late st Contact Info) Description 09/10/2023 Procedure Pass [address] [address] Social History Tobacco Use Types Packs/Day Years [...] (Late st Contact Info) Description 05/23/[address] [address] 11/24/2025 10:00 AM EST Office Visit [facility] at [address] [address] Mer Sellers MD [address] [place] [address] 11/29/2025 4:00 PM EST Office Visit [address] [address] Hung Merchant, FLORENTINO [address] [place] [address] 12/06/2025 8:15 AM EST Appointment [address] [address] Hung Merchant CNP [address] [place] [address] 01/05/2026 10:45 AM EST Appointment [address] [address] Mer Sellers MD [address] [place] [address] [email or web address] documented as of this encounter Visit Diagnoses Not on filedocumented in this encounter Additional Health Concerns Assessment Noted Time PHQ-2 Depression Total Score: 0 05/31/20 21 12:36 PM EDT documented as of this encounter Care Teams Board Handler Relationship Specialty Start Date End Date Duke Lopes DO [address] [place] [phone] [email or web address] PCP - General Internal Medicine 03/05/23 05/10/24 Hung Merchant CNP [address] [place] [address] [email or web address] PCP - General Nurse Practitioner 05/11/24 Pcp, Unknown 11/05/17 Mer Sellers MD [address] [place] [address] [email or web address] Medical Oncology 04/14/23 documented as of this encounter Additional Source Comments The information contained in this document represents components of the legal health record. It is not the complete legal health record.[facility]
--- OUTSIDE RECORDS SUMMARY | 2025-09-26 18:20 | XMS_ITS | Encounter Summary ---
Author Organization [facility] Address [address] [facility] [address] [place] [address] Phone Care Team Providers Care Command And Control Systems Integrator Name Role Phone Pcp, Unknown Unavailable Unavailable Mer Sellers MD Unavailable [phone] Hung Merchant CNP Primary Care Provider [phone] Reason for Visit * Reason Onset Date Comments Triage 2025 Hip pain Encounter Details Date Type Department Care Team (Late st Contact Info) Description 2025 Telephone [facility] Medicine [address] [place] [address] Hung Merchant CNP [address] [place] [address] [email or web address] Triage (Hip pain ) Social History [...] Call Back Number: (if not patient, name/relationship [phone] Green Symptom(s): Triage (Hip pain ) When [...] Contact Info) Description 05/23/2025 Procedure Pass [address] [address] 11/24/2025 10:00 AM EST Office Visit [facility] at [address] [address] Mer Sellers MD [address] [place] [address] 11/29/2025 4:00 PM EST Office Visit [address] [address] Hung Merchant CNP [address] [place] [address] 12/06/2025 8:15 AM EST Appointment [facility] [place] [facility]ensity [address] [address] Hung Merchant CNP [address] [place] [address] [email or web address] 01/05/2026 10:45 AM EST Appointment [address] [address] Mer Sellers MD [address] [place] [address] documented as of this encounter Visit Diagnoses Not on filedocumented in this encounter Additional Health Concerns Assessment Noted Time PHQ-2 Depression Total Score: 0 05/31/20 21 12:36 PM EDT documented as of this encounter Care Teams Command And Control Systems Integrator Relationship Specialty Start Date End Date Hung Merchant CNP [address] [place] [address] [email or web address] PCP - General Nurse Practitioner 05/11/24 Pcp, Unknown 11/05/17 Mer Sellers MD [address] [place] [address] [email or web address] Medical Oncology 04/14/23 documented as of this encounter Additional Source Comments The information contained in this document represents components of the legal health record. It is not the complete legal health record.[facility]
--- OUTSIDE RECORDS SUMMARY | 2025-09-26 18:20 | XMS_ITS | Encounter Summary ---
Author Organization [facility] Address [address] [place] [address] [place] [address] Phone Care Team Providers Care Migration Specialist Name Role Phone Pcp, Unknown Unavailable Unavailable Mer Sellers MD Unavailable [phone] Hung Merchant CNP Primary Care Provider [phone] Reason for Visit * Reason Comments Medication Refill Encounter Details Date Type Department Care Team (Late st Contact Info) Description 07/17/2025 Refill [facility] Family Medicine [address] [place] [address] Hung Merchant CNP [address] [place] [address] [email or web address] Medication Refill Social History Tobacco Use Types [...] requests. Visit Info Last visit: 03/01/2025 Hung Merchant CNP - Family Medicine [facility] > Requested f/u: Return in about 6 months (around 08/31/2025) for Recheck. Upcoming visit: 11/29/2025 Hung Merchant CNP - Family [facility] ACTIONS TAKEN BY Darlene Lucas - [...] in-person visit: 03/01/2025 (Hung Merchant CNP - [facility])) Visit in past 4 months: No No benzodiazepine on medication list Opioid agreement on file: No Pain management profile/toxicology in past 12 months: No documented in this encounter Plan of Treatment Upcoming Encounters Date Type Department Care Team (Late st Contact Info) Description 05/23/2025 Procedure Pass [facility], [facility]- [address] [address] 11/24/2025 10:00 AM EST Office Visit [facility] at [address] [address] Mer Sellers MD [address] [place] [address] 11/29/2025 4:00 PM EST Office Visit [address] [address] Hung Merchant CNP [address] [place] [address] 12/06/2025 8:15 AM EST Appointment [facility], Bone Density [address] [address] Hung Merchant CNP [address] [place] [address] [email or web address] 01/05/2026 10:45 AM EST Appointment [facility] [address]amm[address] [address] Mer Sellers MD [address] [place] [address] documented as of this encounter Visit Diagnoses Diagnosis Bilateral hip pain Pain in joint, pelvic region and thigh documented in this encounter Additional Health Concerns Assessment Noted Time PHQ-2 Depression Total Score: 0 05/31/20 21 12:36 PM EDT documented as of this encounter Care Teams Migration Specialist Relationship Specialty Start Date End Date Hung Merchant CNP [address] [place] [address] PCP - General Nurse Practitioner 05/11/24 Pcp, Unknown 11/05/17 Mer Sellers MD [address] [place] [address] Medical Oncology 04/14/23 documented as of this encounter Additional Source Comments The information contained in this document represents components of the legal health record. It is not the complete legal health record.[facility]
--- OUTSIDE RECORDS SUMMARY | 2025-09-26 18:20 | XMS_ITS | Encounter Summary ---
Author Organization [facility] Address [address] [facility] [address] [place] [address] Phone Care Team Providers Care Security Manager Name Role Phone Pcp, Unknown Unavailable Unavailable Mer Sellers MD Unavailable [phone] Hung Merchant CNP Primary Care Provider [phone] Encounter Details Date Type Department Care Team (Late st Contact Info) Description 08/24/2025 Orders Only [facility] [address] [place], [place] [id number] Hung Merchant, FLORENTINO [address] [place] [address] [email or web address] Type 2 diabetes mellitus without complication, without [...] st Contact Info) Description 05/23/2025 Procedure Pass [address] [address] 11/24/2025 10:00 AM EST Office Visit [facility] General Cancer Center at [address] [address] Mer Sellers MD [address] [place] [address] 11/29/2025 4:00 PM EST Office Visit [address] [address] Hung Merchant, FLORENTINO [address] [place] [address] 12/06/2025 8:15 AM EST Appointment [facility], Bone [address] [address] Hung Merchant CNP [address] [place] [address] 01/05/2026 10:45 AM EST Appointment [facility], Mamm[address] [address] Mer Sellers MD [address] [place] [address] [email or web address] documented as of this encounter Procedures Procedure [...] Hemoglobin A1c (08/23/2025 12:06 PM EDT) Blood us Hung Merchant ENGINEERING FACULT[employer] MEMBER LAB BLOOD BKR ORDERABLES F inal Result [address] [address] * Comprehensive metabolic panel (08/23/2025 12:06 PM EDT) Blood Hung Merchant ENGINEERING FAC[employer]BER LAB BLOOD BKR ORDERABLES F inal Result Performing Organization Address [facility]/ZIP Co de Phone Number [address] [address] * CBC (08/23/2025 12:05 PM EDT) Blood Hung Merchant ENGINEERING FACULT[employer] MEMBER LAB BLOOD BKR ORDERABLES F inal Result Performing Organization Address [facility] Co de Phone Number [address] [address] documented in this encounter Visit Diagnoses Diagnosis Type 2 diabetes mellitus without complication, without long-term current use of insulin White coat syndrome with diagnosis of hypertension documented in this encounter Additional Health Concerns Assessment Noted Time PHQ-2 Depression Total Score: 0 08/07/20 25 1:50 PM EDT documented as of this encounter Care Teams Security Manager Relationship Specialty Start Date End Date Mayur Hungisaac Medina CNP [address] [place] [address] PCP - General Nurse Practitioner 05/11/24 Pcp, Unknown 11/05/17 Mer Sellers MD [address] [place] [address] Medical Oncology 04/14/23 documented as of this encounter Additional Source Comments The information contained in this document represents components of the legal health record. It is not the complete legal health record.[facility]
--- OUTSIDE RECORDS SUMMARY | 2025-09-26 18:20 | XMS_ITS | Clinical Summary ---
Author Organization [facility] Address [address] [place] [address] Phone Care Team Providers Care Bariatric Program Coordinator Name Role Phone Avtargeni Natashasukhdev Primary Care Provider [phone] Surgical History Surgery Date Site/Laterality Comments ABDOMINAL SURGERY PROCEDURE: HISTORICAL ABDOMINAL SURGERY Medical History Medical History Date Comments Headache DX:Headache Double vision DX:Double vision Essential hypertension DX:Essent ial hypertension Diabetes mellitus type 2, co ntrolled, with complications (CMS/HCC V24, CMS/HCC V28) DX:Diabetes mellitus type 2, controlled, with complications ([facility]) Social History Tobacco Use Types Packs/Day Years [...] Depression Screening 11/02/2024 COVID-19 Vaccine (1 - 2024-2 6 season) 2025 Influenza Vaccine (#1) 2025 HIB [...] [employer] [place] [employer] Care Teams Bariatric Program Coordinator Relationship Specialty Start Date End Date Duke Lopes DO [address] [place] [phone] PCP - General 01/25/24
--- OUTSIDE RECORDS SUMMARY | 2025-09-26 18:20 | XMS_ITS | Encounter Summary ---
Author Organization [facility] Address [address] [place] [address] Phone Care Team Providers Care Bleach Boiler Packer Name Role Phone Pcp, Unknown Unavailable Unavailable Mer Sellers MD Unavailable [phone] Hung Merchant CNP Primary Care Provider [phone] Encounter Details Date Type Department Care Team (Late st Contact Info) Description 08/31/2024 Procedure Pass [facility], Ct Scan - [address] [address] Social History Tobacco Use Types Packs/Day Years [...] st Contact Info) Description 05/23/2025 Procedure Pass [address] [address] 11/24/2025 10:00 AM EST Office Visit [facility] at [address] [address] Mer Sellers MD [address] [place] [address] 11/29/2025 4:00 PM EST Office Visit [facility] Medical [address] [address] Hung Merchant, FLORENTINO [address] [place] [address] 12/06/2025 8:15 AM EST Appointment [address] [address] Hung Merchant, FLORENTINO [address] [place] [address] 01/05/2026 10:45 AM EST Appointment [facility], [address] [address] Mer Sellers MD [address] [place] [address] [email or web address] documented as of this encounter Visit Diagnoses Not on filedocumented in this encounter Additional Health Concerns Assessment Noted Time PHQ-2 Depression Total Score: 0 05/31/20 21 12:36 PM EDT documented as of this encounter Care Teams Bleach Boiler Packer Relationship Specialty Start Date End Date Hung Merchant CNP [address] [place] [address] [place] [address] PCP - General Nurse Practitioner 05/11/24 Pcp, Unknown 11/05/17 Mer Sellers MD [address] [place] [address] Medical Oncology 04/14/23 documented as of this encounter Additional Source Comments The information contained in this document represents components of the legal health record. It is not the complete legal health record.[facility]
--- OUTSIDE RECORDS SUMMARY | 2025-09-26 18:20 | XMS_ITS | Encounter Summary ---
Author Organization [facility] Address [address] [place] [address] Phone Care Team Providers Care Library Consultant Name Role Phone Pcp, Unknown Unavailable Unavailable Mer Sellers MD Unavailable [phone] Hung Merchant CNP Primary Care Provider [phone] Encounter Details Date Type Department Care Team (Late st Contact Info) Description 08/31/2024 Procedure Pass [facility], Ct Scan - [address] [address] Social History Tobacco Use Types Packs/Day Years [...] st Contact Info) Description 05/23/2025 Procedure Pass [address] [address] 11/24/2025 10:00 AM EST Office Visit [facility] at [address] [address] Mer Sellers MD [address] [place] [address] 11/29/2025 4:00 PM EST Office Visit [facility] Medical [address] [address] Hung Merchant, FLORENTINO [address] [place] [address] 12/06/2025 8:15 AM EST Appointment [address] [address] Hung Merchant, FLORENTINO [address] [place] [address] 01/05/2026 10:45 AM EST Appointment [facility], [address] [address] Mer Sellers MD [address] [place] [address] documented as of this encounter Visit Diagnoses Not on filedocumented in this encounter Additional Health Concerns Assessment Noted Time PHQ-2 Depression Total Score: 0 05/31/20 21 12:36 PM EDT documented as of this encounter Care Teams Library Consultant Relationship Specialty Start Date End Date Hung Merchant CNP [address] [place] [address] [place] [address] PCP - General Nurse Practitioner 05/11/24 Pcp, Unknown 11/05/17 Mer Sellers MD [address] [place] [address] Medical Oncology 04/14/23 documented as of this encounter Additional Source Comments The information contained in this document represents components of the legal health record. It is not the complete legal health record.[facility]
--- OUTSIDE RECORDS SUMMARY | 2025-09-26 18:20 | XMS_ITS | Encounter Summary ---
Author Organization [facility] Address [address] [place] [address] [place] [address] Phone Care Team Providers Care Tiedown Operator Name Role Phone Pcp, Unknown Unavailable Unavailable Mer Sellers MD Unavailable [phone] Hung Merchant CNP Primary Care Provider [phone] Reason for Visit * Reason Comments Medication Refill Encounter Details Date Type Department Care Team (Late st Contact Info) Description 07/19/2025 Refill [facility] Family Medicine [address] [place] [address] Hung Merchant CNP [address] [place] [address] [email or web address] Medication Refill Social History Tobacco Use [...] st Contact Info) Description 05/23/2025 Procedure Pass [facility], Mammography- [address] [address] 11/24/2025 10:00 AM EST Office Visit [facility] General Cancer Center at [address] [address] Mer Sellers MD [address] [place] [address] [email or web address] 11/29/2025 4:00 PM EST Office Visit [address] [address] Hung Merchant CNP [address] [place] [address] 12/06/2025 8:15 AM EST Appointment [address] [address] Hung Merchant CNP [address] [place] [address] [email or web address] 01/05/2026 10:45 AM EST Appointment [address] [address] Mer Sellers MD [address] [place] [address] documented as of this encounter Visit Diagnoses Diagnosis Bilateral hip pain Pain in joint, pelvic region and thigh documented in this encounter Additional Health Concerns Assessment Noted Time PHQ-2 Depression Total Score: 0 05/31/20 21 12:36 PM EDT documented as of this encounter Care Teams Tiedown Operator Relationship Specialty Start Date End Date Hung Merchant CNP [address] [place] [address] PCP - General Nurse Practitioner 05/11/24 Pcp, Unknown 11/05/17 Mer Sellers MD [address] [place] [address] Medical Oncology 04/14/23 documented as of this encounter Additional Source Comments The information contained in this document represents components of the legal health record. It is not the complete legal health record.[facility]
--- OUTSIDE RECORDS SUMMARY | 2025-09-26 18:20 | XMS_ITS | Encounter Summary ---
Author Organization [facility] Address [address] [place] [address] Phone Care Team Providers Care Director Biology Name Role Phone Pcp, Unknown Unavailable Unavailable Mer Sellers MD Unavailable [phone] Hung Merchant [facility] Primary Care Provider [phone] Reason for Referral * MRI/CAT Scan - Closed Specialty Diagnoses / Procedures Referred By Contac t Referred To Contact Radiology Diagnoses Meningioma Brain mass Procedures MRI Brain CHG MRI BRAIN COMBO Roxanne Hansen PA [address] [place] [address] Phone: tel: fax: Referral ID Status Reason Start Date Expiration Date Visits Re quested Visits Authorized [id number] Closed 09/28/2024 11/26/2024 1 1 Encounter Details Date Type Department Care Team (Latest Contact Info) Description 09/28/2024 Transcribe Orders Virtual Department [address] [place] [address] Roxanne Hansen PA [address] [place] [address] Meningioma (Primary Dx); Brain mass Social History [...] st Contact Info) Description 05/23/2025 Procedure Pass [facility]- [address] [address] 11/24/2025 10:00 AM EST Office Visit [facility] General Cancer Center at [address] [address] Mer Sellers MD [address] [place] [address] 11/29/2025 4:00 PM EST Office Visit [address] [address] Hung Merchant, FISH CULTURIST [address] [place] [address] 12/06/2025 8:15 AM EST Appointment [address] [address] Hung Merchant, FLORENTINO [address] [place] [address] [email or web address] 01/05/2026 10:45 AM EST Appointment [address] [address] Mer Sellers MD [address] [place] [address] [email or web address] documented as of this encounter Results * [...] clinician's provided indication for this examination in [facility]: Outside Radiology Order; meningioma TECHNIQUE: Multi-sequence, multi-planar [...] clinician's provided indication for this examination in [facility]:Outside Radiology Order; meningioma TECHNIQUE: Multi-sequence, multi-planar [...] cyst. 3. No acute intracranial abnormality. Roxanne GEE MR HEAD/NECK Final Resul t documented in [...] as of this encounter Care Teams Director Biology Relationship Specialty Start Date End Date Hung Merchant CNP [address] [facility] [place] [address] PCP - General Nurse Practitioner 05/11/24 Pcp, Unknown 11/05/17 Mer Sellers MD [address] [place] [address] [email or web address] Medical Oncology 04/14/23 documented as of this encounter Additional Source Comments The information contained in this document represents components of the legal health record. It is not the complete legal health record.[facility]
== END 2025-09-26 15:20 | disposition home or self-care (01) ==
PROVIDERS: PCP Registered Nurse; Visit Provider Surgery Vascular Surgery
DX: I72.3 Aneurysm of iliac artery (principal)
CPT/HCPCS: 99214